=== PATIENT | female | born 1970 ===

== ENCOUNTER 2020-01-15 17:28 | Outpatient (REF) | payer MEDICAID, SELFPAY ==
[2020-01-15 17:56] LABS: MANUAL DIFF FLAG NO
[2020-01-15 17:58] LABS: Basophils Percent Auto 0.6 % (0-2); Eosinophils Absolute Auto 0.1 X10*3/uL (0.0-0.4); Eosinophils Percent Auto 1.1 % (0-4); Hematocrit 24.9 % (37-47); Hemoglobin 7.6 g/dl (12.0-16.0); Imm Gran Abs Auto 0.01 X10*3/uL (0.00-0.03); Imm Gran Pct Auto 0.2 % (0.0-0.4); Lymphocytes Absolute Auto 1.5 X10*3/uL (1.2-4.9); Lymphocytes Percent Auto 22.9 % (20-40); Mean Corpuscular HGB Conc 30.5 g/dl (31.0-35.0); Mean Corpuscular Hemoglobin 26.1 pg (27.0-33.0); Mean Corpuscular Volume 85.6 fL (80-98); Mean Platelet Volume 10.7 fL (9.4-12.3); Monocytes Absolute Auto 0.7 X10*3/uL (0.1-1.2); Monocytes Percent Auto 10.9 % (2-11); Neutrophils Absolute Auto 4.2 X10*3/uL (2.0-8.3); Neutrophils Percent Auto 64.3 % (45-73); Platelet Count 392 X10*3/uL (160-400); Red Blood Count 2.91 X10*6/uL (4.20-5.50); Red Cell Distribution Width 18.7 % (11.0-16.0); White Blood Count 6.5 X10*3/uL (4.8-10.8)
[2020-01-15 19:00] LABS: TSH reflex Free T4 0.55 mIU/mL (0.32-4.0)
[2020-01-15 19:30] LABS: Ferritin 7 ng/mL (10-250)
== END 2020-01-15 17:29 | disposition home or self-care (01) ==
LOC: HO.LAB 17:28
PROVIDERS: PCP Nurse Practitioner Family; Visit Provider Nurse Practitioner Family
DX: N93.9 Abnormal uterine and vaginal bleeding, unspecified (principal)
CPT/HCPCS: 36415; 82728; 84443; 85025

== ENCOUNTER 2020-02-28 07:54 | Outpatient (REF) | payer MEDICAID, SELFPAY ==
--- NOTE | 2020-02-28 08:01 | MM_ITS ---
EXAMINATION: MM SCREENING DIGITAL BREAST TOMOSYNTHESIS, BILATERAL CLINICAL INFORMATION: Screening. Asymptomatic. The lifetime risk of breast cancer based on the Tyrer-Cuzick Model is 8.0%. COMPARISON: Mammography: February 23, 2019 and studies dating back to April 06, 2011 TECHNIQUE: Digital breast tomosynthesis is performed in both the craniocaudal and mediolateral oblique views along with computer-aided detection (CAD). Synthesized 2D images are generated from the tomosynthesis. FINDINGS: The breasts are heterogeneously dense, which may obscure small masses (ACR BI-RADS breast composition Category c). There are no significant masses, abnormal calcifications, or other abnormalities. MM/MM tomosynthesis screening BI IMPRESSION: There are no significant changes from prior study. ASSESSMENT: BI-RADS 1: Negative RECOMMENDATION: Routine annual mammography screening. This patient's information was entered into a reminder system with a target due date for their next mammogram.
== END 2020-02-28 07:55 | disposition home or self-care (01) ==
LOC: HO.MAMMO 07:54
PROVIDERS: PCP Internal Medicine; Visit Provider Internal Medicine
DX: Z12.31 Encounter for screening mammogram for malignant neoplasm of breast (principal)
CPT/HCPCS: 77063; 77067

== ENCOUNTER 2020-03-27 11:22 | Outpatient (REF) | payer MEDICAID, SELFPAY ==
--- NOTE | 2020-03-27 | US_ITS ---
EXAMINATION: US PELVIS COMPLETE CLINICAL INFORMATION: Abnormal uterine bleeding. COMPARISON: None TECHNIQUE: Transabdominal and transvaginal ultrasound of the pelvis was performed. FINDINGS: The uterus is anteverted and anteflexed measuring 11.0 cm in length, 4.9 cm in AP and 6.1 cm in transverse dimension. Endometrial thickness is 0.7 cm. There is a hypoechoic lesion in the anterior mid body of uterus measuring 1.6 x 1.3 x 1.3 cm. A second lesion in the right upper body of the uterus measures 2.9 x 2.8 x 2.9 cm. They are consistent with small fibroids. Small nabothian cysts are seen in the cervix. The right ovary is not visualized. The left ovary measures 2.6 x 1.9 x 1.8 cm and volume 4.6 mL. There is no free fluid in cul-de-sac. US/US pelvic complete IMPRESSION: 1. Two small uterine fibroids visualized. 2. Small nabothian cysts in the cervix. 3. The left ovary is unremarkable. The right ovary is not visualized.
--- NOTE | 2020-03-27 | US_ITS ---
EXAMINATION: US PELVIS COMPLETE CLINICAL INFORMATION: Abnormal uterine bleeding. COMPARISON: None TECHNIQUE: Transabdominal and transvaginal ultrasound of the pelvis was performed. FINDINGS: The uterus is anteverted and anteflexed measuring 11.0 cm in length, 4.9 cm in AP and 6.1 cm in transverse dimension. Endometrial thickness is 0.7 cm. There is a hypoechoic lesion in the anterior mid body of uterus measuring 1.6 x 1.3 x 1.3 cm. A second lesion in the right upper body of the uterus measures 2.9 x 2.8 x 2.9 cm. They are consistent with small fibroids. Small nabothian cysts are seen in the cervix. The right ovary is not visualized. The left ovary measures 2.6 x 1.9 x 1.8 cm and volume 4.6 mL. There is no free fluid in cul-de-sac. US/US transvaginal IMPRESSION: 1. Two small uterine fibroids visualized. 2. Small nabothian cysts in the cervix. 3. The left ovary is unremarkable. The right ovary is not visualized.
== END 2020-03-27 11:23 | disposition home or self-care (01) ==
LOC: HO.US 11:22
PROVIDERS: Visit Provider Nurse Practitioner Family
DX: N93.9 Abnormal uterine and vaginal bleeding, unspecified (principal)
CPT/HCPCS: 76830; 76856

== ENCOUNTER 2020-04-17 09:19 | Outpatient (REF) | payer MEDICAID, SELFPAY ==
[2020-04-17 11:51] LABS: Hematocrit 37.8 % (37-47); Mean Corpuscular HGB Conc 29.1 g/dl (31.0-35.0); Mean Corpuscular Hemoglobin 24.7 pg (27.0-33.0); Mean Corpuscular Volume 84.8 fL (80-98); Mean Platelet Volume 11.6 fL (9.4-12.3); Platelet Count 376 X10*3/uL (160-400); Red Blood Count 4.46 X10*6/uL (4.20-5.50); Red Cell Distribution Width 18.2 % (11.0-16.0); White Blood Count 6.2 X10*3/uL (4.8-10.8)
[2020-04-18 08:48] LABS: BV Int Neg Control Negative (Negative); BV Int Pos Control Positive (Positive)
[2020-04-18 17:01] LABS: C. trachomatis RNA TMA NOT DETECTED (NOT DETECTED); N. gonorrhoeae RNA TMA NOT DETECTED (NOT DETECTED)
[2020-04-20 06:37] LABS: HPV mRNA E6/E7 rflx Not Detected (Not Detected)
== END 2020-04-17 09:20 | disposition home or self-care (01) ==
LOC: HO.LAB 09:19
PROVIDERS: PCP Internal Medicine; Visit Provider Advanced Practice Midwife
DX: N93.9 Abnormal uterine and vaginal bleeding, unspecified (principal); N84.1 Polyp of cervix uteri; Z11.51 Encounter for screening for human papillomavirus (HPV); Z11.3 Encounter for screening for infections with a predominantly sexual mode of transmission
CPT/HCPCS: 36415; 57500; 58100; 58558; 81025; 85027; 87480; 87491; 87510; 87591; 87624; 87660; 88142; 88305

== ENCOUNTER 2020-04-23 09:23 | Outpatient (REF) | payer MEDICAID, SELFPAY ==
[2020-04-23 10:00] LABS: MANUAL DIFF FLAG NO
[2020-04-23 10:05] LABS: Basophils Percent Auto 0.8 % (0-2); Eosinophils Absolute Auto 0.2 X10*3/uL (0.0-0.4); Hematocrit 33.6 % (37-47); Imm Gran Abs Auto 0.02 X10*3/uL (0.00-0.03); Imm Gran Pct Auto 0.4 % (0.0-0.4); Lymphocytes Absolute Auto 0.9 X10*3/uL (1.2-4.9); Lymphocytes Percent Auto 16.7 % (20-40); Mean Corpuscular HGB Conc 29.8 g/dl (31.0-35.0); Mean Platelet Volume 11.3 fL (9.4-12.3); Monocytes Absolute Auto 0.5 X10*3/uL (0.1-1.2); Monocytes Percent Auto 8.7 % (2-11); Neutrophils Absolute Auto 3.7 X10*3/uL (2.0-8.3); Neutrophils Percent Auto 70.4 % (45-73); Platelet Count 391 X10*3/uL (160-400); Red Cell Distribution Width 18.2 % (11.0-16.0); White Blood Count 5.3 X10*3/uL (4.8-10.8)
[2020-04-23 10:36] LABS: Estimated Average Glucose 77 mg/dL; Hemoglobin A1c % 4.3 %
[2020-04-23 10:37] LABS: Alanine Aminotransferase 24 U/L (0-31); Albumin Level 3.9 g/dL (3.5-5.0); Alkaline Phosphatase 60 U/L (39-117); Anion Gap 10 (12-20); Aspartate Amino Transferase 21 U/L (5-31); Bilirubin Total 0.4 mg/dL (0.0-1.0); Blood Urea Nitrogen 12 mg/dL (9-16); Calcium 8.4 mg/dL (8.4-10.2); Carbon Dioxide 28 mmol/L (22-29); Chloride 105 mmol/L (96-108); Cholesterol 171 mg/dL; Estimated Glomerular Filt Rate > 60; Glucose Random 86 mg/dL (60-115); HDL Cholesterol 51 mg/dL; LDL Cholesterol Calculated 105 mg/dl; Potassium 4.1 mmol/L (3.3-5.1); Sodium 139 mmol/L (135-145); Total Protein 6.6 g/dL (6.5-8.0); Triglycerides 76 mg/dL
[2020-04-23 11:00] LABS: TSH reflex Free T4 0.58 uIU/mL (0.32-4.0); Vitamin D 25-OH Total 16.8 ng/mL (>30)
== END 2020-04-23 09:24 | disposition home or self-care (01) ==
LOC: HO.LAB 09:23
PROVIDERS: Visit Provider Nurse Practitioner Family
DX: D64.9 Anemia, unspecified (principal); N93.9 Abnormal uterine and vaginal bleeding, unspecified; Z71.89 Other specified counseling
CPT/HCPCS: 36415; 80053; 80061; 82306; 83036; 84443; 85025

== ENCOUNTER → 2020-05-01 11:26 | Outpatient (BNVA) | payer MEDICAID, SELFPAY | PROVIDERS: Visit Provider Advanced Practice Midwife ==

== ENCOUNTER 2020-07-02 13:41 | Outpatient (REF) | payer MEDICAID, SELFPAY ==
[2020-07-05 15:11] LABS: HPV mRNA E6/E7 rflx Not Detected (Not Detected)
== END 2020-07-02 13:42 | disposition home or self-care (01) ==
LOC: HO.LAB 13:41
PROVIDERS: Visit Provider Advanced Practice Midwife
DX: R87.615 Unsatisfactory cytologic smear of cervix (principal)
CPT/HCPCS: 87624; 88142; 99212

== ENCOUNTER → 2020-07-16 11:13 | Outpatient (BNVA) | payer MEDICAID, SELFPAY | PROVIDERS: Visit Provider Obstetrics & Gynecology | DX: Z30.09 Encounter for other general counseling and advice on contraception (principal) | CPT/HCPCS: 99212 ==

== ENCOUNTER → 2020-08-20 08:53 | Outpatient (BNVA) | payer MEDICAID, SELFPAY | PROVIDERS: Visit Provider Obstetrics & Gynecology | DX: Z30.09 Encounter for other general counseling and advice on contraception (principal) | CPT/HCPCS: 99212 ==

== ENCOUNTER 2020-08-22 05:58 | Day surgery (SDC) | payer MEDICAID, SELFPAY ==
[2020-08-22] VITALS (9 sets, daily range): BP systolic 111–134; BP diastolic 67–83; PULSE 64–75; RESP 16–20; TEMP 36.8–37; O2SAT 91–100; BMI 33.3
[2020-08-22 06:22] LABS: UPreg QC Valid YES; Urine Pregnancy NEGATIVE (NEGATIVE)
[2020-08-22] MEDS: Lactated Ringers 1,000 ML 100 ML IVCONT (06:35)
--- NOTE | 2020-08-22 07:13 | MHC.SHP ---
Pre-Procedural Eval Section A Date of Service: 08/22/20 The patient is an INPATIENT: No Changes since office visit: No Cold of Flu in the past 2 weeks, No New Medical Problems, No Changes in Medication and No Patient answered all questions The History & Physical has been completed within 30 days and I have reviewed it.: Yes Section B Chief Complaint: unwanted fertility Allergies: Allergies Allergy/AdvReac Type Severity Reaction Status Date / Time No Known Allergies Allergy Verified 08/20/20 09:13 [No Known Allergies*] Plan I have reviewed the history and physical and performed a pertinent physical examination on my patient. No changes have occurred unless specified.
--- NOTE | 2020-08-22 07:13 | W.PM.OPN ---
Operative Note Operative Note Date of Service: 08/22/20 Narrative: Pre-Procedure Diagnosis: unwanted fertility Post-Procedure Diagnosis: unwanted fertility Procedures performed: Laparoscopic bilateral salpingectomy Duty Manager: none Complications: none Specimens: bilateral fallopian tubes Disposition: Pacu Ms. Pringle is a 49 year old who has completed her family planning and desires a permanent form of sterilization. Surgical Risks: The patient was informed of the risks and benefits of the procedure. Risks included but were not limited to bleeding, infection, injury to the ovaries, uterus, bladder, bowels, nerves, and blood vessels. The patient was counseled on the risk of sterilization failure being about 1% on average. The patient was informed that in the event a occurs, the risk of ectopic is increased. The patient expressed understanding of the risks involved, all questions were answered, and the patient consented to the procedure. The patient had valid sterilization consent at the time of the procedure. The patient was taken to the operating room where a time out was performed to confirm correct patient and correct procedure. General anesthesia was established. The patient was then positioned on the operating table in the dorsal lithotomy position with the legs supported using stirrups. All pressure points were padded and a Sabine hugger was placed to maintain control of core body temperature. The patient was then prepped and draped in the usual sterile fashion. A red rubber catheter was inserted and the bladder was emptied. A sponge stick was placed in the vagina for uterine manipulation. Attention was turned to the abdomen where a 5mm vertical infraumbilical incision was made. The 5mm trocar was introduced under direct visualization using the laparoscopy within the sleeve of the trocar. After intra-abdominal placement had been confirmed, the trocar was removed leaving the sleeve in place. The camera was introduced and pneumoperitoneum was established using carbon dioxide. Inspection of the abdominal cavity showed no gross abnormalities and there was no evidence of injury to the bowel, bladder, or vasculature. Attention was turned to the pelvis. The patient was placed into Trendelenburg position. The fallopian tubes and ovaries were visualized bilaterally. A small pedunculated fibroid was noted on the left fundus of the uterus. The tubes were noted to be bilaterally dilated and with some scarring to the pelvic sidewalls. A small incision was made on the patient's left approximately 2cm superior and 2cm medial to the left ASIS. A 5mm trocar was introduced through this incision under direct visualization with the laparoscope. A small incision was made on the patient's right approximately 2cm superior and 2cm medial to the right ASIS. A 5mm trocar was introduced through this incision under direct visualization with the laparoscope. The fallopian tubes were inspected bilaterally and the fimbriated ends of the fallopian tube were visualized bilaterally. The distal end of the left tube was grasped and lifted up and being careful to avoid the ovarian vessels, salpingectomy was performed walking the Ligasure device from the distal to the medial end of the tube, where it was cauterized and cut from the uterus at the cornua and removed through the trocar. The identical procedure was then performed on the right. The right 5mm was changed to a 12mm port as the tubes were too large to fit through the 5mm port; the skin incision was extended for this and the 12mm trocar introduced under direct visualization with the laparoscope. The tubes were sent to pathology for analysis. The 12mm port was removed and the fascial closure device was used to close the fascial incision with one interrupted 0-Vicryl suture. The pneumoperitoneum was then evacuated. The laparoscope was removed and the trocar sleeves were removed. The sponge stick was removed from the vagina. The skin incisions were closed each with a single interrupted 3-0 Vicryl suture and Dermabond was applied. Good hemostasis was confirmed. The patient was transferred to the recovery room in stable condition. All needle, sponge, and instrument counts were noted to be correct x2 at the end of the procedure.
--- NOTE | 2020-08-22 07:13 | HO.ANESPROP2 ---
HPI - Anesthesia Eval Consult details Narrative: 49 yo female patient for Laparoscopic bilateral salpingectomy PMFSH Active Problems Active Problems: All Active Problems (Updated 08/21/20 @ 14:53 by Beba Barboza MD) Unwanted fertility (Acute) Abnormal uterine bleeding (AUB) (Acute) Encounter for repeat Pap smear due to previous insufficient cervical cells (Acute) Past Medical History Medical History (Updated 08/22/20 @ 07:38 by Fozia Lazaro) Abnormal uterine bleeding Anemia H/O: hypertension Family History Family history of problems with anesthesia: No Surgical History History of Problems with Anesthesia: No (Never had anesthesia) Social History Social History Alcohol intake: never Patient Tobacco Use Status: Never used Tobacco Use of substances other than those prescribed or required for medical reasons: No Are you DNR?: No Advance Directives: No Advance Directives Information Provided: Yes Meds Allergies Allergy/AdvReac Type Severity Reaction Status Date / Time No Known Allergies Allergy Verified 08/20/20 09:13 [No Known Allergies*] Home Medications Medication Instructions Recorded Confirmed Last Taken Type propranolol 40 mg/5 mL (8 mg/mL) 40 mg PO BID 05/01/20 Unknown History oral solution Exam Exam Date and Time: August 22, 2020 0713 Height,Weight and Vital Signs: Height 5 ft 4 in Weight 87.997 kg Last Vital Signs Temp 98.2 F 08/22/20 06:24 Pulse 75 08/22/20 06:24 Resp 16 08/22/20 06:24 BP 120/76 08/22/20 06:24 Pulse Ox 99 08/22/20 06:24 Pertinent Lab Results Pertinent Lab Results: Laboratory Tests 08/22/20 06:06 Urine Test NEGATIVE Airway Mallampati Class: II TM Dist: >3cm Neck ROM: Full Loose/Missing/Broken Teeth: No (Top front teeth ridged- patient states not cracked. Missing 1 bottom left) Heart: RRR Lungs: CTAB Assessment and Plan Assessment Anesthesia Assessment: Anesthesia Plan Discussed and Chart Reviewed Final Anesthetic Review NPO: Yes ASA Class: II Final Preanesthetic Review: No Changes in Pt Med Stat, Meds/Allgs Chart Reviewed and Anes Risks/Benef Reviewed Patient Risk: Low Procedure Risk: Low Assessment/Block/Sedation in SS: Assess/Block/Sedation-SS Anesthetic Plan Anesthetic Plan: GA Disposition: Standard PACU
[2020-08-22] MEDS: oxyCODONE HCl Immed Release 5 MG TABLET PO (09:00)
[2020-08-22] MEDS: fentaNYL citrate/PF 100 MCG/2 ML VIAL 25 MCG IVPUSH ×2 (09:00→09:17)
[2020-08-22] MEDS: Acetaminophen 325 MG TABLET 650 MG PO (09:00)
== END 2020-08-22 10:05 | disposition home or self-care (01) ==
LOC: HO.SSS 05:59
PROVIDERS: PCP Nurse Practitioner Family; Visit Provider Obstetrics & Gynecology
PROC: (CPT 58661; principal; 2020-08-22 07:30)
DX: Z30.2 Encounter for sterilization (principal); D64.9 Anemia, unspecified; Z79.899 Other long term (current) drug therapy
CPT/HCPCS: 58661; 81025; 88302; J1100; J1885; J2250; J2405; J3010

== ENCOUNTER → 2020-09-02 11:24 | Outpatient (BNVA) | payer MEDICAID, SELFPAY | PROVIDERS: Visit Provider Obstetrics & Gynecology ==

== ENCOUNTER 2020-09-23 08:31 | Outpatient (REF) | payer MEDICAID, SELFPAY ==
[2020-09-23 13:45] LABS: CT PCR NOT DETECTED (Not Detect.); NG PCR NOT DETECTED (Not Detect.)
== END 2020-09-23 08:32 | disposition home or self-care (01) ==
LOC: HO.LAB 08:31
PROVIDERS: Visit Provider Obstetrics & Gynecology
DX: N93.9 Abnormal uterine and vaginal bleeding, unspecified (principal); N92.1 Excessive and frequent menstruation with irregular cycle; D64.9 Anemia, unspecified; Z90.721 Acquired absence of ovaries, unilateral; Z79.899 Other long term (current) drug therapy
CPT/HCPCS: 58353; 36415; 58100; 84702; 85027; 86850; 86900; 86901; 87491; 87591; 88305; 99212; J1100; J2250; J3010

== ENCOUNTER 2020-09-23 09:51 | Day surgery (SDC) | payer MEDICAID, SELFPAY ==
[2020-09-23] VITALS (7 sets, daily range): BP systolic 121–139; BP diastolic 73–85; PULSE 70–95; RESP 16–18; TEMP 36.3–37.3; O2SAT 97–100; BMI 31.7
[2020-09-23 11:30] LABS: Hematocrit 25.9 % (37-47); Hemoglobin 7.5 g/dl (12.0-16.0); Mean Corpuscular Hemoglobin 21.9 pg (27.0-33.0); Mean Corpuscular Volume 75.7 fL (80-98); Mean Platelet Volume 10.6 fL (9.4-12.3); Platelet Count 294 X10*3/uL (160-400); Red Blood Count 3.42 X10*6/uL (4.20-5.50); Red Cell Distribution Width 24.1 % (11.0-16.0); White Blood Count 6.2 X10*3/uL (4.8-10.8)
--- NOTE | 2020-09-23 11:38 | P.CONAN_ITS ---
FORMERLY [facility], [facility] Active Problems Active Problems: All Active Problems (Updated 09/23/20 @ 09:04 by Cody Jenkins MD) Sterilization (Acute) Unwanted fertility (Acute) Abnormal uterine bleeding (AUB) (Acute) Encounter for repeat Pap smear due to previous insufficient cervical cells (Acute) Past Medical History Medical History Abnormal uterine bleeding Anemia H/O: hypertension Family History Family history of problems with anesthesia: No Surgical History Surgical History History of bilateral salpingectomy History of Problems with Anesthesia: No (Never had anesthesia) Social History Social History Alcohol intake: never Patient Tobacco Use Status: Never used Tobacco Second Hand Smoke Exposure: No Use of substances other than those prescribed or required for medical reasons: No Are you DNR?: No Advance Directives: No Advance Directives Information Provided: Yes Advance Directives on File: No Patient : No Meds Allergies Allergy/AdvReac Type Severity Reaction Status Date / Time No Known Allergies Allergy Verified 09/23/20 08:38 [No Known Allergies*] Home Medications Medication Instructions Recorded Confirmed Last Taken Type propranolol 40 mg/5 mL (8 mg/mL) 40 mg PO BID 05/01/20 Unknown History oral solution norethindrone acetate 5 mg tablet 5 mg PO DAILY 09/23/20 Unknown History Exam Exam Date and Time: September 23, 2020 1138 Height,Weight and Vital Signs: Height 5 ft 4 in Weight 83.915 kg Last Vital Signs Temp 99.1 F 09/23/20 10:07 Pulse 95 09/23/20 10:07 Resp 16 09/23/20 10:07 BP 139/85 09/23/20 10:07 Pulse Ox 100 09/23/20 10:07 Pertinent Lab Results Pertinent Lab Results: Laboratory Tests 09/23/20 11:13 WBC 6.2 RBC 3.42 L Hgb 7.5 L D Hct 25.9 L D MCV 75.7 L MCH 21.9 L MCHC 29.0 L RDW 24.1 H Plt Count 294 MPV 10.6 Absolute Nucleated RBC 0.000 Nucleated RBC % (auto) 0.0 Assessment and Plan Assessment Anesthesia Assessment: Anesthesia Plan Discussed Final Anesthetic Review Family History of Problems with Anesthesia: No History of Problems with Anesthesia: No (Never had anesthesia) NPO: Yes ASA Class: II Patient Risk: Low Procedure Risk: Low Anesthetic Plan Anesthetic Plan: GA Disposition: Standard PACU
[2020-09-23 11:56] LABS: HCG Quantitative < 2 mIU/mL
--- NOTE | 2020-09-23 11:59 | MHC.SHP ---
Pre-Procedural Eval Section A Date of Service: 09/23/20 The patient is an INPATIENT: No Changes since office visit: No Cold of Flu in the past 2 weeks, No New Medical Problems, No Changes in Medication and No Patient answered all questions The History & Physical has been completed within 30 days and I have reviewed it.: Yes Section B Chief Complaint: vaginal bleeding Allergies: Allergies Allergy/AdvReac Type Severity Reaction Status Date / Time No Known Allergies Allergy Verified 09/23/20 08:38 [No Known Allergies*] Plan Diagnosis/Plan: Unchanged I have reviewed the history and physical and performed a pertinent physical examination on my patient. No changes have occurred unless specified.
--- NOTE | 2020-09-23 12:43 | P.BOP_ITS ---
Brief Operative Note Date of Service: 09/23/20 Pre-op diagnosis: Menometrorrhagia with anemia Post-op diagnosis: same Procedure: D&C with NovaSure endometrial ablation Surgeon: Cody Jenkins MD Anesthesia: MAC Was an Learning Development Specialist used for this Procedure?: No Estimated blood loss (mL): 0 Pathology: other (Endometrial scraping) Condition: stable Disposition: PACU
--- NOTE | 2020-09-23 12:44 | W.PM.OPN ---
Operative Note Operative Note Date of Service: 09/23/20 Narrative: Preop diagnosis: Menmetroorrhagia presenting me a Post Op Diagnosis: Same Op: D&C with Novasure Endometrial Ablation Anesthesia: MAC Apartment Leasing Agent: None QBL: Minimal Pathology: None Complications: None Procedure: The patient was put in the dorsal lithotomy position. She was prepped and draped in the usual sterile manner. Bimanual exam prior to prepping revealed a mobile, anteverted uterus. A speculum was placed in the vagina and the anterior lip of the cervix was grasped with a single toothed tenaculum and brought forward. The cervix was dilated come, this was followed by sharp curettage and moderate amount of tissues were retrieved. Taking care not to enter deep into the uterus, a sound was passed inside to measure the length of the uterus and cervix. This length was found to be 8 cm. Next, Hegar dilator was inserted into the cervical os to measure the cervical length which was 3 cm. This yielded an endometrial cavity length of 5 cm. A series of Hegar dilators were then inserted sequentially into the cervical os up to a size of 5 mm. The Novasure device was then opened and tested; the fan deployed easily. The instrument was set to the correct cavity length and introduced into the uterine cavity. The fan was slowly deployed with gentle movements to ensure a snug fit within the cavity. The cavity width read 5 cm. The measurements were imported and a cavity check was done. The trumpet was then slid down to the cervix and the device was activated. The total burn time was 82 seconds. The fan was retracted and device removed. The fan was examined and revealed charred tissue. The tenaculum was removed and the cervix examined for hemostasis which was achieved using pressure. Finally the speculum was removed. The patient tolerated the procedure well and was brought to the recovery room in a stable condition. At the end of the procedure all sponges and instruments were counted and correct. The blood loss was minimal and there were no complications.
== END 2020-09-23 14:00 | disposition home or self-care (01) ==
PROVIDERS: PCP Nurse Practitioner Family; Visit Provider Obstetrics & Gynecology
PROC: (CPT 58353; principal; 2020-09-23 12:00)
DX: N92.1 Excessive and frequent menstruation with irregular cycle (principal); D64.9 Anemia, unspecified; Z90.721 Acquired absence of ovaries, unilateral; Z79.899 Other long term (current) drug therapy
CPT/HCPCS: 58353; 36415; 84702; 85027; 86850; 86900; 86901; 88305; J1100; J2250; J3010

== ENCOUNTER → 2020-12-13 13:51 | Outpatient (BNVA) | payer MEDICAID, SELFPAY | PROVIDERS: Visit Provider Nurse Practitioner Family | DX: K62.5 Hemorrhage of anus and rectum (principal); D64.9 Anemia, unspecified; N93.9 Abnormal uterine and vaginal bleeding, unspecified | CPT/HCPCS: 99202 ==

== ENCOUNTER 2020-12-31 09:46 | Outpatient (REF) | payer MEDICAID, SELFPAY ==
[2020-12-31 10:15] LABS: Hematocrit 41.5 % (37.0-47.0); Hemoglobin 13.2 g/dl (12.0-16.0); Mean Corpuscular HGB Conc 31.8 g/dl (31.0-35.0); Mean Corpuscular Hemoglobin 28.3 pg (27.0-33.0); Mean Corpuscular Volume 88.9 fL (80.0-98.0); Mean Platelet Volume 10.4 fL (9.4-12.3); Platelet Count 278 X10*3/uL (160-400); Red Blood Count 4.67 X10*6/uL (4.20-5.50); Red Cell Distribution Width 15.2 % (11.0-16.0); White Blood Count 5.8 X10*3/uL (4.8-10.8)
[2020-12-31 10:46] LABS: Alanine Aminotransferase 17 U/L (0-31); Albumin Level 3.8 g/dL (3.5-5.0); Alkaline Phosphatase 72 U/L (39-117); Anion Gap 11 (12-20); Aspartate Amino Transferase 15 U/L (5-31); Bilirubin Total 0.4 mg/dL (0.0-1.0); Blood Urea Nitrogen 9 mg/dL (9-16); Calcium 8.8 mg/dL (8.4-10.2); Carbon Dioxide 28 mmol/L (22-29); Chloride 108 mmol/L (96-108); Estimated Glomerular Filt Rate > 60; Glucose Random 85 mg/dL (60-115); Potassium 4.2 mmol/L (3.3-5.1); Sodium 143 mmol/L (135-145); Total Protein 6.5 g/dL (6.5-8.0)
== END 2020-12-31 09:47 | disposition home or self-care (01) ==
LOC: HO.LAB 09:46
PROVIDERS: Visit Provider Nurse Practitioner Family
DX: Z12.11 Encounter for screening for malignant neoplasm of colon (principal)
CPT/HCPCS: 36415; 80053; 85027

== ENCOUNTER 2021-02-24 08:15 | Day surgery (SDC) | payer MEDICAID, SELFPAY ==
--- NOTE | 2021-02-20 11:57 | P.CONAN_ITS ---
Documented by User: Shamika Garcia NP 02/20/21 11:58 HPI - Anesthesia Eval Consult details Narrative: 50yo F for Colonoscopy PMFSH Active Problems Active Problems: All Active Problems (Updated 09/23/20 @ 15:34 by Cody Jenkins MD) Abnormal uterine bleeding (AUB) (Acute) Encounter for repeat Pap smear due to previous insufficient cervical cells (Acute) Unwanted fertility (Acute) Sterilization (Acute) Rectal bleeding (Acute) Past Medical History Medical History Abnormal uterine bleeding Anemia H/O: hypertension Family History Family History (Updated 12/13/20 @ 14:06 by Lucinda Corral) Father Diabetes HTN (hypertension) Mother Asthma Family history of problems with anesthesia: No Surgical History Surgical History History of endometrial ablation Hx of tubal ligation History of Problems with Anesthesia: No (Never had anesthesia) Social History Social History Alcohol intake: never Patient Tobacco Use Status: Never used Tobacco Second Hand Smoke Exposure: No Advance Directives: No Advance Directives Information Provided: Yes Meds Allergies Allergy/AdvReac Type Severity Reaction Status Date / Time No Known Allergies Allergy Verified 02/17/21 11:50 [No Known Allergies*] Home Medications Medication Instructions Recorded Confirmed Last Taken Type norethindrone acetate 5 mg tablet 5 mg PO DAILY 09/23/20 02/17/21 Unknown History propranolol 40 mg tablet mg PO BEDTIME 01/08/21 01/08/21 Unknown History Exam Exam Date and Time: February 20, 2021 1157 Pertinent Lab Results Pertinent Lab Results: Laboratory Tests 12/31/20 12/31/20 09:58 09:58 WBC 5.8 Hgb 13.2 Hct 41.5 Plt Count 278 Sodium 143 Potassium 4.2 Chloride 108 Carbon Dioxide 28 BUN 9 Creatinine 0.68 Assessment and Plan Assessment Anesthesia Assessment: Chart Reviewed Final Anesthetic Review Family History of Problems with Anesthesia: No History of Problems with Anesthesia: No (Never had anesthesia) Documented by User: Ddii Soni MD 02/24/21 09:38 [facility] Past Medical History Medical History Abnormal uterine bleeding Anemia H/O: hypertension Family History Family History (Updated 12/13/20 @ 14:06 by Lucinda Corral) Father Diabetes HTN (hypertension) Mother Asthma Surgical History Surgical History History of endometrial ablation Hx of tubal ligation Social History Social History Alcohol intake: never Patient Tobacco Use Status: Never used Tobacco Second Hand Smoke Exposure: No Advance Directives: No Advance Directives Information Provided: Yes Meds Allergies Allergy/AdvReac Type Severity Reaction Status Date / Time No Known Allergies Allergy Verified 02/17/21 11:50 [No Known Allergies*] Home Medications Medication Instructions Recorded Confirmed Last Taken Type norethindrone acetate 5 mg tablet 5 mg PO DAILY 09/23/20 02/17/21 Unknown History propranolol 40 mg tablet mg PO BEDTIME 01/08/21 01/08/21 Unknown History Exam Airway Mallampati Class: II TM Dist: >3cm Neck ROM: Full Heart: rrr Lungs: cta Assessment and Plan Assessment Anesthesia Assessment: Anesthesia Plan Discussed and Chart Reviewed Final Anesthetic Review NPO: Yes ASA Class: II Final Preanesthetic Review: No Changes in Pt Med Stat, Meds/Allgs Chart Reviewed and Consent Obtained/Reviewed Patient Risk: Intermediate Procedure Risk: Intermediate Anesthetic Plan Anesthetic Plan: MAC: Disposition: Standard PACU
[2021-02-24 10:03] VITALS: BP 137/92; PULSE 66; RESP 16; TEMP 35.8; O2SAT 97; BMI 33.5
--- NOTE | 2021-02-24 10:18 | MHC.SHP ---
Pre-Procedural Eval Section A Date of Service: 02/24/21 The patient is an INPATIENT: No The History & Physical has been completed within 30 days and I have reviewed it.: No Section B Chief Complaint: Screening Details of Present Illness: Colon cancer screening, rectal bleeding, anemia Relevant Family History (Specify if Yes): No Relevant Social History: None Present Medications: see Short Stay Collaborative assessment Medical History: Significant History (Abnormal uterine bleeding Anemia H/O: hypertension) History of Previous Operations: Relevant previous surgery/procedure and date(s) (History of bilateral salpingectomy Hx of tubal ligation) Allergies: Allergies Allergy/AdvReac Type Severity Reaction Status Date / Time No Known Allergies Allergy Verified 02/17/21 11:50 [No Known Allergies*] Review of Systems Sugical H&P ROS: Negative: Constitution, Cardiovascular, Respiratory and Gastrointestinal Exam Surgical H&P Exam: Normal: Heart, Normal: Lungs, Normal: Extremities and Normal: Abdomen Plan Diagnosis/Plan: Unchanged I have reviewed the history and physical and performed a pertinent physical examination on my patient. No changes have occurred unless specified.
--- NOTE | 2021-02-24 10:42 | PM.OP ---
Brief Operative Note Date of Service: 02/24/21 Pre-op diagnosis: Colon cancer screening, rectal bleeding Post-op diagnosis: other (Colon polyps, diverticulosis, hemorrhoids) Procedure: COLONOSCOPY TILL CECUM WITH BIOPSIES Consent: Indications for the procedure and potential complications of bleeding, perforation, reaction to medications and missed diagnosis were discussed with the patient and informed consent was obtained. Instrument: Olympus PCF H 190 L variable stiffness pediatric colonoscope Monitoring: Vital signs and clinical assessment, intermittent blood pressure monitoring, continuous EKG monitoring, Pulse oximetry and Carbon Dioxide monitoring were done throughout the procedure. Colon withdrawl time was 18 minutes. Procedure: The patient was placed in the left lateral decubitis position and pre-procedure medications were administered. After a digital rectal examination of the ano-rectum, the video colonoscope was inserted into the rectum and advanced through the colon to the cecum. The colonoscope was slowly withdrawn in a retrograde panoramic fashion and the colon mucosa was carefully examined including a retroflexed view of the rectum. Findings and interventions are described below. Procedure Difficulty: Without difficulty Findings: Terminal Ileum: Not evaluated Cecum: Normal Ascending Colon: Normal Transverse Colon: Normal Descending Colon: Normal Sigmoid Colon: Two 3-4 mm sessile polyps removed with a cold bx. Moderate diverticulosis Rectum: Normal Ano-rectum: Moderate internal hemorrhoids and perianal skin tags Colon preparation: Excellent Impression and Post Procedure Diagnosis: Colonoscopy Findings: Two small polyps removed Moderate diverticulosis seen in the sigmoid colon Moderate hemorrhoids on retroflexed exam - likely source of rectal bleeding. Plan: Await pathology results Patient has an appointment on 03/19/21 in the [facility] with Ayaka Ng FNP-BC . Repeat Colonoscopy interval based on path results - in 5 years if polyps are adenomatous and 10 years if polyps are hyperplastic. Above findings were reviewed with the patient and colon polyps, hemorrhoids and diverticulosis handouts were given in the discharge area Surgeon: Nate Blanton MD Anesthesia: MAC (Missy Gresham CRNA) Was an Fern Picker used for this Procedure?: No Fern Picker: Nichole Hayden Estimated blood loss (mL): 0
--- NOTE | 2021-02-24 10:47 | PCN2_ITS ---
Brief Operative Note Date of procedure: 02/24/21 Pre-op diagnosis: Colon cancer screening, rectal bleeding Post-op diagnosis: other (Colon polyps, diverticulosis, hemorrhoids) Procedure: Procedure:? COLONOSCOPY TILL CECUM WITH BIOPSIES Consent: Indications for the procedure and potential complications of bleeding, perforation, reaction to medications and missed diagnosis were discussed with the patient and informed consent was obtained. Instrument: Olympus PCF H 190 L variable stiffness pediatric colonoscope Monitoring: Vital signs and clinical assessment, intermittent blood pressure monitoring, continuous EKG monitoring, Pulse oximetry and Carbon Dioxide monitoring were done throughout the procedure. Colon withdrawl time was 18 minutes. Procedure: The patient was placed in the left lateral decubitis position and pre-procedure medications were administered. After a digital rectal examination of the ano-rectum, the video colonoscope was inserted into the rectum and advanced through the colon to the cecum. The colonoscope was slowly withdrawn in a retrograde panoramic fashion and the colon mucosa was carefully examined including a retroflexed view of the rectum. Findings and interventions are described below. Procedure Difficulty: Without difficulty Findings: Terminal Ileum: Not evaluated Cecum:? Normal Ascending Colon:? Normal Transverse Colon:? Normal Descending Colon:? Normal Sigmoid Colon:? Two 3-4 mm sessile polyps removed with a cold bx. Moderate diverticulosis Rectum:? Normal Ano-rectum:? Moderate internal hemorrhoids and perianal skin tags Colon preparation: Excellent ? Impression and Post Procedure Diagnosis: Colonoscopy Findings: Two small polyps removed Moderate diverticulosis seen in the sigmoid colon Moderate hemorrhoids on retroflexed exam - likely source of rectal bleeding. Plan: Await pathology results Patient has an appointment on 03/19/21 in the [facility] with Ayaka Ng FNP- BC . Repeat Colonoscopy interval based on path results - in 5 years if polyps are adenomatous and 10 years if polyps are hyperplastic. Above findings were reviewed with the patient and colon polyps, hemorrhoids and diverticulosis handouts were given in the discharge area Surgeon:?Nate Blanton MD Anesthesia: MAC (Missy Gresham, STANLEY) Surgeon: Nate Blanton Trampoline Team Coach: Nichole Hayden Pathology: other (A. sigmoid polyps (2)) Condition: stable Disposition: PACU
[2021-02-24] MEDS: Lactated Ringers 1,000 ML 100 ML IVCONT (10:56)
[2021-02-24 11:20] VITALS: BP 108/59; PULSE 78; RESP 16; TEMP 36.3; O2SAT 98
[2021-02-24 11:35] VITALS: BP 136/84; PULSE 63; RESP 16; TEMP 36.3; O2SAT 100
== END 2021-02-24 12:10 | disposition home or self-care (01) ==
PROVIDERS: Visit Provider Internal Medicine Gastroenterology
PROC: 0DJD8ZZ Inspection of Lower Intestinal Tract, Via Natural or Artificial Opening Endoscopic (ICD-10-PCS; CPT 45378; principal; 2021-02-24 09:50)
DX: Z12.11 Encounter for screening for malignant neoplasm of colon (principal); D12.5 Benign neoplasm of sigmoid colon; K57.30 Diverticulosis of large intestine without perforation or abscess without bleeding; K64.8 Other hemorrhoids; K64.4 Residual hemorrhoidal skin tags; K59.00 Constipation, unspecified; N93.9 Abnormal uterine and vaginal bleeding, unspecified; D64.9 Anemia, unspecified; Z79.899 Other long term (current) drug therapy
CPT/HCPCS: 45380; 88305

== ENCOUNTER 2021-03-17 16:00 | Outpatient (REF) | payer MEDICAID, SELFPAY ==
--- NOTE | ~2021-03-17 | MM_ITS ---
EXAMINATION: MM SCREENING DIGITAL BREAST TOMOSYNTHESIS, BILATERAL CLINICAL INFORMATION: Screening. Asymptomatic. The lifetime risk of breast cancer based on the Tyrer-Cuzick Model is 8%. COMPARISON: Mammography: 02/28/2020, 02/23/2019, 01/10/2018, 01/06/2017 TECHNIQUE: Digital breast tomosynthesis is performed in both the craniocaudal and mediolateral oblique views along with computer-aided detection (CAD). Synthesized 2D images are generated from the tomosynthesis. FINDINGS: The breasts are heterogeneously dense, which may obscure small masses (ACR BI-RADS breast composition Category c). There are no significant masses, abnormal calcifications, or other abnormalities. Parenchymal pattern is similar to prior studies. There is no developing density or architectural abnormality. Breast tissue composition borders on average fibroglandular. The axilla and skin contours are unremarkable. No significant changes. MM/MM tomosynthesis screening BI IMPRESSION: No mammographic evidence of malignancy. ASSESSMENT: BI-RADS 1: Negative RECOMMENDATION: Routine annual mammography screening. This patient's information was entered into a reminder system with a target due date for their next mammogram.
== END 2021-03-17 16:01 | disposition home or self-care (01) ==
LOC: HO.MAMMO 16:00
PROVIDERS: Visit Provider Nurse Practitioner
DX: Z12.31 Encounter for screening mammogram for malignant neoplasm of breast (principal)
CPT/HCPCS: 77063; 77067

== ENCOUNTER 2021-03-25 11:59 | Outpatient (REF) | payer MEDICAID, SELFPAY ==
--- NOTE | ~2021-03-25 | XR_ITS ---
EXAMINATION: XR HIP, LEFT CLINICAL INFORMATION: Pain left hip. COMPARISON: None TECHNIQUE: Two views of the left hip. FINDINGS: Bones and soft tissues are normal. No fracture. Alignment is anatomic. Hip joint space is maintained. XR/XR hip LT min 2V IMPRESSION: Unremarkable left hip.
== END 2021-03-25 12:00 | disposition home or self-care (01) ==
LOC: HO.XRAY 11:59
PROVIDERS: PCP Nurse Practitioner; Visit Provider Nurse Practitioner
DX: M25.552 Pain in left hip (principal)
CPT/HCPCS: 73502

== ENCOUNTER 2021-04-07 13:16 | Outpatient (REF) | payer MEDICAID, SELFPAY ==
--- NOTE | ~2021-04-07 | US_ITS ---
EXAMINATION: US VENOUS ULTRASOUND WITH DOPPLER LOWER EXTREMITY, LEFT CLINICAL INFORMATION: Pain COMPARISON: None TECHNIQUE: Ultrasound of the deep veins is performed from the hip to the calf with compression sonography and color and pulse Doppler assessment. Spectral analysis with color-flow imaging is performed. FINDINGS: There is normal venous compression and respiratory variation and augmented flow. The visualized common femoral vein, superficial femoral vein, profunda femoral vein, popliteal vein, and the trifurcation region shows no evidence of deep venous thrombosis. There is no significant popliteal fossa cyst. US/US venous duplex LE LT IMPRESSION: No DVT demonstrated in the left lower extremity.
== END 2021-04-07 13:17 | disposition home or self-care (01) ==
LOC: HO.US 13:16
PROVIDERS: Absent Provider Nurse Practitioner; PCP Nurse Practitioner; Visit Provider Emergency Medicine
DX: M79.605 Pain in left leg (principal)
CPT/HCPCS: 93971

== ENCOUNTER → 2021-04-21 12:50 | Outpatient (BNVA) | payer MEDICAID, SELFPAY | PROVIDERS: PCP Nurse Practitioner; Visit Provider Advanced Practice Midwife ==

== ENCOUNTER 2021-05-07 09:21 | Outpatient (REF) | payer MEDICAID, SELFPAY ==
--- NOTE | ~2021-05-07 | US_ITS ---
EXAMINATION: US THYROID CLINICAL INFORMATION: Nontoxic single thyroid nodule. COMPARISON: Ultrasound soft tissue head/neck thyroid dated 11/18/2015. TECHNIQUE: Linear transducer grayscale and color Doppler examination with attention to the region of the thyroid. FINDINGS: SIZE: Measurements of the thyroid lobes and nodules are given in sagittal, anteroposterior and transverse dimensions respectively. Right Thyroid Lobe: 6.0 x 2.5 x 2.6 cm, volume 20.4 mL. Previously 5.8 x 2.8 x 2.8 cm, volume 24.0 mL. Parenchyma: The gland echotexture is homogeneous. Thyroid vascularity is increased. Left Thyroid Lobe: 5.3 x 1.4 x 1.8 cm, volume 7.0 mL. Previously 4.5 x 1.5 x 1.6 cm, volume 5.8 mL. Parenchyma: The gland echotexture is homogeneous. Thyroid vascularity is normal. Isthmus: 0.3 cm in maximum AP dimension. Previously 0.3 cm. Estimated total number of nodules greater than or equal to 1 cm: 4. Systems Test Analyst nodules are described as follows: 1. Location: Right mid. Size: 2.2 x 2.2 x 1.8 cm, volume 4.63 mL. Previously: 2.7 x 2.5 x 2.6 cm, volume 9.12 mL. Nodule characteristics: Composition: Mixed cystic and solid (1). Echogenicity: Isoechoic (1). Shape: Not taller than wide (0). Margins: Smooth (0). Echogenic Foci: None (0). ACR TI-RADS total points: 2 ACR TI-RADS category: 2 Significant change in size (>/= 20% in 2 dimensions and minimal increase of 2 mm or 50% or greater increase in volume): No Change in features: No Change in ACR TI-RADS risk category: No 2. Location: Right superior. Size: 1.1 x 0.9 x 0.7 cm, volume 0.40 mL. Previously: Not documented on the prior study. Nodule characteristics: Composition: Mixed cystic and solid (1). Echogenicity: Isoechoic (1). Shape: Not taller than wide (0). Margins: Smooth (0). Echogenic Foci: None (0). ACR TI-RADS total points: 3 ACR TI-RADS category: 3 3. Location: Right mid. Size: 0.9 x 0.4 x 0.6 cm, volume 0.11 mL. Previously: Not documented on the prior study. Nodule characteristics: Composition: Mixed cystic and solid (1). Echogenicity: Isoechoic (1). Shape: Not taller than wide (0). Margins: Smooth (0). Echogenic Foci: None (0). ACR TI-RADS total points: 2 ACR TI-RADS category: 2 4. Location: Right inferior. Size: 1.1 x 0.9 x 0.9 cm, volume 0.49 mL. Previously: Not documented on the prior study. Nodule characteristics: Composition: Mixed cystic and solid (1). Echogenicity: Isoechoic (1). Shape: Not taller than wide (0). Margins: Smooth (0). Echogenic Foci: Punctate echogenic foci (3). ACR TI-RADS total points: 5 ACR TI-RADS category: 4 5. Location: Left superior. Size: 1.0 x 0.6 x 0.4 cm, volume 0.12 mL. Previously: 0.4 x 0.3 x 0.4 cm, volume 0.03 mL. Nodule characteristics: Composition: Solid (2). Echogenicity: Isoechoic (1). Shape: Not taller than wide (0). Margins: Smooth (0). Echogenic Foci: Punctate echogenic foci (3). ACR TI-RADS total points: 6 ACR TI-RADS category: 4 Significant change in size (>/= 20% in 2 dimensions and minimal increase of 2 mm or 50% or greater increase in volume): Yes Change in features: Yes, punctate echogenic foci were not previously seen Change in ACR TI-RADS risk category: Yes NODES: No lymphadenopathy is seen in the tissue surrounding the thyroid gland. US/US thyroid IMPRESSION: A 1.0 cm left TR 4 thyroid nodule is increased in size from prior and demonstrates new punctate echogenic foci. Recommend one-year follow-up thyroid ultrasound. A 1.1 cm TR 4 right inferior thyroid nodule is new from prior. Recommend one-year follow-up thyroid ultrasound. The remainder of TR 2 and TR 3 thyroid nodules detailed above do not meet criteria for follow-up. ACR TI-RADS RECOMMENDATION REFERENCE: Ultrasound-guided fine-needle aspiration, followup ultrasound, no further follow up. * TR1 (0 point) and TR 2 (2 points): No FNA or follow up * TR3 (3 points): FNA if more than or equal to 2.5 cm in maximum dimension, followup ultrasound in 1, 3 and 5 years if 1.5 to 2.4 cm in maximum dimension. * TR4 (4-6 points): FNA if more than or equal to 1.5 cm in maximum dimension, followup ultrasound in 1, 2, 3 and 5 years if 1 to 1.4 cm in maximum dimension. * TR5 (more than or equal to 7 points): FNA if more than or equal to 1 cm in maximum dimension, followup ultrasound every year for 5 years if 0.5 to 0.9 cm in maximum dimension. * TR3, TR4 or TR5 nodules that are below the size threshold for follow up receive no follow up.
== END 2021-05-07 09:22 | disposition home or self-care (01) ==
LOC: HO.US 09:21
PROVIDERS: PCP Nurse Practitioner; Visit Provider Nurse Practitioner
DX: E04.1 Nontoxic single thyroid nodule (principal)
CPT/HCPCS: 76536

== ENCOUNTER → 2021-07-02 08:01 | Outpatient (BNVA) | payer MEDICAID, SELFPAY | PROVIDERS: PCP Nurse Practitioner; Visit Provider Obstetrics & Gynecology | DX: R93.89 Abnormal findings on diagnostic imaging of other specified body structures (principal) | CPT/HCPCS: 99212 ==

== ENCOUNTER → 2021-08-18 11:16 | Outpatient (BNVA) | payer MEDICAID, SELFPAY | PROVIDERS: Visit Provider Obstetrics & Gynecology | DX: D25.9 Leiomyoma of uterus, unspecified (principal); R93.89 Abnormal findings on diagnostic imaging of other specified body structures | CPT/HCPCS: 99212 ==

== ENCOUNTER 2021-09-04 09:49 | Outpatient (REF) | payer MEDICAID, SELFPAY | END 2021-09-04 09:50 | disposition home or self-care (01) | LOC: HO.LAB 09:49 | PROVIDERS: PCP Nurse Practitioner; Visit Provider Obstetrics & Gynecology | DX: R93.89 Abnormal findings on diagnostic imaging of other specified body structures (principal); N93.9 Abnormal uterine and vaginal bleeding, unspecified; Z32.02 Encounter for pregnancy test, result negative | CPT/HCPCS: 58100; 81025; 88305 ==

== ENCOUNTER → 2021-10-06 10:59 | Outpatient (BNVA) | payer MEDICAID, SELFPAY | PROVIDERS: PCP Nurse Practitioner; Visit Provider Obstetrics & Gynecology | DX: R93.89 Abnormal findings on diagnostic imaging of other specified body structures (principal) | CPT/HCPCS: 99212 ==

== ENCOUNTER 2022-08-27 10:48 | Outpatient (REF) | payer OTHER, SELFPAY ==
--- NOTE | ~2022-08-27 | MM_ITS ---
EXAMINATION: MM SCREENING DIGITAL BREAST TOMOSYNTHESIS, BILATERAL CLINICAL INFORMATION: Screening. Asymptomatic. The lifetime risk of breast cancer based on the Tyrer-Cuzick Model is 8%. COMPARISON: Mammography: This study is compared with prior exams dating back to 2018. TECHNIQUE: Digital breast tomosynthesis is performed in both the craniocaudal and mediolateral oblique views along with computer-aided detection (CAD). Synthesized 2D images are generated from the tomosynthesis. FINDINGS: There are scattered areas of fibroglandular density (ACR BI-RADS breast composition Category b). There are no significant masses, abnormal calcifications, or other abnormalities. MM/MM tomosynthesis screening BI IMPRESSION: No mammographic evidence of malignancy. ASSESSMENT: BI-RADS BI-RADS 1 - Negative RECOMMENDATION: Routine annual mammography screening. 1 year F/U This examination should not preclude the clinical evaluation of a suspicious palpable abnormality. This patient's information was entered into a reminder system with a target due date for their next mammogram.
== END 2022-08-27 10:49 | disposition home or self-care (01) ==
LOC: HO.MAMMO 10:48
PROVIDERS: Visit Provider Registered Nurse
DX: Z12.31 Encounter for screening mammogram for malignant neoplasm of breast (principal)
CPT/HCPCS: 77063; 77067

== ENCOUNTER → 2022-08-27 11:00 | Outpatient (BNV) | payer OTHER, SELFPAY | PROVIDERS: Visit Provider Radiology Diagnostic Radiology | DX: Z12.31 Encounter for screening mammogram for malignant neoplasm of breast (principal) | CPT/HCPCS: 77063; 77067 ==

== ENCOUNTER 2022-10-13 10:59 | Outpatient (AMB) | payer OTHER, SELFPAY ==
--- NOTE | 2022-10-13 11:01 | A.OFFVIS_ITS ---
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 No complaints. Last Pap/HPV was negative in 07/12 Last Mammogram was BI-RADS 1 in 09/10 Last Colonoscopy was in 03/15 [facility] Medical History Abnormal uterine bleeding Anemia H/O: hypertension Surgical History History of endometrial ablation Hx of tubal ligation Family History Father Diabetes HTN (hypertension) Mother Asthma Social History Household Members: Spouse Housing: House Alcohol intake: never Patient Tobacco Use Status: Never used Tobacco Second Hand Smoke Exposure: No Female Reproductive History Menstrual Age of Menarche: 10 Duration of menses: <3 days Date of last menstrual period: 04/24/22 control method: permanent sterilization Total pregnancies: 3 Full term: 3 Number of Living Children: 3 Date of last pap smear: 07/03/20 (negative) Date of Mammogram: 08/27/22 Review of Systems Const All systems reviewed & are unremarkable except as noted in HPI and below Card Reports as per HPI Resp Reports as per HPI GI Reports as per HPI and Reports no additional complaints Reports as per HPI Physical Exam Vital Signs: Last Vital Signs BP 134/82 10/13/22 11:03 BMI result Body Mass Index 33.5 Const General: cooperative, healthy appearing and comfortable Chest Chest palpation & inspection: normal inspection of the chest and normal palpation of entire chest wall Breast/axilla inspection: normal inspection of the breasts and normal inspection of the axillae Breast/axilla palpation: normal palpation of the breasts, normal palpation of the axillae and no axillary lymphadenopathy Resp Effort & Inspection: normal respiratory effort Auscultation: clear to auscultation bilaterally Percussion: percussion normal Cardio Palpation: normal PMI Rate: regular rate Rhythm: regular rhythm Heart sounds: no murmurs and no rubs Peripheral pulses: Peripheral pulses 2+ throughout GI Inspection: Yes normal to inspection Palpation (GI): Soft to palpation, nontender, no guarding, not rigid and No hepatosplenomegaly present Percussion: Yes normal to percussion Auscultation: normal bowel sounds Rectal Exam - Female: deferred General: Yes bladder normal to palpation External Female Exam: No lesion Speculum Exam - Vagina: normal appearance of the vagina, normal palpation, normal vaginal discharge and not erythematous Speculum Exam - Cervix: normal appearance of the cervix and normal palpation Bimanual exam- vagina & uterus: normal bimanual exam, normal palpation, uterine size normal, bladder normal to palpation, consistency normal and normal palpation Bimanual Exam- Adnexa, other: normal adnexae, no masses and no tenderness Assessment & Plan Assessment & Plan (1) Well woman exam: Code(s): Z01.419 - Encounter for gynecological examination (general) (routine) without abnormal findings Plan: Co testing not indicated this year. Counseled the patient about the recommended dietary allowance of 1200 mg of Calcium & 600 IU of vitamin D. Instructions given the patient to schedule next screening Mammogram in 09/14 , the patient is up-to-date with her screening colonoscopy . The patient was instructed to perform monthly self-breast exams and schedule annual exam in a year; all questions answered and the patient verbalized understanding. Coding Level of Care Code Est Pt Prev Care 40-64y(14568) Diagnoses Well woman exam Z01.419
[2022-10-13 11:03] VITALS: BP 134/82; BMI 33.5
== END 2022-10-13 11:20 | disposition home or self-care (01) ==
LOC: HO.HWS 10:59
PROVIDERS: Visit Provider Obstetrics & Gynecology
DX: Z01.419 Encounter for gynecological examination (general) (routine) without abnormal findings (principal)
CPT/HCPCS: 99396

== ENCOUNTER → 2022-10-13 10:59 | Outpatient (BNVA) | payer OTHER, SELFPAY | PROVIDERS: Visit Provider Obstetrics & Gynecology ==

== ENCOUNTER 2023-08-04 12:07 | Outpatient (REF) | payer OTHER, SELFPAY ==
[2023-08-04 13:23] LABS: MANUAL DIFF FLAG NO
[2023-08-04 13:42] LABS: Basophils Percent Auto 0.4 % (0-2); Eosinophils Absolute Auto 0.1 X10*3/uL (0.0-0.4); Hematocrit 42.4 % (37.0-47.0); Hemoglobin 13.8 g/dl (12.0-16.0); Imm Gran Abs Auto 0.01 X10*3/uL (0.00-0.03); Imm Gran Pct Auto 0.2 % (0.0-0.4); Lymphocytes Absolute Auto 1.5 X10*3/uL (1.2-4.9); Lymphocytes Percent Auto 30.7 % (20-40); Mean Corpuscular HGB Conc 32.5 g/dl (31.0-35.0); Mean Corpuscular Hemoglobin 29.2 pg (27.0-33.0); Mean Corpuscular Volume 89.8 fL (80.0-98.0); Monocytes Absolute Auto 0.5 X10*3/uL (0.1-1.2); Monocytes Percent Auto 9.4 % (2-11); Neutrophils Absolute Auto 2.8 x10*3/uL (2.0-8.3); Neutrophils Percent Auto 58.3 % (45-73); Platelet Count 293 X10*3/uL (160-400); Red Blood Count 4.72 X10*6/uL (4.20-5.50); Red Cell Distribution Width 13.9 % (11.0-16.0); White Blood Count 4.9 X10*3/uL (4.8-10.8)
[2023-08-04 14:01] LABS: Alanine Aminotransferase 9 U/L (0-31); Alkaline Phosphatase 81 U/L (39-117); Anion Gap 14 (12-20); Aspartate Amino Transferase 17 U/L (5-31); Bilirubin Total 0.5 mg/dL (0.0-1.0); Blood Urea Nitrogen 14 mg/dL (9-16); Calcium 9.1 mg/dL (8.4-10.2); Carbon Dioxide 26 mmol/L (22-29); Chloride 105 mmol/L (96-108); Cholesterol 185 mg/dL (<200); Estimated Glomerular Filt Rate > 60; Glucose Random 88 mg/dL (60-115); HDL Cholesterol 51 mg/dL (>40); LDL Cholesterol Calculated 124 mg/dL (<100); Potassium 3.8 mmol/L (3.3-5.1); Sodium 141 mmol/L (135-145); Total Protein 7.2 g/dL (6.5-8.0); Triglycerides 50 mg/dL (<150)
[2023-08-04 14:20] LABS: Ferritin 17 ng/mL (10-250); Free T4 (Free Thyroxine) 0.82 ng/dL (0.71-1.85); Thyroid Stimulating Hormone 0.12 uIU/mL (0.32-4.0)
== END 2023-08-04 12:08 | disposition home or self-care (01) ==
LOC: HO.HHCL 12:07
PROVIDERS: Visit Provider Registered Nurse
DX: D50.9 Iron deficiency anemia, unspecified (principal); E66.09 Other obesity due to excess calories; Z68.34 Body mass index [BMI] 34.0-34.9, adult; R53.83 Other fatigue
CPT/HCPCS: 36415; 80053; 80061; 82728; 84439; 84443; 85025

== ENCOUNTER 2023-08-19 10:48 | Outpatient (REF) | payer OTHER, SELFPAY ==
--- NOTE | ~2023-08-19 | US_ITS ---
EXAMINATION: US THYROID CLINICAL INFORMATION: Hyperthyroidism. History of nodules. COMPARISON: Thyroid ultrasound 05/07/2021 and 11/18/2015. Ultrasound-guided thyroid biopsy 11/29/2015. TECHNIQUE: Linear transducer grayscale and color Doppler examination with attention to the region of the thyroid. FINDINGS: SIZE: Measurements of the thyroid lobes and nodules are given in sagittal, anteroposterior and transverse dimensions respectively. Right Thyroid Lobe: 5.3 x 2.1 x 2.1 cm, volume 12.3 mL. Previously 6.0 x 2.5 x 2.6 cm, volume 20.4 mL. Parenchyma: The gland echotexture is heterogeneous. Thyroid vascularity is increased. Left Thyroid Lobe: 5.0 x 1.3 x 1.4 cm, volume 4.9 mL. Previously 5.3 x 1.4 x 1.8 cm, volume 7.0 mL. Parenchyma: The gland echotexture is heterogeneous. Thyroid vascularity is normal. Isthmus: 0.3 cm in maximum AP dimension. Previously 0.3 cm. Estimated total number of nodules greater than or equal to 1 cm: 2. Drawing In Hand nodules are described as follows: 1. Location: Right mid pole. Size: 2.4 x 1.7 x 1.8 cm, volume 3.8 mL. Previously: 2.2 x 2.2 x 1.8 cm, volume 4.6 mL. Nodule characteristics: Composition: Solid/almost completely solid (2). Echogenicity: Isoechoic (1). Shape: Not taller than wide (0). Margins: Smooth (0). Echogenic Foci: None (0). ACR TI-RADS total points: 3 Previous: 2 ACR TI-RADS category: 3 Previous: 2 Significant change in size (>/= 20% in 2 dimensions and minimal increase of 2 mm or 50% or greater increase in volume): No Change in features: No Change in ACR TI-RADS risk category: Yes 2. Location: Right upper pole. Size: 1.2 x 0.7 x 0.9 cm, volume 0.4 mL. Previously: 1.1 x 0.9 x 0.7 cm, volume 0.4 mL. Nodule characteristics: Composition: Spongiform (0). ACR TI-RADS total points: 0 Previous: 3 ACR TI-RADS category: 1 Previous: 3 Significant change in size (>/= 20% in 2 dimensions and minimal increase of 2 mm or 50% or greater increase in volume): No Change in features: Yes. Appearing spongiform in the current ultrasound. Change in ACR TI-RADS risk category: Yes 3. Location: Right mid pole. Size: 0.7 x 0.4 x 0.7 cm, volume 0.1 mL. Previously: 0.9 x 0.4 x 0.6 cm, volume 0.1 mL. Nodule characteristics: Composition: Mixed cystic and solid (1). Echogenicity: Isoechoic (1). Shape: Not taller than wide (0). Margins: Ill-defined (0). Echogenic Foci: None (0). ACR TI-RADS total points: 2 Previous: 2 ACR TI-RADS category: 2 Previous: 2 Significant change in size (>/= 20% in 2 dimensions and minimal increase of 2 mm or 50% or greater increase in volume): No Change in features: No Change in ACR TI-RADS risk category: No 4. Location: Right lower pole. Size: 0.6 x 0.6 x 0.8 cm, volume 0.2 mL. Previously: 1.1 x 0.9 x 0.9 cm, volume 0.5 mL. Nodule characteristics: Composition: Solid/almost completely solid (2). Echogenicity: Hypoechoic (2). Shape: Not taller than wide (0). Margins: Ill-defined (0). Echogenic Foci: None (0). ACR TI-RADS total points: 4 Previous: 3 ACR TI-RADS category: 4 Previous: 3 Significant change in size (>/= 20% in 2 dimensions and minimal increase of 2 mm or 50% or greater increase in volume): No Change in features: No Change in ACR TI-RADS risk category: Yes 5. Location: Left upper pole. Size: 0.8 x 0.6 x 0.8 cm, volume 0.2 mL. Previously: 1.0 x 0.6 x 0.4 cm, volume 0.1 mL. Nodule characteristics: Composition: Solid/almost completely solid (2). Echogenicity: Hypoechoic (2). Shape: Not taller than wide (0). Margins: Ill-defined (0). Echogenic Foci: None (0). ACR TI-RADS total points: 4 Previous: 6 ACR TI-RADS category: 4 Previous: 4 Significant change in size (>/= 20% in 2 dimensions and minimal increase of 2 mm or 50% or greater increase in volume): No Change in features: Yes. Previously described echogenic foci are not seen. Change in ACR TI-RADS risk category: Yes NODES: No lymphadenopathy is seen in the tissue surrounding the thyroid gland. US/US thyroid IMPRESSION: Enlarged, heterogeneous thyroid gland with multiple nodules. 1. 2.4 cm TR 3 nodule in the right mid pole. 2. 1.2 cm spongiform nodule in the right upper pole. 3. 0.7 cm TR 2 nodule in the right mid pole. 4. 0.8 cm TR 4 nodule in the right lower pole. 5. Single 0.8 cm TR 4 nodule in the left upper pole. If not previously obtained, FNA of the 2.4 cm TR 3 nodule in the right mid pole is recommended. Additional nodules could be follow-up by imaging in one year. ACR TI-RADS RECOMMENDATION REFERENCE: Ultrasound-guided fine-needle aspiration, follow up ultrasound, no further followup. * TR1 (0 point) and TR2 (2 points): No FNA or followup * TR3 (3 points): FNA if more than or equal to 2.5 cm in maximum dimension, follow up ultrasound in 1, 3 and 5 years if 1.5 to 2.4 cm in maximum dimension. * TR4 (4-6 points): FNA if more than or equal to 1.5 cm in maximum dimension, follow up ultrasound in 1, 2, 3 and 5 years if 1 to 1.4 cm in maximum dimension. * TR5 (more than or equal to 7 points): FNA if more than or equal to 1 cm in maximum dimension, follow up ultrasound every year for 5 years if 0.5 to 0.9 cm in maximum dimension. * TR3, TR4 or TR5 nodules that are below the size threshold for follow up receive no followup.
== END 2023-08-19 10:49 | disposition home or self-care (01) ==
LOC: HO.US 10:48
PROVIDERS: Visit Provider Registered Nurse
DX: E05.90 Thyrotoxicosis, unspecified without thyrotoxic crisis or storm (principal)
CPT/HCPCS: 76536

== ENCOUNTER 2023-09-02 10:59 | Outpatient (REF) | payer OTHER, SELFPAY | END 2023-09-02 11:00 | disposition home or self-care (01) | LOC: HO.MAMMO 10:59 | PROVIDERS: PCP Registered Nurse; Visit Provider Nurse Practitioner | DX: Z12.31 Encounter for screening mammogram for malignant neoplasm of breast (principal); R79.89 Other specified abnormal findings of blood chemistry | CPT/HCPCS: 77063; 77067; 99202 ==

== ENCOUNTER → 2023-09-02 11:00 | Outpatient (BNV) | payer OTHER, SELFPAY | PROVIDERS: PCP Registered Nurse; Visit Provider Radiology Diagnostic Radiology | DX: Z12.31 Encounter for screening mammogram for malignant neoplasm of breast (principal) | CPT/HCPCS: 77063; 77067 ==

== ENCOUNTER 2023-09-02 14:04 | Outpatient (AMB) | payer OTHER, SELFPAY ==
[2023-09-02 14:07] VITALS: BP 150/92; PULSE 83; BMI 35.6
--- NOTE | 2023-09-02 14:07 | MHC.OFFVIS ---
Vital Signs 09/02/23 14:07 Height 5 ft 4 in Weight 207 lb 7.28 oz BMI 35.6 BP 150/92 H Blood Pressure Location Lt brachial Position Sitting Pulse 83 Pulse Source Pulse Oximeter Intake Visit Reasons: Hyperthyroidism-confirmed Intake Note: Patient present today for Hyperthyroidism follow up visit. Critical Care Physician Required: Yes Critical Care Physician Language: Pharmacy General Manager Services: Critical Care Physician Present Critical Care Physician Name: Brennan Alas162 Information Interpreted: non-clinical & clinical Accompanied by: Self / Same As Patient Allergies No Known Allergies [No Known Allergies*] Allergy (Verified 09/02/23 14:13) HPI Comments Details: 52 YO F with who is seen in consultation for suppressed TSH at the request of PCP. Was told she had thyroid problem yrs a go Currently denies any dysphagia or hoarseness of voice. Denies sensation of swelling in the neck or difficulty breathing while lying flat. [Denies] any tenderness in the neck. Denies any palpitations, tremors, weight loss, frequent bowel movements. Denies any ocular complaints, blurred or double vision. Denies hair loss, dry skin, heat or cold intolerance, weight gain, confusion. [Denies] any history of head or neck irradiation. [Denies] any family history of thyroid cancer. Denies use of kelp or seaweed or recent exposures iodinated contrast dye No use of biotin Labs: [facility] Medical History (Updated 09/02/23 @ 14:11 by Tylor Munguia MD) Abnormal TSH H/O: hypertension Abnormal uterine bleeding Anemia Surgical History History of endometrial ablation Hx of tubal ligation Family History Father Diabetes HTN (hypertension) Mother Asthma Social History Household Members: Spouse Housing: House Alcohol intake: never Patient Tobacco Use Status: Never used Tobacco Second Hand Smoke Exposure: No Female Reproductive History Menstrual Age of Menarche: 10 Physical Exam Vital Signs: Last Vital Signs Pulse 83 09/02/23 14:07 BP 150/92 H 09/02/23 14:07 BMI result Body Mass Index 35.6 HEENT reveals absence of lid lag , stare or proptosis or eyebrow loss. Thyroid gland measure 15 gms . No nodules or tenderness palpated. There is no cervical adenopathy palpated. Lungs CTA. Heart S1, S2 Reg R/R -M/R/G. Abdominal exam benign. Skin exam reveals absence of dryness or thyroid dermopathy or vitiligo. Nail exam reveals absence of thyroid acropachy or oncholysis. Neurologic exam reveals 2+ reflexes . Muscle Strength is 5/5 proximally. There are no tremors in upper extremities. Assessment & Plan Assessment & Plan (1) Abnormal TSH: Code(s): R79.89 - Other specified abnormal findings of blood chemistry Category: Medical Plan: This 52-year-old female with a history of a suppressed TSH level. Differential diagnosis includes spurious decrease in TSH versus mild hyperthyroidism from either autoimmune thyroid disease or thyroiditis. Rule out T3 toxicosis Will recheck TSH, free T4 and free T3. Depending upon above may do further workup. If repeat TSH level is normal returned to the care of primary care provider Orders: Orders Triiodothyronine T3 Free Today R79.89 - Other specified abnormal findings of blood chemistry Thyroid Stimulating Hormone Today R79.89 - Other specified abnormal findings of blood chemistry Free T4 (Free Thyroxine) Today R79.89 - Other specified abnormal findings of blood chemistry Coding Level of Care Code New Pt Level 4 (09978) Diagnoses Abnormal TSH R79.89
== END 2023-09-02 14:32 | disposition home or self-care (01) ==
PROVIDERS: Visit Provider Internal Medicine Endocrinology, Diabetes & Metabolism
DX: R79.89 Other specified abnormal findings of blood chemistry (principal)
CPT/HCPCS: 99204

== ENCOUNTER 2023-10-22 12:40 | Outpatient (REF) | payer OTHER, SELFPAY ==
[2023-10-22 14:23] LABS: Free T4 (Free Thyroxine) 0.78 ng/dL (0.71-1.85); Thyroid Stimulating Hormone 0.18 uIU/mL (0.32-4.0)
[2023-10-24 10:27] LABS: Triiodothyronine T3 Free 3.6 pg/mL (2.3-4.2)
== END 2023-10-22 12:41 | disposition home or self-care (01) ==
LOC: HO.LAB 12:40
PROVIDERS: Visit Provider Internal Medicine Endocrinology, Diabetes & Metabolism
DX: R79.89 Other specified abnormal findings of blood chemistry (principal)
CPT/HCPCS: 36415; 84439; 84443; 84481

== ENCOUNTER → 2023-12-02 10:25 | Outpatient (REF) | payer OTHER, SELFPAY ==
--- NOTE | ~2023-12-02 | NM_ITS ---
EXAMINATION: THYROID UPTAKE AND SCAN CLINICAL INFORMATION: Hyperthyroidism. COMPARISON: Thyroid ultrasound done on 08/19/2023. TECHNIQUE: Following the oral administration of 275 microcuries of I-123 sodium iodide, thyroid uptake was performed and expressed as a percentage of the administrated dose. Gamma scintillation camera images of the thyroid in the anterior and right and left anterior oblique views were obtained using a pinhole collimator following the administration of 10.0 mCi Tc-99m pertechnetate. FINDINGS: The uptake is 4.78% at 4 hours and 9.52% at 24 hours (Normal radioiodine uptake at 4 to 6 hours is about 5-15% and at 24 hours is 10% to 30%). The radioiodine uptake is slightly below normal. The radiopertechnetate thyroid scintigram demonstrates the thyroid gland heterogenous with the right lobe larger than the left. There is heterogenous tracer activity present bilaterally associated with multiple photopenic defects with the dominant photopenia seen involving mid part of the right lobe, corresponding to the dominant mixed echogenic nodule measuring 2.37 cm seen on the prior thyroid ultrasound dated 08/19/2023. The trapping function appears normal. NM/NM thyroid w uptake IMPRESSION: 1. The radioiodine uptake at 4 hours and at 24 hours is slightly below normal. 2. Abnormal morphologic appearance of the thyroid gland showing features consistent with multinodular gland, similar to prior thyroid ultrasound done on 08/19/2023. Electronically signed by: Chandrika De Paz MD 01/07/2024 11:20 AM [facility]
== END ==
LOC: HO.NUCMED 10:25
PROVIDERS: PCP Registered Nurse; Visit Provider Internal Medicine Endocrinology, Diabetes & Metabolism
DX: R94.6 Abnormal results of thyroid function studies (principal)
CPT/HCPCS: 78014; A9512; A9516

== ENCOUNTER 2023-12-07 11:41 | Outpatient (AMB) | payer OTHER, SELFPAY ==
--- NOTE | 2023-12-07 11:43 | MHC.OFFVIS ---
Vital Signs 12/07/23 11:44 Height 5 ft 4 in Weight 201 lb 4.513 oz BMI 34.5 BP 130/90 H Blood Pressure Location Lt brachial Position Sitting Pulse 81 Pulse Source Pulse Oximeter Intake Visit Reasons: f/u abnormal TSH-conf Intake Note: Patient present today for abnormal TSH follow up visit. Hide And Skin Processing Worker Required: Yes Hide And Skin Processing Worker Language: Offset Lithographic Press Setter Services: Hide And Skin Processing Worker Present Hide And Skin Processing Worker Name: Nancy Information Interpreted: non-clinical & clinical Accompanied by: Self / Same As Patient Allergies No Known Allergies [No Known Allergies*] Allergy (Verified 12/07/23 11:48) Medication List - Last Reconciled 12/07/23 by Tylor Munguia MD No Known Home Meds HPI Comments Details: 53 YO F with who is seen in consultation for suppressed TSH at the request of PCP. Was told she had thyroid problem yrs a go Currently denies any dysphagia or hoarseness of voice. Denies sensation of swelling in the neck or difficulty breathing while lying flat. [Denies] any tenderness in the neck. Denies any palpitations, tremors, weight loss, frequent bowel movements. Denies any ocular complaints, blurred or double vision. Denies hair loss, dry skin, heat or cold intolerance, weight gain, confusion. [Denies] any history of head or neck irradiation. [Denies] any family history of thyroid cancer. Denies use of kelp or seaweed or recent exposures iodinated contrast dye No use of biotin Labs: [facility] Medical History (Updated 09/02/23 @ 14:11 by Tylor Munguia MD) Abnormal TSH H/O: hypertension Abnormal uterine bleeding Anemia Surgical History History of endometrial ablation Hx of tubal ligation Family History Father Diabetes HTN (hypertension) Mother Asthma Social History Household Members: Spouse Housing: House Alcohol intake: never Patient Tobacco Use Status: Never used Tobacco Second Hand Smoke Exposure: No Female Reproductive History Menstrual Age of Menarche: 10 Physical Exam HEENT reveals absence of lid lag , stare or proptosis or eyebrow loss. Thyroid gland measure 15 gms . No nodules or tenderness palpated. There is no cervical adenopathy palpated. Lungs CTA. Heart S1, S2 Reg R/R -M/R/G. Abdominal exam benign. Skin exam reveals absence of dryness or thyroid dermopathy or vitiligo. Nail exam reveals absence of thyroid acropachy or oncholysis. Neurologic exam reveals 2+ reflexes . Muscle Strength is 5/5 proximally. There are no tremors in upper extremities. Assessment & Plan Assessment & Plan (1) Abnormal TSH: Code(s): R79.89 - Other specified abnormal findings of blood chemistry Category: Medical Plan: This 52-year-old female with a history of a suppressed TSH level. Differential diagnosis includes spurious decrease in TSH versus mild hyperthyroidism from either autoimmune thyroid disease or thyroiditis. Patient had iodine 123 scan but is not read yet and did not go for TRAB be antibodies Will check iodine 123 uptake and scan when available. We will also have patient go for TRAB antibodies and repeat TFTs in 4 wks Orders: Orders Thyroid Stimulating Hormone 4 Weeks R79.89 - Other specified abnormal findings of blood chemistry Free T4 (Free Thyroxine) 4 Weeks R7.89 - Other specified abnormal findings of blood chemistry Coding Level of Care Code Est Pt Level 3 (93253) Diagnoses Abnormal TSH R79.89
[2023-12-07 11:44] VITALS: BP 130/90; PULSE 81; BMI 34.5
== END 2023-12-07 12:06 | disposition home or self-care (01) ==
PROVIDERS: PCP Registered Nurse; Visit Provider Internal Medicine Endocrinology, Diabetes & Metabolism
DX: R79.89 Other specified abnormal findings of blood chemistry (principal)
CPT/HCPCS: 99213

== ENCOUNTER → 2023-12-07 11:41 | Outpatient (BNVA) | payer OTHER, SELFPAY | PROVIDERS: PCP Registered Nurse; Visit Provider Internal Medicine Endocrinology, Diabetes & Metabolism | DX: R79.89 Other specified abnormal findings of blood chemistry (principal) | CPT/HCPCS: 99212 ==

== ENCOUNTER 2024-01-12 11:14 | Outpatient (REF) | payer OTHER, SELFPAY ==
[2024-01-12 12:34] LABS: Free T4 (Free Thyroxine) 0.86 ng/dL (0.71-1.85); Thyroid Stimulating Hormone 0.11 uIU/mL (0.32-4.0)
[2024-01-16 17:13] LABS: Thyrotropin Receptor Antibody <1.00 IU/L (<=2.00)
== END 2024-01-12 11:15 | disposition home or self-care (01) ==
LOC: HO.LAB 11:14
PROVIDERS: PCP Registered Nurse; Visit Provider Internal Medicine Endocrinology, Diabetes & Metabolism
DX: R79.89 Other specified abnormal findings of blood chemistry (principal)
CPT/HCPCS: 36415; 83520; 84439; 84443

== ENCOUNTER 2024-01-18 09:00 | Outpatient (AMB) | payer OTHER, SELFPAY ==
--- NOTE | 2024-01-18 09:06 | MHC.OFFVIS ---
Vital Signs 01/18/24 09:08 Height 5 ft 4 in Weight 195 lb 1.745 oz BMI 33.5 BP 168/96 H Blood Pressure Location Lt brachial Position Sitting Pulse 77 Pulse Source Pulse Oximeter Intake Visit Reasons: f/u abnormal TSH-confirmed Intake Note: Patient present today for abnormal TSH follow up visit. Internet Architect Required: Yes Internet Architect Language: Family And Consumer Education Teacher Services: Internet Architect Present Internet Architect Name: Caitlyn Information Interpreted: non-clinical & clinical Accompanied by: Self / Same As Patient Allergies No Known Allergies [No Known Allergies*] Allergy (Verified 01/18/24 09:10) HPI Comments Details: 53 YO F with who is seen in consultation for suppressed TSH at the request of PCP. Was told she had thyroid problem yrs a go Currently denies any dysphagia or hoarseness of voice. Denies sensation of swelling in the neck or difficulty breathing while lying flat. [Denies] any tenderness in the neck. Denies any palpitations, tremors, weight loss, frequent bowel movements. Denies any ocular complaints, blurred or double vision. Denies hair loss, dry skin, heat or cold intolerance, weight gain, confusion. [Denies] any history of head or neck irradiation. [Denies] any family history of thyroid cancer. Denies use of kelp or seaweed or recent exposures iodinated contrast dye No use of biotin Labs: Ultrasound is consistent with a multinodular goiter. TSH remains suppressed. No sx of hyperthyroidism . No obstructive sx [facility] Medical History (Updated 09/02/23 @ 14:11 by Tylor Munguia MD) Abnormal TSH H/O: hypertension Abnormal uterine bleeding Anemia Surgical History History of endometrial ablation Hx of tubal ligation Family History Father Diabetes HTN (hypertension) Mother Asthma Social History Household Members: Spouse Housing: House Alcohol intake: never Patient Tobacco Use Status: Never used Tobacco Second Hand Smoke Exposure: No Female Reproductive History Menstrual Age of Menarche: 10 Physical Exam Const Other: Thyroid gland is normal size weighs about 15 g . There are no nodules palpated Assessment & Plan Assessment & Plan (1) Abnormal TSH: Code(s): R79.89 - Other specified abnormal findings of blood chemistry Category: Medical Plan: This 52-year-old female with a history of a suppressed TSH level due to a toxic multinodular goiter. Will have patient follow up with Dr. Vidal an expert in thyroid ultrasound and FNA to see if any nodules need FNA and to compare nodules on ultrasound with iodine 123 scan. Once this is done, discussion of options could be taken with the patient including the use of anti-thyroid medication versus surgery versus radioactive therapy. This can be done by Dr. Vidal after she completes the evaluation of the nodules Coding Level of Care Code Est Pt Level 3 (78049) Diagnoses Abnormal TSH R79.89
[2024-01-18 09:08] VITALS: BP 168/96; PULSE 77; BMI 33.5
== END 2024-01-18 09:21 | disposition home or self-care (01) ==
PROVIDERS: PCP Registered Nurse; Visit Provider Internal Medicine Endocrinology, Diabetes & Metabolism
DX: R79.89 Other specified abnormal findings of blood chemistry (principal)
CPT/HCPCS: 99213

== ENCOUNTER → 2024-01-18 09:00 | Outpatient (BNVA) | payer OTHER, SELFPAY | PROVIDERS: PCP Registered Nurse; Visit Provider Internal Medicine Endocrinology, Diabetes & Metabolism | DX: R79.89 Other specified abnormal findings of blood chemistry (principal) | CPT/HCPCS: 99212 ==

== ENCOUNTER 2024-02-08 09:09 | Outpatient (AMB) | payer OTHER, SELFPAY ==
--- NOTE | 2024-02-08 09:10 | A.OFFVIS_ITS ---
Vital Signs 02/08/24 09:11 Height 5 ft 4 in Weight 195 lb BMI 33.5 BP 138/90 H Intake Visit Reasons: RESPIRATORY PRACTITIONER annual exam Programmer Analyst Required: Yes Programmer Analyst Language: Director Of Admissions Services: Programmer Analyst Present (in person) Programmer Analyst Name: Lenka ROTHMAN Information Interpreted: non-clinical & clinical Product Strategy Director: Product Strategy Director Present (Lenka ROTHMAN) Accompanied by: Self / Same As Patient Allergies No Known Allergies [No Known Allergies*] Allergy (Verified 02/08/24 09:16) Post menopausal: Yes HPI Comments Details: Presenting for annual exam. No complaints. Last Pap/HPVWas negative in 07/12 Last Mammogram was BI-RADS 1 in 09/14 Last Colonoscopy was in 03/15 , therecommendation was to repeat in 5 years [facility] Medical History Abnormal TSH H/O: hypertension Abnormal uterine bleeding Anemia Surgical History History of endometrial ablation Hx of tubal ligation Family History Father Diabetes HTN (hypertension) Mother Asthma Social History Household Members: Spouse Housing: House Alcohol intake: never Patient Tobacco Use Status: Never used Tobacco Second Hand Smoke Exposure: No Female Reproductive History Menstrual Age of Menarche: 10 Date of last pap smear: 07/03/20 Date of Mammogram: 09/02/23 Review of Systems Const All systems reviewed & are unremarkable except as noted in HPI and below Card Reports as per HPI Resp Reports as per HPI GI Reports as per HPI and Reports no additional complaints Reports as per HPI Physical Exam Vital Signs: Last Vital Signs BP 138/90 H 02/08/24 09:11 BMI result Body Mass Index 33.5 Const General: cooperative, healthy appearing and comfortable Chest Chest palpation & inspection: normal inspection of the chest and normal palpation of entire chest wall Breast/axilla inspection: normal inspection of the breasts and normal inspection of the axillae Breast/axilla palpation: normal palpation of the breasts, normal palpation of the axillae and no axillary lymphadenopathy Resp Effort & Inspection: normal respiratory effort Auscultation: clear to auscultation bilaterally Percussion: percussion normal Cardio Palpation: normal PMI Rate: regular rate Rhythm: regular rhythm Heart sounds: no murmurs and no rubs Peripheral pulses: Peripheral pulses 2+ throughout GI Inspection: Yes normal to inspection Palpation (GI): Soft to palpation, nontender, no guarding, not rigid and No hepatosplenomegaly present Percussion: Yes normal to percussion Auscultation: normal bowel sounds Rectal Exam - Female: deferred General: Yes bladder normal to palpation External Female Exam: No lesion Speculum Exam - Vagina: normal appearance of the vagina, normal palpation, normal vaginal discharge and not erythematous Speculum Exam - Cervix: normal appearance of the cervix and normal palpation Bimanual exam- vagina & uterus: normal bimanual exam, normal palpation, uterine size normal, bladder normal to palpation, consistency normal and normal palpation Bimanual Exam- Adnexa, other: normal adnexae, no masses and no tenderness Assessment & Plan Assessment & Plan (1) Well woman exam: Code(s): Z01.419 - Encounter for gynecological examination (general) (routine) without abnormal findings Category: Medical Plan: Co testing not indicated this year. Counseled the patient about the recommended dietary allowance of 1200 mg of Calcium & 600 IU of vitamin D. Instructions given the patient to schedule next screening Mammogram in 09/15. The patient was referred to GI for screening colonoscopy . The patient was instructed to perform monthly self-breast exams and schedule annual exam in a year. All questions answered and the patient verbalized understanding. Coding Level of Care Code Est Pt Prev Care 40-64y(93566) Diagnoses Well woman exam Z01.419
[2024-02-08 09:11] VITALS: BP 138/90; BMI 33.5
== END 2024-02-08 09:50 | disposition home or self-care (01) ==
PROVIDERS: Visit Provider Obstetrics & Gynecology
DX: Z01.419 Encounter for gynecological examination (general) (routine) without abnormal findings (principal)
CPT/HCPCS: 99396; 99459

== ENCOUNTER 2024-02-29 08:59 | Outpatient (AMB) | payer OTHER, SELFPAY ==
--- NOTE | 2024-02-29 09:03 | A.OFFVIS_ITS ---
Vital Signs 02/29/24 09:14 02/29/24 09:42 Height 5 ft 4 in Weight 197 lb 1.492 oz BMI 33.8 BP 160/100 H 145/100 H Blood Pressure Location Lt brachial Lt brachial Position Sitting Sitting Pulse 75 Pulse Source Pulse Oximeter Intake Visit Reasons: MNG Intake Note: Patient present today for MNG. Molding Supervisor Required: Yes Molding Supervisor Language: Defense Analyst Services: Molding Supervisor Present Molding Supervisor Name: Lucinda [phone] Information Interpreted: non-clinical & clinical Accompanied by: Self / Same As Patient Allergies No Known Allergies [No Known Allergies*] Allergy (Verified 02/29/24 09:18) Medication List - Last Reconciled 02/29/24 by Violette Vidal MD No Known Home Meds HPI Comments Details: 53 YO F with who is seen for follow up of subclinical hyperthyroidism and multinodular goiter. HPI Has had thyroid nodules at least dating back to 2015. Apparently she did have FNA of the dominant right mid lobe 2.4 cm nodule back in November 2015 per the ultrasound report, however I do not have these results. So unclear if it was benign at that time. Thyroid ultrasound from April 2021, showed stable size of the dominant right mid lobe nodule which is mixed cystic solid, commented on as isoechoic with no other suspicious features, TR 2 nodule. Another right superior 1.1 cm new nodule TR 3 category. The subcentimeter right mid lobe nodule. A 1.1 cm right inferior TR 4 category nodule noted. A left superior solid, isoechoic nodule with echogenic foci, TR 4 category which had increased in size from subcentimeter in 2016 to 1 cm in size. Thyroid ultrasound from July 2023 showed stable size of the right midpole nodule which is when I reviewed the images mixed cystic solid, hypoechoic, TR 3 ca tegory. Right upper pole spongiform nodule remains stable in size. Right midpole subcentimeter nodule also stable in size. Right lower subcentimeter nodule TR 4 category also stable in size. The left superior TR 4 category nodule that was previously measured as 1 cm now measuring subcentimeter in size. Previously had normal thyroid function testing prior to summer. Since July 2023 she has been noted to have low TSH levels ranging anywhere from 0.11- 0.18. Normal free T4. Thyrotropin receptor antibody negative. Most recent labs done 01/12/2024 showed TSH low of 0.11, normal free T4 of 0.86. Thyroid uptake and scan from 12/02/2023, I reviewed the images myself which shows no increased uptake, however heterogenous areas of uptake noted with photopenic areas in the right upper pole, as well as the left upper pole and left lateral inferior pole. Currently denies any dysphagia or hoarseness of voice. Denies sensation of swelling in the neck or difficulty breathing while lying flat. [Denies] any tenderness in the neck. Does report intermittent palpitations. Denies any , tremors, weight loss, frequent bowel movements. Denies any ocular complaints, blurred or double vision. Denies hair loss, dry skin, heat or cold intolerance, weight gain, confusion. [Denies] any history of head or neck irradiation. [Denies] any family history of thyroid cancer or thyroid disease. Denies use of kelp or seaweed or recent exposures iodinated contrast dye No use of biotin Physical exam General: sitting comfortably in no acute distress HEENT: normocephalic/atraumatic, EOM intact, moist oral mucosa Neck: supple, palpable 2 cm right-sided nodule Cardiac: normal heart sounds Pulm: normal breath sounds B/L, no added breath sounds Abd: not distended, no tenderness Extremities: no edema, no signs of myxedema Neuro: AAO x3, Speech: normal, no facial droop, moving all 4 extremities Laboratory Tests 01/15/20 04/23/20 08/04/23 17:43 09:42 12:08 TSH 0.55 0.58 0.12 L Free T4 0.82 Free T3 TSH Receptor Ab 10/22/23 01/12/24 12:47 11:31 TSH 0.18 L 0.11 L Free T4 0.78 0.86 Free T3 3.6 TSH Receptor Ab <1.00 THYROID UPTAKE AND SCAN 12/02/23 CLINICAL INFORMATION: Hyperthyroidism. COMPARISON: Thyroid ultrasound done on 08/19/2023. TECHNIQUE: Following the oral administration of 275 microcuries of I-123 sodium iodide, thyroid uptake was performed and expressed as a percentage of the administrated dose. Gamma scintillation camera images of the thyroid in the anterior and right and left anterior oblique views were obtained using a pinhole collimator following the administration of 10.0 mCi Tc-99m pertechnetate. FINDINGS: The uptake is 4.78% at 4 hours and 9.52% at 24 hours (Normal radioiodine uptake at 4 to 6 hours is about 5-15% and at 24 hours is 10% to 30%). The radioiodine uptake is slightly below normal. The radiopertechnetate thyroid scintigram demonstrates the thyroid gland heterogenous with the right lobe larger than the left. There is heterogenous tracer activity present bilaterally associated with multiple photopenic defects with the dominant photopenia seen involving mid part of the right lobe, corresponding to the dominant mixed echogenic nodule measuring 2.37 cm seen on the prior thyroid ultrasound dated 08/19/2023. The trapping function appears normal. NM/NM thyroid w uptake IMPRESSION: 1. The radioiodine uptake at 4 hours and at 24 hours is slightly below normal. 2. Abnormal morphologic appearance of the thyroid gland showing features consistent with multinodular gland, similar to prior thyroid ultrasound done on 08/19/2023. Electronically signed by: Chandrika De Paz MD 01/07/2024 11:20 AM [facility] [place] US THYROID 08/19/23 CLINICAL INFORMATION: Hyperthyroidism. History of nodules. COMPARISON: Thyroid ultrasound 05/07/2021 and 11/18/2015. Ultrasound-guided thyroid biopsy 11/29/2015. TECHNIQUE: Linear transducer grayscale and color Doppler examination with attention to the region of the thyroid. FINDINGS: SIZE: Measurements of the thyroid lobes and nodules are given in sagittal, anteroposterior and transverse dimensions respectively. Right Thyroid Lobe: 5.3 x 2.1 x 2.1 cm, volume 12.3 mL. Previously 6.0 x 2.5 x 2.6 cm, volume 20.4 mL. Parenchyma: The gland echotexture is heterogeneous. Thyroid vascularity is increased. Left Thyroid Lobe: 5.0 x 1.3 x 1.4 cm, volume 4.9 mL. Previously 5.3 x 1.4 x 1.8 cm, volume 7.0 mL. Parenchyma: The gland echotexture is heterogeneous. Thyroid vascularity is normal. Isthmus: 0.3 cm in maximum AP dimension. Previously 0.3 cm. Estimated total number of nodules greater than or equal to 1 cm: 2. Strainer Mill Operator nodules are described as follows: 1. Location: Right mid pole. Size: 2.4 x 1.7 x 1.8 cm, volume 3.8 mL. Previously: 2.2 x 2.2 x 1.8 cm, volume 4.6 mL. Nodule characteristics: Composition: Solid/almost completely solid (2). Echogenicity: Isoechoic (1). Shape: Not taller than wide (0). Margins: Smooth (0). Echogenic Foci: None (0). ACR TI-RADS total points: 3 Previous: 2 ACR TI-RADS category: 3 Previous: 2 Significant change in size (>/= 20% in 2 dimensions and minimal increase of 2 mm or 50% or greater increase in volume): No Change in features: No Change in ACR TI-RADS risk category: Yes 2. Location: Right upper pole. Size: 1.2 x 0.7 x 0.9 cm, volume 0.4 mL. Previously: 1.1 x 0.9 x 0.7 cm, volume 0.4 mL. Nodule characteristics: Composition: Spongiform (0). ACR TI-RADS total points: 0 Previous: 3 ACR TI-RADS category: 1 Previous: 3 Significant change in size (>/= 20% in 2 dimensions and minimal increase of 2 mm or 50% or greater increase in volume): No Change in features: Yes. Appearing spongiform in the current ultrasound. Change in ACR TI-RADS risk category: Yes 3. Location: Right mid pole. Size: 0.7 x 0.4 x 0.7 cm, volume 0.1 mL. Previously: 0.9 x 0.4 x 0.6 cm, volume 0.1 mL. Nodule characteristics: Composition: Mixed cystic and solid (1). Echogenicity: Isoechoic (1). Shape: Not taller than wide (0). Margins: Ill-defined (0). Echogenic Foci: None (0). ACR TI-RADS total points: 2 Previous: 2 ACR TI-RADS category: 2 Previous: 2 Significant change in size (>/= 20% in 2 dimensions and minimal increase of 2 mm or 50% or greater increase in volume): No Change in features: No Change in ACR TI-RADS risk category: No 4. Location: Right lower pole. Size: 0.6 x 0.6 x 0.8 cm, volume 0.2 mL. Previously: 1.1 x 0.9 x 0.9 cm, volume 0.5 mL. Nodule characteristics: Composition: Solid/almost completely solid (2). Echogenicity: Hypoechoic (2). Shape: Not taller than wide (0). Margins: Ill-defined (0). Echogenic Foci: None (0). ACR TI-RADS total points: 4 Previous: 3 ACR TI-RADS category: 4 Previous: 3 Significant change in size (>/= 20% in 2 dimensions and minimal increase of 2 mm or 50% or greater increase in volume): No Change in features: No Change in ACR TI-RADS risk category: Yes 5. Location: Left upper pole. Size: 0.8 x 0.6 x 0.8 cm, volume 0.2 mL. Previously: 1.0 x 0.6 x 0.4 cm, volume 0.1 mL. Nodule characteristics: Composition: Solid/almost completely solid (2). Echogenicity: Hypoechoic (2). Shape: Not taller than wide (0). Margins: Ill-defined (0). Echogenic Foci: None (0). ACR TI-RADS total points: 4 Previous: 6 ACR TI-RADS category: 4 Previous: 4 Significant change in size (>/= 20% in 2 dimensions and minimal increase of 2 mm or 50% or greater increase in volume): No Change in features: Yes. Previously described echogenic foci are not seen. Change in ACR TI-RADS risk category: Yes NODES: No lymphadenopathy is seen in the tissue surrounding the thyroid gland. US/US thyroid IMPRESSION: Enlarged, heterogeneous thyroid gland with multiple nodules. 1. 2.4 cm TR 3 nodule in the right mid pole. 2. 1.2 cm spongiform nodule in the right upper pole. 3. 0.7 cm TR 2 nodule in the right mid pole. 4. 0.8 cm TR 4 nodule in the right lower pole. 5. Single 0.8 cm TR 4 nodule in the left upper pole. If not previously obtained, FNA of the 2.4 cm TR 3 nodule in the right mid pole is recommended. Additional nodules could be follow-up by imaging in one year. US THYROID 04/2021 CLINICAL INFORMATION: Nontoxic single thyroid nodule. COMPARISON: Ultrasound soft tissue head/neck thyroid dated 11/18/2015. TECHNIQUE: Linear transducer grayscale and color Doppler examination with attention to the region of the thyroid. FINDINGS: SIZE: Measurements of the thyroid lobes and nodules are given in sagittal, anteroposterior and transverse dimensions respectively. Right Thyroid Lobe: 6.0 x 2.5 x 2.6 cm, volume 20.4 mL. Previously 5.8 x 2.8 x 2.8 cm, volume 24.0 mL. Parenchyma: The gland echotexture is homogeneous. Thyroid vascularity is increased. Left Thyroid Lobe: 5.3 x 1.4 x 1.8 cm, volume 7.0 mL. Previously 4.5 x 1.5 x 1.6 cm, volume 5.8 mL. Parenchyma: The gland echotexture is homogeneous. Thyroid vascularity is normal. Isthmus: 0.3 cm in maximum AP dimension. Previously 0.3 cm. Estimated total number of nodules greater than or equal to 1 cm: 4. Strainer Mill Operator nodules are described as follows: 1. Location: Right mid. Size: 2.2 x 2.2 x 1.8 cm, volume 4.63 mL. Previously: 2.7 x 2.5 x 2.6 cm, volume 9.12 mL. Nodule characteristics: Composition: Mixed cystic and solid (1). Echogenicity: Isoechoic (1). Shape: Not taller than wide (0). Margins: Smooth (0). Echogenic Foci: None (0). ACR TI-RADS total points: 2 ACR TI-RADS category: 2 Significant change in size (>/= 20% in 2 dimensions and minimal increase of 2 mm or 50% or greater increase in volume): No Change in features: No Change in ACR TI-RADS risk category: No 2. Location: Right superior. Size: 1.1 x 0.9 x 0.7 cm, volume 0.40 mL. Previously: Not documented on the prior study. Nodule characteristics: Composition: Mixed cystic and solid (1). Echogenicity: Isoechoic (1). Shape: Not taller than wide (0). Margins: Smooth (0). Echogenic Foci: None (0). ACR TI-RADS total points: 3 ACR TI-RADS category: 3 3. Location: Right mid. Size: 0.9 x 0.4 x 0.6 cm, volume 0.11 mL. Previously: Not documented on the prior study. Nodule characteristics: Composition: Mixed cystic and solid (1). Echogenicity: Isoechoic (1). Shape: Not taller than wide (0). Margins: Smooth (0). Echogenic Foci: None (0). ACR TI-RADS total points: 2 ACR TI-RADS category: 2 4. Location: Right inferior. Size: 1.1 x 0.9 x 0.9 cm, volume 0.49 mL. Previously: Not documented on the prior study. Nodule characteristics: Composition: Mixed cystic and solid (1). Echogenicity: Isoechoic (1). Shape: Not taller than wide (0). Margins: Smooth (0). Echogenic Foci: Punctate echogenic foci (3). ACR TI-RADS total points: 5 ACR TI-RADS category: 4 5. Location: Left superior. Size: 1.0 x 0.6 x 0.4 cm, volume 0.12 mL. Previously: 0.4 x 0.3 x 0.4 cm, volume 0.03 mL. Nodule characteristics: Composition: Solid (2). Echogenicity: Isoechoic (1). Shape: Not taller than wide (0). Margins: Smooth (0). Echogenic Foci: Punctate echogenic foci (3). ACR TI-RADS total points: 6 ACR TI-RADS category: 4 Significant change in size (>/= 20% in 2 dimensions and minimal increase of 2 mm or 50% or greater increase in volume): Yes Change in features: Yes, punctate echogenic foci were not previously seen Change in ACR TI-RADS risk category: Yes NODES: No lymphadenopathy is seen in the tissue surrounding the thyroid gland. US/US thyroid IMPRESSION: A 1.0 cm left TR 4 thyroid nodule is increased in size from prior and demonstrates new punctate echogenic foci. Recommend one-year follow-up thyroid ultrasound. A 1.1 cm TR 4 right inferior thyroid nodule is new from prior. Recommend one-year follow-up thyroid ultrasound. The remainder of TR 2 and TR 3 thyroid nodules detailed above do not meet criteria for follow-up. [facility] Medical History (Updated 02/29/24 @ 09:20 by Violette Vidal MD) Toxic multinodul goiter Subclinical hyperthyroidism Abnormal TSH H/O: hypertension Abnormal uterine bleeding Anemia Surgical History History of endometrial ablation Hx of tubal ligation Family History Father Diabetes HTN (hypertension) Mother Asthma Social History Household Members: Spouse Housing: House Alcohol intake: never Patient Tobacco Use Status: Never used Tobacco Second Hand Smoke Exposure: No Female Reproductive History Menstrual Age of Menarche: 10 Assessment & Plan Assessment & Plan (1) Subclinical hyperthyroidism: Code(s): E05.90 - Thyrotoxicosis, unspecified without thyrotoxic crisis or storm Category: Medical Plan: 53-year-old female who is here today for follow up of subclinical hyperthyroidism and multinodular goiter. Has had thyroid nodules at least dating back to 2015. Apparently she did have FNA of the dominant right mid lobe 2.4 cm nodule back in November 2015 per the ultrasound report, however I do not have these results. So unclear if it was benign at that time. Thyroid ultrasound from April 2021, showed stable size of the dominant right mid lobe nodule which is mixed cystic solid, commented on as isoechoic with no other suspicious features, TR 2 nodule. Another right superior 1.1 cm new nodule TR 3 category. The subcentimeter right mid lobe nodule. A 1.1 cm right inferior TR 4 category nodule noted. A left superior solid, isoechoic nodule with echogenic foci, TR 4 category which had increased in size from subcentimeter in 2016 to 1 cm in size. Thyroid ultrasound from July 2023 showed stable size of the right midpole nodule which is when I reviewed the images mixed cystic solid, hypoechoic, TR 3 category. Right upper pole spongiform nodule remains stable in size. Right midpole subcentimeter nodule also stable in size. Right lower subcentimeter nodule TR 4 category also stable in size. The left superior TR 4 category nodule that was previously measured as 1 cm now measuring subcentimeter in size. Previously had normal thyroid function testing prior to summer. Since July 2023 she has been noted to have low TSH levels ranging anywhere from 0.11- 0.18. Normal free T4. Thyrotropin receptor antibody negative. Most recent l abs done 01/12/2024 showed TSH low of 0.11, normal free T4 of 0.86. Thyroid uptake and scan from 12/02/2023, I reviewed the images myself which shows no increased uptake, however heterogenous areas of uptake noted with photopenic areas in the right upper pole, as well as the left upper pole and left lateral inferior pole. As far as the subclinical hyperthyroidism is concerned, given that she is less than 65 years of age with no history of heart disease or osteoporosis, with a TSH being greater than 0.1 at this time, she does not meet treatment criteria for subclinical hyperthyroidism and I will plan to repeat her labs in 6 months around July 2024. Given her uptake and scan showed photopenic areas which are collaborating with some of her nodules including the right mid lobe dominant 2.4 cm nodule that has even though he has been biopsied before in 2016 and has remained stable in size since I do not have those biopsy results in it meets criteria for FNA, I would like to repeat biopsy of this nodule. I explained that it is common to have thyroid nodules. About 95% of the time these nodules are benign. However if the nodule is > 1 cm in size or suspicious on ultrasound then a fine need aspiration biopsy is recommended. We discussed that a FNAB involves 4-5 passes with a small gauge needle and material obtained is sent off for cytology.If the cytopathology is benign then the nodule will be followed annually with repeat ultrasounds. However if it is suspicious or malignant, we will need to discuss further management. Indeterminate cytology can be further investigated with repeat FNA, genetic testing or empiric lobectomy. Malignant cytology is managed with either lobectomy or total thyroidectomy. We discussed briefly that thyroid cancer is, in most patients, an indolent disease that does not affect mortality. We will arrange for FNA of the right mid lobe 2.4 cm thyroid nodule at next available opening and patient will follow up with me in clinic thereafter for results and further decision making. Plan: - Scheduled for FNA of the right mid 2.4 cm thyroid nodule and a follow up 2 weeks after to discuss results -Repeat TSH, free t4 and total T3 in July 2023 (2) Toxic multinodul goiter: Code(s): E05.20 - Thyrotoxicosis with toxic multinodular goiter without thyrotoxic crisis or storm Category: Medical Plan: see above Plan I spent 30 minutes in reviewing the record, seeing the patient and documenting in the medical record. Orders: Orders US biopsy thyroid Today E05.20 - Thyrotoxicosis with toxic multinodular goiter without thyrotoxic crisis or storm Coding Level of Care Code Est Pt Level 4 (90720) Diagnoses Subclinical hyperthyroidism E05.90 Toxic multinodul goiter E05.20 Time Spent (min) 30
[2024-02-29 09:14] VITALS: BP 160/100; PULSE 75; BMI 33.8
[2024-02-29 09:42] VITALS: BP 145/100
== END 2024-02-29 09:48 | disposition home or self-care (01) ==
PROVIDERS: PCP Registered Nurse; Visit Provider Student in an Organized Health Care Education/Training Program
DX: E05.90 Thyrotoxicosis, unspecified without thyrotoxic crisis or storm (principal); E05.20 Thyrotoxicosis with toxic multinodular goiter without thyrotoxic crisis or storm
CPT/HCPCS: 99214

== ENCOUNTER → 2024-02-29 08:59 | Outpatient (BNVA) | payer OTHER, SELFPAY | PROVIDERS: PCP Registered Nurse; Visit Provider Student in an Organized Health Care Education/Training Program | DX: E05.20 Thyrotoxicosis with toxic multinodular goiter without thyrotoxic crisis or storm (principal) | CPT/HCPCS: 99212 ==

== ENCOUNTER 2024-05-03 09:53 | Outpatient (REF) | payer OTHER, SELFPAY ==
--- NOTE | 2024-05-03 10:34 | PM.PROC ---
Brief Operative Note Date of procedure: 05/03/24 Pre-op diagnosis: right mid 2.4 cm thyroid nodule FNA biopsy Post-op diagnosis: same Procedure: THYROID FINE NEEDLE ASPIRATION PROCEDURE NOTE ? PROCEDURE PERFORMED: Ultrasound-guided FNA of thyroid nodule ? OPERATORS: Dr. Violette Vidal ? INDICATION: right mid 2.4 cm thyroid nodule ; FNA performed to assess for malignancy ? DESCRIPTION OF PROCEDURE: The indications for FNA (to assess for malignancy) were reviewed with the patient in detail. Potential complications (e.g., bleeding, infection, damage to local structures, absence of clear diagnosis after FNA) were reviewed. Alternatives to FNA including conservative observation or surgery were described. The patient understood and agreed to proceed. This was documented by the signing of the written informed consent form. A time-out was performed to confirm the patient's identity and the site of planned FNA. The nodule of interest was identified using ultrasound (14 MHz linear array probe). The site of FNA was then draped in the usual fashion and carefully cleaned and prepared using alcohol swabs. The skin at the previously-identified site of needle insertion was iced and sprayed with numbing spray. Under ultrasound guidance, _5_ passes were performed using a 1.5-inch, 25-gauge needle, and sample was obtained via capillary action. The needle tip was clearly visualized to be within the nodule at the time of sampling for _4_ of 5__ passes The patient tolerated the procedure well. There were no immediate complications. A small adhesive bandage was applied, and the patient was advised to take acetaminophen (rather than NSAIDs) for any discomfort and to report any signs of inflammation/infection or marked swelling. IMPRESSION: Technically successful ultrasound-guided fine needle aspiration of right mid 2.4 cm thyroid nodule. PLAN: The patient was advised that I will provide follow-up regarding the cytology result and any subsequent plans. Violette Vidal MD Endocrinology Attending Condition: stable Disposition: same day
--- OUTSIDE RECORDS SUMMARY | 2024-05-03 11:03 | XMS_ITS | Encounter Summary ---
Author Organization [employer] Address [address] [place] [address] [address] [place] [address] Care Team Providers Care Composite Mechanic Name Role Phone [facility] Primary Care Provider [phone] Encounter Details Date Type Department Care Team (Late st Contact Info) Description 11/23/2022 Abstract [facility] [address] [place] [id number] Kiley Arriaga Social History Tobacco Use Types Packs/Day Years Used Date Smoking Tobacco: Never Assessed Comments Unknown Sex and Gender Information Value Date Recorded Sex Assigned at Female 12/22/2021 10:20 AM EDT Legal Sex Female 10:20 AM EDT Gender Identity Female 12/22/2021 10:20 AM EDT Sexual Orientation Choose not to disclose 2021 10:20 AM EDT documented as of this encounter Plan of Treatment Upcoming Encounters Date Type Department Care Team (Late st Contact Info) Description 05/15/2024 11:15 AM EDT Office Visit [facility] [address] [place] [id number] [employer] [address] [place] [address] documented as of this encounter Procedures Procedure Name Priority Date/Time Associated Diagnosis Comments PAP/HPV Routine 07/02/2020 PAP/HPV Routine 04/17/2020 documented in this encounter Results * Pap Smear (07/02/2020) Pap Negative for intraephithelial lesion or malignancy Negative for intraephithelial lesion or malignancy, Other HPV Undetected us Historical Provider HEALTH MAINTENANCE Final Result * Hm Pap Smear (04/17/2020) Pap Other Negative for intraephithelial lesion or malignancy, Other HPV Undetected Narrative Kiley Arriaga - 04/17/2020 Unsatisfactory us Historical Provider HEALTH MAINTENANCE Final Result documented in this encounter Visit Diagnoses Not on filedocumented in this encounter Care Teams Composite Mechanic Relationship Specialty Start Date End Date Nikole Luna FNP [address] [place] [id number] PCP - General Family Medicine 10/16/21 documented as of this encounter
--- OUTSIDE RECORDS SUMMARY | 2024-05-03 11:03 | XMS_ITS | Encounter Summary ---
Author Organization [employer] Address [address] [facility] 7t [place] [address] Care Team Providers Care It Consultant Name Role Phone [place] [facility] Primary Care Provider [phone] Reason for Visit * Reason Onset Date Comments Labs 05/02/2024 I informed the p atient, that an order for MMR titers was sent to the [facility] lab. She stated that she would have them done on 05/03/24. Encounter Details Date Type Department Care Team ([facility] st Contact Info) Description 05/02/2024 Telephone [facility] MEDICINE [address] [place], [place] [phone] [facility] [address] [place], [place] [phone] Labs (I informed the patient, that an order for MMR titers was sent to the [facility] lab. She stated that she would have them done on 05/03/24.) Social History Tobacco Use Types Packs/Day Years Used Date Smoking Tobacco: Never Smokeless Tobacco: Never Alcohol Use Standard Drinks/Week Comments Never 0 (1 standard drink = 0.6 oz pur e alcohol) Alcohol Answer Date Recorded Frequency of Alcohol Consumption Not on file 07/28/2023 Average Number of Drinks Not on file 024 Frequency of Binge Drinking Not on file 06/2023 Score 0 07/28/2023 Depression Answer Date Recorded Patient Health Questionnaire-9 Score 0 03/31/2024 Patient Health Questionnaire-9 Score 0 03/31/2024 Last PHQ-9: Questionnaire Data Not on file 0 03/31/2024 Housing Stability Answer Date Recorded What is your housing situation today? I have willy briceño 06/30/[address] you li ve. Do you have problems with any of the following? None of the above 06/30/2023 Food Insecurity Answer Date Recorded Within the past 12 months, y ou worried that your food would run out before you got money to buy more: Never True 06/30/2023 Within the past 12 months,th e food you bought just didn't last and you didn't have enough money to get more: Never True 09/2023 Transportation Answer Date Recorded In the past 12 months, has l ack of transportation kept you from medical appts, meetings, work or from getting things needed for daily living? No 06/30/2023 Utilities Answer Date Recorded In the past 12 months, has t he electric, gas, oil or water company threatened to shut off services in your home? No 06/30/2023 Depression Answer Date Recorded Patient Health Questionnaire-2 Score 0 03/31/2024 Internet Access Answer Date Recorded Internet Access Q1 Yes 03/20/2024 Internet Access Q2 Not on file 03/20/2024 Comments Unknown Sex and Gender Information Value Date Recorded Sex Assigned at Female 12/22/2021 10:20 AM EDT Legal Sex Female 10:20 AM EDT Gender Identity Female 12/22/2021 10:20 AM EDT Sexual Orientation Choose not to disclose 2021 10:20 AM EDT documented as of this encounter Miscellaneous Notes * Telephone Encounter - Princess Mejias MA - 05/02/2024 10:16 AM EDT I informed the patient, that an order for MMR titers was sent to the [facility] lab. She stated that she would have them done on 05/03/24. documented in this encounter Plan of Treatment Upcoming Encounters Date Type Department Care Team (Late st Contact Info) Description 05/15/2024 11:15 AM EDT Office Visit [facility] MED[facility]INE [address] [place] [address] [place], Nikole, [facility] [address] [place] [address] documented as of this encounter Visit Diagnoses Not on filedocumented in this encounter Additional Health Concerns Assessment Noted Time PHQ-9 Depression Total Score: 0 03/31/19 25 10:15 AM EST documented as of this encounter Care Teams It Consultant Relationship Specialty Start Date End Date Nikole Luna FNP [address] [place] [address] PCP - General Family Medicine 10/16/21 documented as of this encounter
--- OUTSIDE RECORDS SUMMARY | 2024-05-03 11:03 | XMS_ITS | Clinical Summary ---
Author Organization [employer] Address [address] [facility] 7t [place] [address] Care Team Providers Care Rn Internal Medicine Name Role Phone Cheryl [facility] Primary Care Provider [phone] Allergies No known active allergies Medications olmesartan (Benicar) 5 MG tabletIndications :Essential hypertension Take 1 tablet (5 mg) by mouth Once per day. 30 tablet 11 5 03/31/19 26 Active olmesartan (Benicar) 5 MG tabletIndications :Essential hypertension Take 2 tablets (10 mg) by mouth Once per day. 60 tablet 11 5 04/20/19 26 Active amLODIPine (Norvasc) 5 MG tabletIndications :Essential hypertension Take 1 tablet (5 mg) by mouth Once per day. 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 Years, prolonged 2-3 weeks monthly per report Last Assessment & Plan: Due to ongoing vaginal bleeding x1 mo Hemoglobin improved overnight to 7.8 posttransfusion She had a prior vaginal bleed that went on for some time for which midwives at [facility] gave her an oral medication This bleeding started prior to her tubal ligation on 08/22 and has continued daily since then I attempted to schedule the patient a follow-up with Dr. Barboza, I was placed on voicemail, I left a message for the nursing staff to convey the circumstances of admission to Dr. Barboza. And asked my medical center manager to schedule her a follow- up appointment, follow-up CBC will be done on Wednesday norethindrone to start tomorrow. Patient is aware of these instructions Encounters Date Type Department Care Team Description 05/02/[address] [address] Nikole Luna FNP Labs (I informed the patient, that an order for MMR titers was sent to the [facility] lab. She stated that she would have them done on 05/03/24.) 05/01/2024 11:00 AM EDT Clinical Support [address] [address] Marii Ortiz, RN Essential hypertension 05/01/[address] [address] Marii Ortiz, rn travel Orders 05/01/[address] [address] Marii Ortiz, RN Essential hypertension 05/01/2024 Travel 04/17/2024 11:00 AM EST Clinical Support [facility] [place] [address] Shahla Multani, NELY Essential hypertension 04/17/2024 Travel 03/31/2024 10:15 AM EST Office Visit [facility] MEDICINE [address] [place] [address] Nikole Luna FNP Essential hypertension (Primary Dx); Dizziness; Nonintractable episodic headache, unspecified headache type 03/31/2024 Travel 03/20/2024 Patient Outreach [facility] MEDICINE [address] [place] [address] Nikole Luna FNP Pre-visit Planning (SDOH screening negative and tobacco screening negative) from Last 3 Months Immunizations Name Administration Dates Next Due Hep A, Adult 2012,05/26/2011 Hep B, adult 2012,07/08/2011,05/26/2011 Influenza, IIV3, injectable 11/14/2013 Influenza, Split (incl. howard fied surface antigen) 11/21/2012 Tdap 07/28/2023,05/26/2011 Family History Medical History Relation Name Comments Prostate cancer Father Relation Name Status Comments Father Social History Tobacco Use Types Packs/Day Years Used Date Smoking Tobacco: Never Smokeless Tobacco: Never Tobacco Cessation:Counseling Given: Not Answered Alcohol Use Standard Drinks/Week Comments Never 0 [...] not to disclose 2021 10:20 AM EDT Last Filed Vital Signs Vital Sign Reading Time Taken Comments Blood Pressure 141/91 05/01/2024 12:07 PM EDT Pulse 88 05/01/2024 12:07 PM EDT Temperature 36.7 ??C (98 ??F) 04/17/2024 11:09 AM EST Respiratory Rate 20 04/17/2024 11:09 AM EST Oxygen Saturation 100% 04/17/2024 11:09 AM EST Inhaled Oxygen Concentration - - Weight 89 kg (196 lb 3.2 oz) 04/17/2024 11:09 AM EST Height 168.3 cm (5' 6.25 ) 04/17/2024 11:[address] Body Mass Index 31.43 04/17/2024 11:09 AM EST Plan of Treatment Upcoming Encounters Date Type Department Care Team (Late st Contact Info) Description 05/15/2024 11:15 AM EDT Office Visit [facility] MEDICINE [address] [place] [address] [place] [facility] [address] [place] [address] Health Maintenance Due Date Last Done Comments CT Colonography 1970 FIT DNA/Cologuard 1970 FIT 1970 FOBT 1970 HIV Screening 1970 Sigmoidoscopy 1970 Pneumococcal Vaccine: 50+ Years (1 of 1 - PCV) 2020 Zoster Vaccines (1 of 2) 2020 COVID-19 Vaccine (3 - 2023- season) 2023 08/13/2020, 07/23/2020 Influenza Vaccine (#1) 2023 11/14/2013, 2012 Alcohol/Substance Use Screening 07/27/2024 07/28/2023 Mammogram 09/01/2024 09/02/2023, 070 07/2022, 02/28/2020, Additional history exists Depression Screening 03/31/2025 03/31/2024, 03/31/19 25 SDOH Screening 03/31/2025 03/31/2024 Tobacco Screening 04/03/2025 04/03/2024 Cervical Cancer Screening 07/02/2025 HPV/Cotest 07/02/2025 07/02/2020, 06/22, 07/02/2020, Additional history exists Pap Smear 07/02/2025 07/02/2020, 04/17/2020 Colonoscopy 02/24/2026 02/24/2021 Colorectal Cancer Screening 02/24/2026 Lipid Panel 08/03/2028 08/04/2023, 09/09/2021 DTaP/Tdap/Td Vaccines (3 - Td or Tdap) 07/27/2033 07/28/2023, 05/26/2011 RSV Patients and Patients Aged 60 years or older (1 - 1-dose 75+ series) 2045 Hepatitis A Vaccines Aged Out 2012, 05/26/19 12 No longer eligible based on patient's age to complete this topic Hepatitis B Vaccines Completed 2012, 07/08/2011, 05/26/2011 Hepatitis C Screening Completed 04/16/2021 HIB Vaccines Aged Out No longer eligi ble based on patient's age to complete this topic HPV Vaccines Aged Out No longer eligi ble based on patient's age to complete this topic IPV Vaccines Aged Out No longer eligi ble based on patient's age to complete this topic Meningococcal Vaccine Aged Out No edgar rajinder eligible based on patient's age to complete this topic RSV under 20 months Aged Out No longe r eligible based on patient's age to complete this topic Rotavirus Vaccines Aged Out No longer eligible based on patient's age to complete this topic Procedures Procedure Name Priority Date/Time Associated Diagnosis Comments BI MAMMOGRAM SCREENING TOMOSYNTHESIS BILATERAL Routine 09/02/2023 11:23 AM EDT LIPID PANEL, STANDARD Routine 08/04/2023 12:08 PM EDT Class 1 obesity due to excess calories with body mass index (BMI) of 34.0 to 34.9 in adult, unspecified whether serious comorbidity present ZZZ HISTORICAL HEPATITIS C AB W/REFL TO HCV RNA, QN, PCR Routine 04/16/2021 2:33 PM EST HM COLONOSCOPY Routine 02/24/2021 PAP/HPV Routine 07/02/2020 from Last 3 Months or Most Recently Relevant to Health Maintenance Results * BI Mammogram Screening Tomosynthesis Bilateral (09/02/2023 11:23 AM EDT) Anatomical Region Laterality Modality Breast Bilateral Mammography 09/02/2023 11:2 3 AM EDT Narrative 09/27/2023 10:38 PM EDT ? [facility] ? [address] ?[place] [address] ? Mammography Report ? Signed ? Patient: Porrata,Sayra ?MR#: [id number] ?? [id number] ? : 1970 ?Acct:[id number] ? Age/Sex: 52 / F ?ADM Date: 07/11/24 ? Loc: HO.MAMMO ? Attending Dr: Marie Freedman ? Ordering Physician: Lucinda Palomo MD ?Results: ?? 1Negative ? Date of Service: 09/02/23 ?Follow Up: 1 Year From Orig ?? inal Mammogram ? Procedure(s): MM tomosynthesis screening BI ?? Accession Number(s): [id number] ? cc: Lucinda Palomo MD; Nikole Luna TRAVEL PT ? EXAMINATION: ?? MM SCREENING DIGITAL BREAST TOMOSYNTHESIS, BILATERAL ? CLINICAL INFORMATION: ? Screening. Asymptomatic. ? COMPARISON: ?? Mammography: This study is compared with prior exams dating back to ?? 2018. ? TECHNIQUE: ?? Digital breast tomosynthesis is performed in both the craniocaudal and ?? mediolateral oblique views along with computer-aided detection (CAD). ?? Synthesized 2D images are generated from the tomosynthesis. ? FINDINGS: ?? There are scattered areas of fibroglandular density (ACR BI-RADS breast ?? composition Category b). ? There are no significant masses, abnormal calcifications, or other ?? abnormalities. ? MM/MM tomosynthesis screening BI ?? IMPRESSION: ?? No mammographic evidence of malignancy. ? ASSESSMENT: ? BI-RADS BI-RADS 1 - Negative ? RECOMMENDATION: ?? Routine annual mammography screening. ? 1 year F/U ? This examination should not preclude the clinical evaluation of a ?? suspicious palpable abnormality. ? This patient's information was entered into a reminder system with a ?? target due date for their next mammogram. ? Dictated By: ?Concepción Jama MD ? Signed By: ?<Electronically signed by Concepción Jama MD in OV> ? 08/05/24 5 ? DD/ 1123 ? TD/TT: ? Sulphate Tester: ? Procedure Note Donotuseinterpreter, Image - 09/27/2023 [place] [facility] [address] [place] [address] Mammography Report Signed Patient: Abiodun Pringle#: [id number] : 1970Acct:[id number] Age/Sex: 52 / FADM Date: 09/02/23 Loc: HO.MAMMO Attending Dr: Marie Freedman Ordering Physician: Lucinda Palomo MDResults: 1Negative Date of Service: 09/02/23Follow Up: 1 Year From Orig inal Mammogram Procedure(s): MM tomosynthesis screening BI Accession Number(s): [id number] cc: Lucinda Palomo MD; [facility] TRAVEL PT EXAMINATION: MM SCREENING DIGITAL BREAST TOMOSYNTHESIS, BILATERAL CLINICAL INFORMATION: Screening. Asymptomatic. COMPARISON: Mammography: This study is compared with prior exams dating back to 2018. TECHNIQUE: Digital breast tomosynthesis is performed in both the craniocaudal and mediolateral oblique views along with computer-aided detection (CAD). Synthesized 2D images are generated from the tomosynthesis. FINDINGS: There are scattered areas of fibroglandular density (ACR BI-RADS breast composition Category b). There are no significant masses, abnormal calcifications, or other abnormalities. MM/MM tomosynthesis screening BI IMPRESSION: No mammographic evidence of malignancy. ASSESSMENT: BI-RADS BI-RADS 1 - Negative RECOMMENDATION: Routine annual mammography screening. 1 year F/U This examination should not preclude the clinical evaluation of a suspicious palpable abnormality. This patient's information was entered into a reminder system with a target due date for their next mammogram. Dictated By: Cocnepción Jama MD Signed By: <Electronically signed by Concepción Jama MD in OV> 09/27/234 DD/ 1123 TD/TT: Sulphate Tester: Lucinda Arceo MD IMG BI PROCEDURES Fin al Result * (ABNORMAL) Lipid Panel, Standard (08/04/2023 12:08 PM EDT) Triglycerides 50 <150 mg/dL [facility] Comment:Desirable Triglyceri de: less than 150 mg/dLBorderline High Triglyceride 150-199 mg/dLHigh Triglyceride: 200-499 mg/dLVery High Triglyceride: greater than or equal to 5OO mg/dL Cholesterol 185 <200 mg/dL [facility] Comment:Desirable Cholestero l: less than 200 mg/dLBorderline High Cholesterol: 200-239 mg/dLHigh Cholesterol: greater than 239 mg/dL LDL Cholesterol Calculated 124(H) <100 mg/dL [facility] Comment:Desirable LDL: less than 100 mg/dLNear Optimal/Above Optimal LDL: 110- 129 mg/dLBorderline High LDL: 130-159 mg/dLHigh LDL: 160-189 mg/dLVery High LDL: greater than or equal to 190 mg/dL HDL Cholesterol 51 >40 mg/dL [facility] Comment:Desirable HDL: great er than 40 mg/dL Note: This HDL assay may give artificially low results in patients with liver disease. Blood Venous blood specimen / Unknown 08/04/2023 12:08 PM EDT 08/04/2023 1:14 PM EDT [facility] LAB BLOOD ORDERABLES Final Re sult [facility] [address] [place] [address] [phone] * HEPATITIS C AB W/REFL TO HCV RNA, QN, PCR (04/16/2021 2:33 PM EST) HEPATITIS C ANTIBODY NON-REACT CLAU NON-REACT CLAU [facility] INDEX 0.06 <1.00 [facility] Comment: ?? HCV antibody was non-reactive. There is no laboratory ?? evidence of HCV infection. ?? In most cases, no further action is required. However, if recent HCV exposure is suspected, a test for HCV RNA (test code 58049) is suggested. ?? For additional information please refer to http://education.LikeBright/faq/FSM38l0 (This link is being provided for informational/ educational purposes only.) ?? 04/16/2021 2:33 PM EST Marie Freedman SESSIONS CLERK HISTORICAL/NON ORDERABLE LABS F inal Result [facility] [address] * (ABNORMAL) Hm Colonoscopy (02/24/2021) Colonoscopy Abnormal( A) Normal Comment:Repeat in 5 years Historical Provider MD HEALTH MAINTENANCE Final Result * Hm Pap Smear (07/02/2020) Pap Negative for intraephithelial lesion or malignancy Negative for intraephithelial lesion or malignancy, Other HPV Undetected Historical Provider MD HEALTH MAINTENANCE Final Result from Last 3 Months or Most Recently Relevant to Health Maintenance Insurance [facility] Care Teams Rn Internal Medicine Relationship Specialty Start Date End Date [place] FNP [address] [place] [phone] PCP - General Family Medicine 10/16/21
--- OUTSIDE RECORDS SUMMARY | 2024-05-03 11:03 | XMS_ITS | Encounter Summary ---
Author Organization [employer] Address [address] [facility] 7t [place] [address] Care Team Providers Care Saw Grinder Name Role Phone Cheryl [facility] Primary Care Provider [phone] Reason for Visit * Reason Onset Date Comments Lab Orders 05/01/2024 Encounter Details Date Type Department Care Team (Late st Contact Info) Description 05/01/2024 Telephone [facility] MEDICINE [address] [place], [place] [phone] Marii Ortiz RN [address] [place] [address] Lab Orders Social History Tobacco Use Types Packs/Day Years [...] encounter Miscellaneous Notes * Telephone Encounter - Marii Ortiz RN - 05/01/2024 3:40 PM EDT TC received from forms dept., pt. Needs MMR titers ordered for employment paperwork. They will let pt. Know. Order placed documented in this encounter Plan of Treatment Upcoming Encounters Date Type Department Care Team (Late st Contact Info) Description 05/15/2024 11:15 AM EDT Office Visit [facility] MEDICINE [address] [place] [address] [facility] [address] [place] [address] Scheduled Orders Name Type Priority Associated Diagnoses Orde r Schedule Measles, Mumps, and Rubella (MMR) Antibodies??(IgG) Panel, Immune Status Lab Routine Pre-employment examination Expected: 05/01/2024 (Approximate), Expires: 05/01/2025 documented as of this encounter Visit Diagnoses Diagnosis Pre-employment examination documented in this encounter Additional Health Concerns Assessment Noted Time PHQ-9 Depression Total Score: 0 03/31/19 10:15 AM EST documented as of this encounter Care Teams Saw Grinder Relationship Specialty Start Date End Date Nikole Luna FNP [address] [place] [phone] PCP - General Family Medicine 10/16/21 documented as of this encounter
--- OUTSIDE RECORDS SUMMARY | 2024-05-03 11:03 | XMS_ITS | Encounter Summary ---
Author Organization [email or web address] Address [address] [facility] 7t [place] [address] Care Team Providers Care Machine Operator General Name Role Phone Cheryl Nikole [facility] Primary Care Provider [phone] Reason for Visit * Reason Comments Hypertension Encounter Details Date Type Department Care Team (Latest Contact Info) Description 05/01/2024 11:00 AM EDT Clinical Support [facility] MEDICINE [address] [place], [place] [phone] Marii Ortiz RN [address] [place], [place] [phone] Essential hypertension Social History Tobacco Use Types Packs/Day Years [...] your housing situation today? I have willy keyanna 06/30/[address] you li [...] AM EDT documented as of this encounter Last Filed Vital Signs Vital Sign Reading Time Taken Comments Blood Pressure 141/91 05/01/2024 12:07 PM EDT Pulse 88 05/01/2024 12:07 PM EDT Temperature - - Respiratory Rate - - Oxygen Saturation - - Inhaled Oxygen Concentration - - Weight - - Height - - Body Mass Index - - documented in this encounter Progress Notes * Marii Ortiz RN - 05/01/2024 11:00 AM EDT S: Pt here for BP check nurse visit. At last appointment (04/17/24), pt's BP noted to be 146/106. Recommendations made on that day were increase olmesartan 5mg to 10mg daily. Today, pt states since increasing medication, she has been experiencing weakness, dizziness, headaches and fatigue that starts shortly after taking rx and resolves slowly throughout the day. She feels like 10mg is too much for her. Denies blurred vision, chest pain or sob. Pt reports compliance with BP medication regimen and continues on 10mg despite side effects. Confirms that BP medications were taken today around 8am. Pt. Has been checking Bps at home since last visit with readings ranging from 108/82- 151/99, majority of readings are high. O: L arm 141/91, HR 88 A: Compliance with BP medication regimen BP not at goal of <140/90 Reinforcement of Lifestyle modification including low sodium diet and exercise. P: Consulted with provider regarding BP findings. Orders at this time are decrease olmesartan back down to 5mg daily and add amlodipine 5mg daily. Pt to f/u with PCP at scheduled appt. 05/15/24 or sooner prn. Continue to check blood pressure daily and bring readings to appt. Pt agrees with plan and verbalized understanding. documented in this encounter Plan of Treatment Upcoming Encounters Date Type Department Care Team (Late st Contact Info) Description 05/15/2024 11:15 AM EDT Office Visit [facility] MEDICINE [address] [place] [address] Nikole Luna FNP [address] [place] [address] documented as of this encounter Visit Diagnoses Diagnosis Essential hypertension Unspecified essential hypertension documented in this encounter Additional Health Concerns Assessment Noted Time PHQ-9 Depression Total Score: 0 03/31/19 25 10:15 AM EST documented as of this encounter Care Teams Machine Operator General Relationship Specialty Start Date End Date Nikole Luna FNP [address] [place] [address] PCP - General Family Medicine 10/16/21 documented as of this encounter
--- OUTSIDE RECORDS SUMMARY | 2024-05-03 11:03 | XMS_ITS | Encounter Summary ---
Author Organization [employer] Address [address] [facility] [address] [place] [address] Care Team Providers Care Remedial Project Manager Name Role Phone Cheryl [facility] Primary Care Provider [phone] Reason for Visit * Reason Onset Date Comments Med Refill 05/01/2024 Encounter Details Date Type Department Care Team (Late st Contact Info) Description 05/01/2024 Refill [facility] [address] [place], [place] [id number] Marii Ortiz RN [address] [place] [address] Essential hypertension Social History Tobacco Use Types [...] Encounter - Marii Ortiz RN - 05/01/2024 12:09 PM EDT As discussed at BP appt. Today documented in this encounter Plan of Treatment Upcoming Encounters Date Type Department Care Team (Late st Contact Info) Description 05/15/2024 11:15 AM EDT Office Visit [facility] [address] [place] [address] Nikole Luna FNP [address] [place] [address] documented as of this encounter Visit Diagnoses Diagnosis Essential hypertension Unspecified essential hypertension documented in this encounter Additional Health Concerns Assessment Noted Time PHQ-9 Depression Total Score: 0 03/31/19 10:15 AM EST documented as of this encounter Care Teams Remedial Project Manager Relationship Specialty Start Date End Date Nikole Luna FNP [address] [place] [address] PCP - General Family Medicine 10/16/21 documented as of this encounter
--- OUTSIDE RECORDS SUMMARY | 2024-05-03 11:03 | XMS_ITS | Encounter Summary ---
Author Organization [employer] Address [address] [facility] [address] [place] [address] Care Team Providers Care Medical Anthropology Director Name Role Phone Cheryl [facility] Primary Care Provider [phone] Encounter Details Date Type Department Care Team (Latest Contact Info) Description 05/01/2024 Travel Social History Tobacco Use Types Packs/Day Years [...] Description 05/15/2024 11:15 AM EDT Office Visit [facility] [address] [place] [address] Nikole Luna FNP [address] [place] [address] documented as of this encounter Visit Diagnoses Not on filedocumented in this encounter Additional Health Concerns Assessment Noted Time PHQ-9 Depression Total Score: 0 03/31/19 10:15 AM EST documented as of this encounter Care Teams Medical Anthropology Director Relationship Specialty Start Date End Date Nikole Luna FNP [address] [place] [id number] PCP - General Family Medicine 10/16/21 documented as of this encounter
--- OUTSIDE RECORDS SUMMARY | 2024-05-03 11:03 | XMS_ITS | Encounter Summary ---
Author Organization [employer] Address [address] [facility] [address] [place] [address] Care Team Providers Care Farmworker Animal Name Role Phone Cheryl [facility] Primary Care Provider [phone] Encounter Details Date Type Department Care Team (Latest Contact Info) Description 04/17/2024 Travel Social History Tobacco Use Types Packs/Day [...] Description 05/15/2024 11:15 AM EDT Office Visit [facility] [address] [place] [address] Nikole Luna FNP [address] [place] [address] documented as of this encounter Visit Diagnoses Not on filedocumented in this encounter Additional Health Concerns Assessment Noted Time PHQ-9 Depression Total Score: 0 03/31/19 10:15 AM EST documented as of this encounter Care Teams Farmworker Animal Relationship Specialty Start Date End Date Nikole Luna FNP [address] [place] [id number] PCP - General Family Medicine 10/16/21 documented as of this encounter
--- OUTSIDE RECORDS SUMMARY | 2024-05-03 11:03 | XMS_ITS | Encounter Summary ---
Author Organization [employer] Address [address] [facility] [address] [place] [address] Care Team Providers Care Portfolio Administrator Name Role Phone Cheryl Lejunior DESULFURIZER OPERATOR Primary Care Provider [phone] Reason for Visit * Reason Comments Hypertension Nurse visit BP check Encounter Details Date Type Department Care Team (Latest Contact Info) Description 04/17/2024 11:00 AM EST Clinical Support [facility] [address] [place] [address] Shahla Multani RN Essential hypertension Social History Tobacco Use Types [...] Sign Reading Time Taken Comments Blood Pressure 146/106 04/17/2024 11:19 AM EST Pulse 80 04/17/2024 11:19 AM EST Temperature 36.7 ??C (98 ??F) 04/17/2024 11:09 AM EST Respiratory Rate 20 04/17/2024 11:09 AM EST Oxygen Saturation 100% 04/17/2024 11:09 AM EST Inhaled Oxygen Concentration - - Weight 89 kg (196 lb 3.2 oz) 04/17/2024 11:09 AM EST Height 168.3 cm (5' 6.25 ) 04/17/2024 11:[address] Body Mass Index 31.43 04/17/2024 11:09 AM EST documented in this encounter Progress Notes * Shahla Multani RN - 04/17/2024 11:00 AM EST SUBJECTIVE: Sayra Pringle is a 53 y.o. year old female who presents for blood pressure check Preferred language for medical information: Divehi Recommendations at last visit were 1. Essential hypertension (Primary) -Patient meets diagnostic criteria for hypertension - Start olmesartan 5 mg once daily. Reviewed administration, risks, side effects - Continue to check home blood pressure once daily - RN BP check in 2 weeks Reviewed ED precautions to include chest pain, shortness of breath, severe headache, sudden vision changes or BP >=180/>=120 mmHg. Contact HC if three or more BP readings >140/90. - olmesartan (Benicar) 5 MG tablet; Take 1 tablet (5 mg) by mouth Once per day. Dispense: 30 tablet; Refill: 11 >Today, Sayra Pringle denies complaints of any blurred vision, shortness of breath, chest pain, dizziness, or headaches. > Pt has been checking her blood pressures at home. Pt's paperwork details multiple high readings: 167/111; 161/105; 161/108; 148/99;155/97 (record to be scanned to EMR) Current Outpatient Medications Medication Sig Dispense Refill olmesartan (Benicar) 5 MG tablet Take 1 tablet (5 mg) by mouth Once per day. 30 tablet 11 No current facility-administered medications for this visit. Patient Active Problem List Diagnosis Date Noted Abnormal uterine bleeding 05/27/2023 History of anemia 05/27/2023 Vitamin D deficiency 05/27/2023 Essential hypertension 07/08/2021 Endometrial hyperplasia 06/05/2021 Pain of left lower extremity 06/01/2021 Thyroid nodule 04/16/2021 Pain of left hip joint 04/03/2021 Anemia 09/18/2020 Patient has no known allergies. Sayra Pringle does confirm adherence to medications for hypertension listed above. Confirmed medications taken today [x] Recent emergency room or hospitalizations: no Notes scanned into chart: yes (BP log from home) Social History Tobacco Use Smoking Status Never Smokeless Tobacco Never Social History Substance and Sexual Activity Alcohol Use Never Social History Substance and Sexual Activity Drug Use Never BP Readings from Last 4 Encounters: 03/31/24 (!) 140/90 07/28/23 120/88 09/09/21 122/68 07/15/21 114/80 Pulse Readings from Last 4 Encounters: 03/31/24 95 07/28/23 86 09/09/21 92 07/15/21 78 Objective: Today's blood pressures read: R 137/106; L 146/106 ASSESSMENT: Pt has had consistently elevated BP readings despite taking 5 mg Benicar every day Achieve goal blood pressure of <140/90 or <130/80 PLAN: Today's findings reviewed with PCP Kaila NOONANP as well as pt's BP log >Changes to medication regimen are: Increase daily dose of Benicar from 5 mg to 10 mg daily >Continue checking BP daily >Parameters and ER care reviewed >Follow up BP check made for 2 weeks Sayra Pringle advised to continue taking medications as directed: Increase dose of Benicar from 5 mg every day to 10 mg every day Pt states understanding and agreement with plan of care and reinforcement of lifestyle modifications including low sodium diet > denies attempting and exercise were reviewed> denies attempting Sayra Pringle agreeable to plan discussed at today's visit. Future Appointments Date Time Provider Department Center 05/15/2024 11:15 AM SHAISTA NicholsP MEDICINE [facility] Shahla Multani RN * Alicia Fields RN - 04/17/2024 11:00 AM EST TC placed to [phone] in regards to below message. Patient advised new RX for 2 tabs daily of benicar has been sent to the pharmacy. Patient verbalized understanding and did not have any further questions. Patient to f/u PRN. documented in this encounter Plan of Treatment Upcoming Encounters Date Type Department Care Team (Late st Contact Info) Description 05/15/2024 11:15 AM EDT Office Visit [facility] [address] [place] [address] [facility] [address] [place] [address] documented as of this encounter Visit Diagnoses Diagnosis Essential hypertension Unspecified essential hypertension documented in this encounter Additional Health Concerns Assessment Noted Time PHQ-9 Depression Total Score: 0 03/31/19 10:15 AM EST documented as of this encounter Care Teams Portfolio Administrator Relationship Specialty Start Date End Date Nikole Luna FNP [address] [place] [id number] PCP - General Family Medicine 10/16/21 documented as of this encounter
== END 2024-05-03 09:54 | disposition home or self-care (01) ==
LOC: HO.US 09:53
PROVIDERS: PCP Registered Nurse; Visit Provider Student in an Organized Health Care Education/Training Program
DX: E05.20 Thyrotoxicosis with toxic multinodular goiter without thyrotoxic crisis or storm (principal)
CPT/HCPCS: 10005; 88173

== ENCOUNTER → 2024-05-03 09:53 | Outpatient (BNV) | payer OTHER, SELFPAY | PROVIDERS: PCP Registered Nurse; Visit Provider Student in an Organized Health Care Education/Training Program | DX: E05.20 Thyrotoxicosis with toxic multinodular goiter without thyrotoxic crisis or storm (principal) | CPT/HCPCS: 10005 ==

== ENCOUNTER 2024-05-15 12:21 | Outpatient (REF) | payer OTHER, SELFPAY ==
[2024-05-15 14:22] LABS: Anion Gap 8 (12-20); Blood Urea Nitrogen 11 mg/dL (9-16); Calcium 8.9 mg/dL (8.4-10.2); Carbon Dioxide 26 mmol/L (22-29); Chloride 111 mmol/L (96-108); Estimated Glomerular Filt Rate > 60; Glucose Random 80 mg/dL (60-115); Potassium 3.7 mmol/L (3.3-5.1); Sodium 141 mmol/L (135-145)
== END 2024-05-15 12:22 | disposition home or self-care (01) ==
LOC: HO.HHCL 12:21
PROVIDERS: Visit Provider Registered Nurse
DX: I10 Essential (primary) hypertension (principal)
CPT/HCPCS: 36415; 80048

== ENCOUNTER 2024-05-17 15:30 | Outpatient (AMB) | payer OTHER, SELFPAY ==
[2024-05-17 15:32] VITALS: BP 120/80; PULSE 96; O2SAT 96; BMI 32.9
--- NOTE | 2024-05-17 15:32 | MHC.OFFVIS ---
Vital Signs 05/17/24 15:32 Height 5 ft 4 in Weight 191 lb 12.835 oz BMI 32.9 BP 120/80 Blood Pressure Location Rt brachial Position Sitting Pulse 96 Pulse Source Pulse Oximeter Pulse Oximetry (%) 96 Oxygen Delivery Method Room Air Intake Visit Reasons: Biopsy f/u Intake Note: Patient present today for biopsy results. Transportation Department Supervisor Required: Yes Transportation Department Supervisor Language: It Help Desk Analyst Services: Transportation Department Supervisor Present (myLINGO Jeanette) Transportation Department Supervisor Name: #[id number] Accompanied by: Self / Same As Patient Allergies No Known Allergies [No Known Allergies*] Allergy (Verified 05/17/24 15:33) HPI Comments Details: 53 YO F with who is seen for follow up of subclinical hyperthyroidism and multinodular goiter. HPI Has had thyroid nodules at least dating back to 2015. Apparently she did have FNA of the dominant right mid lobe 2.4 cm nodule back in November 2015 per the ultrasound report, however I do not have these results. So unclear if it was benign at that time. Thyroid ultrasound from April 2021, showed stable size of the dominant right mid lobe nodule which is mixed cystic solid, commented on as isoechoic with no other suspicious features, TR 2 nodule. Another right superior 1.1 cm new nodule TR 3 category. The subcentimeter right mid lobe nodule. A 1.1 cm right inferior TR 4 category nodule noted. A left superior solid, isoechoic nodule with echogenic foci, TR 4 category which had increased in size from subcentimeter in 2015 to 1 cm in size. Thyroid ultrasound from July 2023 showed stable size of the right midpole nodule which is when I reviewed the images mixed cystic solid, hypoechoic, TR 3 category. Right upper pole spongiform nodule remains stable in size. Right midpole subcentimeter nodule also stable in size. Right lower subcentimeter nodule TR 4 category also stable in size. The left superior TR 4 category nodule that was previously measured as 1 cm now measuring subcentimeter in size. Previously had normal thyroid function testing prior to summer. Since July 2023 she has been noted to have low TSH levels ranging anywhere from 0.11-0.18. Normal free T4. Thyrotropin receptor antibody negative. Most recent labs done 01/12/2024 showed TSH low of 0.11, normal free T4 of 0.86. Thyroid uptake and scan from 12/02/2023, I reviewed the images myself which shows no increased uptake, however heterogenous areas of uptake noted with photopenic areas in the right upper pole, as well as the left upper pole and left lateral inferior pole. Currently denies any dysphagia or hoarseness of voice. Denies sensation of swelling in the neck or difficulty breathing while lying flat. [Denies] any tenderness in the neck. Does report intermittent palpitations. Denies any , tremors, weight loss, frequent bowel movements. Denies any ocular complaints, blurred or double vision. Denies hair loss, dry skin, heat or cold intolerance, weight gain, confusion. [Denies] any history of head or neck irradiation. [Denies] any family history of thyroid cancer or thyroid disease. Denies use of kelp or seaweed or recent exposures iodinated contrast dye No use of biotin Interval history 05/03/2024: Underwent FNA biopsy of the right midpole 2.4 cm nodule with benign cytology, [place] category 2. Physical exam General: sitting comfortably in no acute distress HEENT: normocephalic/atraumatic, EOM intact, moist oral mucosa Neck: supple, palpable 2 cm right-sided nodule Cardiac: normal heart sounds Pulm: normal breath sounds B/L, no added breath sounds Abd: not distended, no tenderness Extremities: no edema, no signs of myxedema Neuro: AAO x3, Speech: normal, no facial droop, moving all 4 extremities Laboratory Tests 01/15/20 04/23/20 08/04/23 17:43 09:42 12:08 TSH 0.55 0.58 0.12 L Free T4 0.82 Free T3 TSH Receptor Ab 10/22/23 01/12/24 12:47 11:31 TSH 0.18 L 0.11 L Free T4 0.78 0.86 Free T3 3.6 TSH Receptor Ab <1.00 THYROID UPTAKE AND SCAN 12/02/23 CLINICAL INFORMATION: Hyperthyroidism. COMPARISON: Thyroid ultrasound done on 08/19/2023. TECHNIQUE: Following the oral administration of 275 microcuries of I-123 sodium iodide, thyroid uptake was performed and expressed as a percentage of the administrated dose. Gamma scintillation camera images of the thyroid in the anterior and right and left anterior oblique views were obtained using a pinhole collimator following the administration of 10.0 mCi Tc-99m pertechnetate. FINDINGS: The uptake is 4.78% at 4 hours and 9.52% at 24 hours (Normal radioiodine uptake at 4 to 6 hours is about 5-15% and at 24 hours is 10% to 30%). The radioiodine uptake is slightly below normal. The radiopertechnetate thyroid scintigram demonstrates the thyroid gland heterogenous with the right lobe larger than the left. There is heterogenous tracer activity present bilaterally associated with multiple photopenic defects with the dominant photopenia seen involving mid part of the right lobe, corresponding to the dominant mixed echogenic nodule measuring 2.37 cm seen on the prior thyroid ultrasound dated 08/19/2023. The trapping function appears normal. NM/NM thyroid w uptake IMPRESSION: 1. The radioiodine uptake at 4 hours and at 24 hours is slightly below normal. 2. Abnormal morphologic appearance of the thyroid gland showing features consistent with multinodular gland, similar to prior thyroid ultrasound done on 08/19/2023. Electronically signed by: Chandrika De Paz MD 01/07/2024 11:20 AM [facility] US THYROID 08/19/23 CLINICAL INFORMATION: Hyperthyroidism. History of nodules. COMPARISON: Thyroid ultrasound 05/07/2021 and 11/18/2015. Ultrasound-guided thyroid biopsy 11/29/2015. TECHNIQUE: Linear transducer grayscale and color Doppler examination with attention to the region of the thyroid. FINDINGS: SIZE: Measurements of the thyroid lobes and nodules are given in sagittal, anteroposterior and transverse dimensions respectively. Right Thyroid Lobe: 5.3 x 2.1 x 2.1 cm, volume 12.3 mL. Previously 6.0 x 2.5 x 2.6 cm, volume 20.4 mL. Parenchyma: The gland echotexture is heterogeneous. Thyroid vascularity is increased. Left Thyroid Lobe: 5.0 x 1.3 x 1.4 cm, volume 4.9 mL. Previously 5.3 x 1.4 x 1.8 cm, volume 7.0 mL. Parenchyma: The gland echotexture is heterogeneous. Thyroid vascularity is normal. Isthmus: 0.3 cm in maximum AP dimension. Previously 0.3 cm. Estimated total number of nodules greater than or equal to 1 cm: 2. Venereal Disease Investigator nodules are described as follows: 1. Location: Right mid pole. Size: 2.4 x 1.7 x 1.8 cm, volume 3.8 mL. Previously: 2.2 x 2.2 x 1.8 cm, volume 4.6 mL. Nodule characteristics: Composition: Solid/almost completely solid (2). Echogenicity: Isoechoic (1). Shape: Not taller than wide (0). Margins: Smooth (0). Echogenic Foci: None (0). ACR TI-RADS total points: 3 Previous: 2 ACR TI-RADS category: 3 Previous: 2 Significant change in size (>/= 20% in 2 dimensions and minimal increase of 2 mm or 50% or greater increase in volume): No Change in features: No Change in ACR TI-RADS risk category: Yes 2. Location: Right upper pole. Size: 1.2 x 0.7 x 0.9 cm, volume 0.4 mL. Previously: 1.1 x 0.9 x 0.7 cm, volume 0.4 mL. Nodule characteristics: Composition: Spongiform (0). ACR TI-RADS total points: 0 Previous: 3 ACR TI-RADS category: 1 Previous: 3 Significant change in size (>/= 20% in 2 dimensions and minimal increase of 2 mm or 50% or greater increase in volume): No Change in features: Yes. Appearing spongiform in the current ultrasound. Change in ACR TI-RADS risk category: Yes 3. Location: Right mid pole. Size: 0.7 x 0.4 x 0.7 cm, volume 0.1 mL. Previously: 0.9 x 0.4 x 0.6 cm, volume 0.1 mL. Nodule characteristics: Composition: Mixed cystic and solid (1). Echogenicity: Isoechoic (1). Shape: Not taller than wide (0). Margins: Ill-defined (0). Echogenic Foci: None (0). ACR TI-RADS total points: 2 Previous: 2 ACR TI-RADS category: 2 Previous: 2 Significant change in size (>/= 20% in 2 dimensions and minimal increase of 2 mm or 50% or greater increase in volume): No Change in features: No Change in ACR TI-RADS risk category: No 4. Location: Right lower pole. Size: 0.6 x 0.6 x 0.8 cm, volume 0.2 mL. Previously: 1.1 x 0.9 x 0.9 cm, volume 0.5 mL. Nodule characteristics: Composition: Solid/almost completely solid (2). Echogenicity: Hypoechoic (2). Shape: Not taller than wide (0). Margins: Ill-defined (0). Echogenic Foci: None (0). ACR TI-RADS total points: 4 Previous: 3 ACR TI-RADS category: 4 Previous: 3 Significant change in size (>/= 20% in 2 dimensions and minimal increase of 2 mm or 50% or greater increase in volume): No Change in features: No Change in ACR TI-RADS risk category: Yes 5. Location: Left upper pole. Size: 0.8 x 0.6 x 0.8 cm, volume 0.2 mL. Previously: 1.0 x 0.6 x 0.4 cm, volume 0.1 mL. Nodule characteristics: Composition: Solid/almost completely solid (2). Echogenicity: Hypoechoic (2). Shape: Not taller than wide (0). Margins: Ill-defined (0). Echogenic Foci: None (0). ACR TI-RADS total points: 4 Previous: 6 ACR TI-RADS category: 4 Previous: 4 Significant change in size (>/= 20% in 2 dimensions and minimal increase of 2 mm or 50% or greater increase in volume): No Change in features: Yes. Previously described echogenic foci are not seen. Change in ACR TI-RADS risk category: Yes NODES: No lymphadenopathy is seen in the tissue surrounding the thyroid gland. US/US thyroid IMPRESSION: Enlarged, heterogeneous thyroid gland with multiple nodules. 1. 2.4 cm TR 3 nodule in the right mid pole. 2. 1.2 cm spongiform nodule in the right upper pole. 3. 0.7 cm TR 2 nodule in the right mid pole. 4. 0.8 cm TR 4 nodule in the right lower pole. 5. Single 0.8 cm TR 4 nodule in the left upper pole. If not previously obtained, FNA of the 2.4 cm TR 3 nodule in the right mid pole is recommended. Additional nodules could be follow-up by imaging in one year. US THYROID 04/2021 CLINICAL INFORMATION: Nontoxic single thyroid nodule. COMPARISON: Ultrasound soft tissue head/neck thyroid dated 11/18/2015. TECHNIQUE: Linear transducer grayscale and color Doppler examination with attention to the region of the thyroid. FINDINGS: SIZE: Measurements of the thyroid lobes and nodules are given in sagittal, anteroposterior and transverse dimensions respectively. Right Thyroid Lobe: 6.0 x 2.5 x 2.6 cm, volume 20.4 mL. Previously 5.8 x 2.8 x 2.8 cm, volume 24.0 mL. Parenchyma: The gland echotexture is homogeneous. Thyroid vascularity is increased. Left Thyroid Lobe: 5.3 x 1.4 x 1.8 cm, volume 7.0 mL. Previously 4.5 x 1.5 x 1.6 cm, volume 5.8 mL. Parenchyma: The gland echotexture is homogeneous. Thyroid vascularity is normal. Isthmus: 0.3 cm in maximum AP dimension. Previously 0.3 cm. Estimated total number of nodules greater than or equal to 1 cm: 4. Venereal Disease Investigator nodules are described as follows: 1. Location: Right mid. Size: 2.2 x 2.2 x 1.8 cm, volume 4.63 mL. Previously: 2.7 x 2.5 x 2.6 cm, volume 9.12 mL. Nodule characteristics: Composition: Mixed cystic and solid (1). Echogenicity: Isoechoic (1). Shape: Not taller than wide (0). Margins: Smooth (0). Echogenic Foci: None (0). ACR TI-RADS total points: 2 ACR TI-RADS category: 2 Significant change in size (>/= 20% in 2 dimensions and minimal increase of 2 mm or 50% or greater increase in volume): No Change in features: No Change in ACR TI-RADS risk category: No 2. Location: Right superior. Size: 1.1 x 0.9 x 0.7 cm, volume 0.40 mL. Previously: Not documented on the prior study. Nodule characteristics: Composition: Mixed cystic and solid (1). Echogenicity: Isoechoic (1). Shape: Not taller than wide (0). Margins: Smooth (0). Echogenic Foci: None (0). ACR TI-RADS total points: 3 ACR TI-RADS category: 3 3. Location: Right mid. Size: 0.9 x 0.4 x 0.6 cm, volume 0.11 mL. Previously: Not documented on the prior study. Nodule characteristics: Composition: Mixed cystic and solid (1). Echogenicity: Isoechoic (1). Shape: Not taller than wide (0). Margins: Smooth (0). Echogenic Foci: None (0). ACR TI-RADS total points: 2 ACR TI-RADS category: 2 4. Location: Right inferior. Size: 1.1 x 0.9 x 0.9 cm, volume 0.49 mL. Previously: Not documented on the prior study. Nodule characteristics: Composition: Mixed cystic and solid (1). Echogenicity: Isoechoic (1). Shape: Not taller than wide (0). Margins: Smooth (0). Echogenic Foci: Punctate echogenic foci (3). ACR TI-RADS total points: 5 ACR TI-RADS category: 4 5. Location: Left superior. Size: 1.0 x 0.6 x 0.4 cm, volume 0.12 mL. Previously: 0.4 x 0.3 x 0.4 cm, volume 0.03 mL. Nodule characteristics: Composition: Solid (2). Echogenicity: Isoechoic (1). Shape: Not taller than wide (0). Margins: Smooth (0). Echogenic Foci: Punctate echogenic foci (3). ACR TI-RADS total points: 6 ACR TI-RADS category: 4 Significant change in size (>/= 20% in 2 dimensions and minimal increase of 2 mm or 50% or greater increase in volume): Yes Change in features: Yes, punctate echogenic foci were not previously seen Change in ACR TI-RADS risk category: Yes NODES: No lymphadenopathy is seen in the tissue surrounding the thyroid gland. US/US thyroid IMPRESSION: A 1.0 cm left TR 4 thyroid nodule is increased in size from prior and demonstrates new punctate echogenic foci. Recommend one-year follow-up thyroid ultrasound. A 1.1 cm TR 4 right inferior thyroid nodule is new from prior. Recommend one-year follow-up thyroid ultrasound. The remainder of TR 2 and TR 3 thyroid nodules detailed above do not meet criteria for follow-up. [facility] Medical History Toxic multinodul goiter Subclinical hyperthyroidism Abnormal TSH H/O: hypertension Abnormal uterine bleeding Anemia Surgical History (Updated 05/17/24 @ 15:34 by STEPHAN Gill) Hx of biopsy History of endometrial ablation Hx of tubal ligation Family History Father Diabetes HTN (hypertension) Mother Asthma Social History Household Members: Spouse Housing: House Alcohol intake: never Patient Tobacco Use Status: Never used Tobacco Second Hand Smoke Exposure: No Female Reproductive History Menstrual Age of Menarche: 10 Physical Exam Vital Signs: Last Vital Signs Pulse 96 05/17/24 15:32 BP 120/80 05/17/24 15:32 Pulse Ox 96 05/17/24 15:32 Oxygen Delivery Method Room Air 05/17/24 15:32 BMI result Body Mass Index 32.9 Assessment & Plan Assessment & Plan (1) Subclinical hyperthyroidism: Code(s): E05.90 - Thyrotoxicosis, unspecified without thyrotoxic crisis or storm Category: Medical Plan: 53-year-old female who is here today for follow up of subclinical hyperthyroidism and multinodular goiter. Has had thyroid nodules at least dating back to 2015. Apparently she did have FNA of the dominant right mid lobe 2.4 cm nodule back in November 2015 per the ultrasound report, however I do not have these results. So unclear if it was benign at that time. Thyroid ultrasound from April 2021, showed stable size of the dominant right mid lobe nodule which is mixed cystic solid, commented on as isoechoic with no other suspicious features, TR 2 nodule. Another right superior 1.1 cm new nodule TR 3 category. The subcentimeter right mid lobe nodule. A 1.1 cm right inferior TR 4 category nodule noted. A left superior solid, isoechoic nodule with echogenic foci, TR 4 category which had increased in size from subcentimeter in 2016 to 1 cm in size. Thyroid ultrasound from July 2023 showed stable size of the right midpole nodule which is when I reviewed the images mixed cystic solid, hypoechoic, TR 3 category. Right upper pole spongiform nodule remains stable in size. Right midpole subcentimeter nodule also stable in size. Right lower subcentimeter nodule TR 4 category also stable in size. The left superior TR 4 category nodule that was previously measured as 1 cm now measuring subcentimeter in size. Previously had normal thyroid function testing prior to summer. Since July 2023 she has been noted to have low TSH levels ranging anywhere from 0.11-0.18. Normal free T4. Thyrotropin receptor antibody negative. Most recent labs done 01/12/2024 showed TSH low of 0.11, normal free T4 of 0.86. Thyroid uptake and scan from 12/02/2023, I reviewed the images myself which shows no increased uptake, however heterogenous areas of uptake noted with photopenic areas in the right upper pole, as well as the left upper pole and left lateral inferior pole. As far as the subclinical hyperthyroidism is concerned, given that she is less than 65 years of age with no history of heart disease or osteoporosis, with a TSH being greater than 0.1 at this time, she does not meet treatment criteria for subclinical hyperthyroidism and I will plan to repeat her labs in 6 months around July 2024. Given her uptake and scan showed photopenic areas which are collaborating with some of her nodules including the right mid lobe dominant 2.4 cm nodule that has even though he has been biopsied before in 2016 and has remained stable in size since I do not have those biopsy results in it meets criteria for FNA, 05/03/2024: Underwent FNA of the right midpole 2.4 cm thyroid nodule with benign cytology, [place] category 2. We will plan to repeat a thyroid ultrasound in 1 year in April 2025. Plan: - ordered TSH, free T4, total T3 to be done in 3 months prior to follow up appointment -plan to repeat thyroid ultrasound in April 2025 (2) Toxic multinodul goiter: Code(s): E05.20 - Thyrotoxicosis with toxic multinodular goiter without thyrotoxic crisis or storm Category: Medical Plan: see above Plan See above Orders: Orders Thyroid Stimulating Hormone 3 Months E05.20 - Thyrotoxicosis with toxic multinodular goiter without thyrotoxic crisis or storm, E05.90 - Thyrotoxicosis, unspecified without thyrotoxic crisis or storm Free T4 (Free Thyroxine) 3 Months E05.20 - Thyrotoxicosis with toxic multinodular goiter without thyrotoxic crisis or storm, E05.90 - Thyrotoxicosis, unspecified without thyrotoxic crisis or storm Triiodothyronine T3 Total 3 Months E05.20 - Thyrotoxicosis with toxic multinodular goiter without thyrotoxic crisis or storm, E05.90 - Thyrotoxicosis, unspecified without thyrotoxic crisis or storm Patient Instructions: Do blood work a week prior to next appointment in 3 months Coding Level of Care Code Est Pt Level 3 (51558) Diagnoses Subclinical hyperthyroidism E05.90 Toxic multinodul goiter E05.20
--- OUTSIDE RECORDS SUMMARY | 2024-05-17 18:37 | XMS_ITS | Encounter Summary ---
Author Organization [facility] Address [address] [place] [address] Care Team Providers Care Stepdown Nurse Name Role Phone [facility]yl [facility] Primary Care Provider [phone] Encounter Details Date Type Department Care Team (Late st Contact Info) Description 05/03/2024 Orders Only GENERIC EXTERNAL DATA DEPARTMENT Provider, Generic External Data Social History Tobacco Use Types Packs/Day Years [...] Care Team (Late st Contact Info) Description 06/19/2024 10:30 AM EDT Nutrition [facility] DIABETES/NUTRITION [address] [place] [address] Ale Owens, WAYNE [address] [place] [address] 08/16/2024 10:00 AM EDT Office Visit [facility] MEDICINE [address] [place] [address] [facility], PROGRAMMING MANAGER [address] [place] [address] documented as of this encounter Procedures Procedure Name Priority Date/Time Associated Diagnosis Comments FINE NEEDLE ASPIRATION Routine 05/03/2024 10:32 AM EDT documented in this encounter Results * Fine needle aspiration (05/03/2024 10:32 AM EDT) 05/03/2024 10:3 2 AM EDT 05/04/2024 6:50 AM EDT [facility] LAB[facility] - 05/04/2024 11:05 AM EDT ----- ------- Name: Sayra Pringle ?Age/Sex: 53/F ? : 1970 Unit#: [id number] ?? Attend Dr: Violette Vidal MD ?Re05/03/24 ?Status: DEP REF ? Location: HO.US ? Disch: ? ----- ------- SPEC : [id number] ? RECD: 05/04/24 ? STATUS: ??SOUT ? REQ NUM: [id number] ? FABIOLA: 05/03/24-1031 ? SUBM DR: Violette Vidal MD ? ENTERED: ??05/04/24 ?SP TYPE: Cytology ? OTHR DR: Nikole Luna PROGRAMMING MANAGER ? ORDERED: ??Fine Ndl Asp ? Diagnosis ?? Thyroid, right mid nodule, fine needle aspiration biopsy (cytology): ? -[place] System Classification:? Benign (category 2) ? -Description:? Few benign follicular cell groups, scattered macrophages (some with ?? hemosoderin), colloid, and blood. ?Clinical History Right mid 2.4 cm thyroid nodule FNA biopsy ? Material Received ?? Right mid 2.4 cm thyroid nodule FNA biopsy ? Gross Description Received is 31 cc of clear light pink fluid from which a ThinPrep slide is prepared. Copies To: ?? Violette Vidal MD ?? [facility] Endocrinology ?? [address] ?? [place] [address] ?? [phone] ?? [email or web address] ?? [place] [facility] ?? [address] ?? [place] [address] ?? [phone] ----- ------- Signed (signature on file) Jie Whitley 05/04/24 1105 ? ----- ------- ? END OF REPORT ? us Generic External Data Provider LAB CYTOLOGY ORDE RABLES Final Result [facility] [address] [place] [address] [phone] documented in this encounter Visit Diagnoses Not on filedocumented in this encounter Additional Health Concerns Assessment Noted Time PHQ-9 Depression Total Score: 0 03/31/19 25 10:15 AM EST documented as of this encounter Care Teams Stepdown Nurse Relationship Specialty Start Date End Date Nikole Luna FNP [address] [place] [address] PCP - General Family Medicine 10/16/21 documented as of this encounter
--- OUTSIDE RECORDS SUMMARY | 2024-05-17 18:37 | XMS_ITS | Encounter Summary ---
Author Organization [employer] Address [address] [place] [address] [address] [address] Care Team Providers Care Irradiated Fuel Handler Name Role Phone Nikole Luna Primary Care Provider [phone] Reason for Referral * Consultation (Routine) - Authorized Specialty Diagnoses / Procedures Referred By Camilo jones Referred To Contact Nutrition Diagnoses Essential hypertension Nikole Luna FNP [address] [place] [address] Phone: tel: fax: Referral ID Status Reason Start Date Expiration Date Visits Requested Visits Authorized [id number] Authorized Consult and Treat 05/15/2024 05/15/2025 1 1 Reason for Visit * Reason Comments Follow-up Encounter Details Date Type Department Care Team (Late st Contact Info) Description 05/15/2024 11:15 AM EDT Office Visit [facility] [address] [place] [address] Nikole Luna FNP [address] [place] [address] Essential hypertension (Primary Dx); Dietary counseling; Exercise counseling; Encounter for immunization Social History Tobacco Use Types Packs/Day Years [...] Date Recorded Patient Health Questionnaire-9 Score 0 05/15/2024 Patient Health Questionnaire-9 Score 0 05/15/2024 Last PHQ-9: Questionnaire Data Not on file 0 05/15/2024 Housing Stability Answer Date Recorded What is [...] Date Recorded Patient Health Questionnaire-2 Score 0 05/15/2024 Internet Access Answer Date Recorded Internet Access [...] Sign Reading Time Taken Comments Blood Pressure 128/78 05/15/2024 11:30 AM EDT Pulse 78 05/15/2024 11:14 AM EDT Temperature 36.3 ??C (97.4 ??F) 05/15/2024 11:14 AM E DT Respiratory Rate 20 05/15/2024 11:14 AM EDT Oxygen Saturation 99% 05/15/2024 11:14 AM EDT Inhaled Oxygen Concentration - - Weight 88.3 kg (194 lb 9.6 oz) 05/15/2024 11:14 AM EDT Height 162.6 cm (5' 4 ) 05/15/2024 11:14 AM EDT Body Mass Index 33.4 05/15/2024 11:14 AM EDT documented in this encounter Plan of Treatment Upcoming Encounters Date Type Department Care Team (Late st Contact Info) Description 06/19/2024 10:30 AM EDT Nutrition [facility] DIABETES/NUTRITION [address] [place] [address] Ale Owens, WAYNE [address] [place] [address] 08/16/2024 10:00 AM EDT Office Visit [facility] [address] [place], [place] [phone] Nikole Luna FNP [address] [place], [place] [phone] Scheduled Referrals Name Type Priority Associated Diagnoses Orde r Schedule Referral to Nutrition Therapy Outpatient Referral Routine Essential hypertension Expected: 05/15/2024 (Approximate), Expires: 05/15/2025 documented as of this encounter Procedures Procedure Name Priority Date/Time Associated Diagnosis Comments BASIC METABOLIC PANEL Routine 05/15/2024 12:23 PM EDT Essential hypertension documented in this encounter Results * (ABNORMAL) Basic Metabolic Panel (05/15/2024 12:23 PM EDT) Sodium 141 135 - 145 mmol/L [facility] Potassium 3.7 3.3 - 5.1 mmol/L [facility] Chloride 111(H) 96 - 108 mmol/L [facility] Carbon Dioxide 26 22 - 29 mmol/L [facility] Anion Gap 8(L) 12 - 20 [facility] Urea Nitrogen (BUN) 11 9 - 16 mg/dL [facility] Creatinine, Serum 0.59 0.5 - 1.4 mg/dL [facility] Estimated Glomerular Filt Rate >60 [facility] Comment:Chronic Kidney Disea se: Estimated GFR < 60 mL/min/1.38x5Qpcgmj Kidney Disease: Estimated GFR < 15 mL/min/1.73m2 Glucose 80 60 - 115 mg/dL [facility] Calcium 8.9 8.4 - 10.2 mg/dL [facility] Blood Venous blood specimen / Unknown 05/15/2024 12:23 PM EDT 05/15/2024 2:12 PM EDT [facility] BLOOD ORDERABLES Final Re sult [facility] [address] [place] [address] [phone] documented in this encounter Visit Diagnoses Diagnosis Essential hypertension- Primary Unspecified essential hypertension Dietary counseling Dietary surveillance and counseling Exercise counseling Encounter for immunization documented in this encounter Additional Health Concerns Assessment Noted Time PHQ-9 Depression Total Score: 0 05/16/19 11:20 AM EDT documented as of this encounter Care Teams Irradiated Fuel Handler Relationship Specialty Start Date End Date Nikole Luna FNP [address] [place] [address] PCP - General Family Medicine 10/16/21 documented as of this encounter
--- OUTSIDE RECORDS SUMMARY | 2024-05-17 18:38 | XMS_ITS | Encounter Summary ---
Author Organization [employer] Address [address] [facility] 7t [place] [address] Care Team Providers Care Flight Test Data Acquisition Technician Name Role Phone Cheryl [place] PLATINUMSMITH Primary Care Provider [phone] Reason for Visit * Reason Comments Hypertension Nurse visit BP check Encounter Details Date Type Department Care Team (Latest Contact Info) Description 04/17/2024 11:00 AM EST Clinical Support [facility] [address] [place] [address] Shahla Multani RN Essential hypertension Social History [...] pressure check Preferred language for medical information: Sami Recommendations at last visit were 1. Essential [...] Time Provider Department Center 05/15/2024 11:15 AM KENNETH Nichols MEDICINE [facility] Shahla Multani RN * Alicia Fields RN - 04/17/2024 11:00 AM EST TC placed to [phone] in regards to below message. Patient advised new RX for 2 tabs daily of benicar has been sent to the pharmacy. Patient verbalized understanding and did not have any further questions. Patient to f/u PRN. documented in this encounter Plan of Treatment Upcoming Encounters Date Type Department Care Team (Late st Contact Info) Description 06/19/2024 10:30 AM EDT Nutrition [facility] DIABETES/NUTRITION [address] [place] [address] Ale Owens, WAYNE [address] [place] [address] 08/16/2024 10:00 AM EDT Office Visit [facility] [address] [place] [address] [place] [facility] [address] [place] [address] documented as of this encounter Visit Diagnoses Diagnosis Essential hypertension Unspecified essential hypertension documented in this encounter Additional Health Concerns Assessment Noted Time PHQ-9 Depression Total Score: 0 03/31/19 10:15 AM EST documented as of this encounter Care Teams Flight Test Data Acquisition Technician Relationship Specialty Start Date End Date Nikole Luna FNP [address] [place] [address] PCP - General Family Medicine 10/16/21 documented as of this encounter
--- OUTSIDE RECORDS SUMMARY | 2024-05-17 18:38 | XMS_ITS | Encounter Summary ---
Author Organization [employer] Address [address] [facility] 7t [place] [address] Care Team Providers Care Cpht Name Role Phone Cheryl [facility] Primary Care Provider [phone] Encounter Details Date Type Department Care Team (Latest Contact Info) Description 05/15/2024 Travel Social History Tobacco Use Types Packs/Day [...] Info) Description 06/19/2024 10:30 AM EDT Nutrition [facility] DIABETES/NUTRITION [address] [place] [address] [place] [address] 08/16/2024 10:00 AM EDT Office Visit [facility] MEDICINE [address] [place] [address] Nikole Luna FNP [address] [place] [address] documented as of this encounter Visit Diagnoses Not on filedocumented in this encounter Additional Health Concerns Assessment Noted Time PHQ-9 Depression Total Score: 0 05/16/19 11:20 AM EDT documented as of this encounter Care Teams Cpht Relationship Specialty Start Date End Date Nikole Luna FNP [address] [place] [address] PCP - General Family Medicine 10/16/21 documented as of this encounter
--- OUTSIDE RECORDS SUMMARY | 2024-05-17 18:38 | XMS_ITS | Encounter Summary ---
Author Organization [employer] Address [address] [place] [address] [address] [place] [address] Care Team Providers Care Secondary School Teacher Name Role Phone Nikole Luna [facility] Primary Care Provider [phone] Encounter Details Date Type Department Care Team (Late st Contact Info) Description 11/23/[address] [facility] MEDICINE [address] [place] [address] Kiley Arriaga Social History Tobacco Use Types [...] Info) Description 06/19/2024 10:[address] [facility] DIABETES/NUTRITION [address] [place] [address] [place] [address] 08/16/2024 10:00 AM EDT Office Visit [facility] MEDICINE [address] [place] [address] CherylNikole [facility] [address] [place] [address] documented as of this encounter Procedures Procedure Name Priority Date/Time Associated Diagnosis Comments PAP/HPV Routine 07/02/2020 PAP/HPV Routine 04/17/2020 documented in this encounter Results * Hm Pap Smear (07/02/2020) Pap Negative for intraephithelial lesion or malignancy Negative for intraephithelial lesion or malignancy, Other HPV Undetected us Historical Provider HEALTH MAINTENANCE Final Result * Hm Pap Smear (04/17/2020) Pap Other Negative for intraephithelial lesion or malignancy, Other HPV Undetected Narrative Kiley Arriaga - 04/17/2020 Unsatisfactory Historical Provider HEALTH MAINTENANCE Final Result documented in this encounter Visit Diagnoses Not on filedocumented in this encounter Care Teams Secondary School Teacher Relationship Specialty Start Date End Date Nikole Luna FNP [address] [place] [address] PCP - General Family Medicine 10/16/21 documented as of this encounter
--- OUTSIDE RECORDS SUMMARY | 2024-05-17 18:38 | XMS_ITS | Clinical Summary ---
Author Organization [email or web address] Address [address] [facility] 7t [place] [address] Care Team Providers Care Structural Designer Name Role Phone Cheryl [facility] Primary Care Provider [phone] Allergies No known active allergies Medications olmesartan (Benicar) 5 MG tabletIndication s:Essential hypertension Take 1 tablet (5 mg) by mouth Once per day. 30 tablet 11 03/31/19 25 026 Active amLODIPine (Norvasc) 5 MG tabletIndication s:Essential hypertension Take 1 tablet (5 mg) by mouth Once per day. 90 tablet 05/02/19 25 025 Active olmesartan (Benicar) 5 MG tabletIndication s:Essential hypertension Take 2 tablets (10 mg) by mouth Once per day. 60 tablet 11 04/20/19 25 025 Discontinued Active Problems Problem Noted Date Diagnosed Date Abnormal uterine bleeding 05/27/2023 Overview (05/27/2023): Long h/o of prolonged menses Had endometrial biopsy in June 2020 with [facility]; took some sort of pill x a month that stopped bleeding I recommend she call her insulation engineman today to get appt within 2 weeks to establish a terminal press operator plan for her bleeding (such as daily [...] for some time for which midwives at [facility] gave her an oral medication This bleeding started prior to her tubal ligation on 08/22 and has continued daily since then I attempted to schedule the patient a follow-up with Dr. Barboza, I was placed on voicemail, I left a message for the nursing staff to convey the circumstances of admission to Dr. Barboza. And asked my biomedical photographer to schedule her a follow- up appointment, follow-up CBC will be done on Wednesday norethindrone to start tomorrow. Patient is aware of these instructions Encounters Date Type Department Care Team Description 05/15/2024 11:15 AM EDT Office Visit [address] [address] Nikole Luna FNP Essential hypertension (Primary Dx); Dietary counseling; Exercise counseling; Encounter for immunization 05/15/2024 Travel 05/03/2024 Orders Only GENERIC EXTERNAL DATA DEPARTMENT Provider, Generic External Data 05/02/[address] [address] Nikole Luna FNP Labs (I informed the patient, that an order for MMR titers was sent to the [facility] lab. She stated that she would have them done on 05/03/24.) 05/01/2024 11:00 AM EDT Clinical Support [address] [address] Marii Ortiz, RN Essential hypertension 05/01/[address] [address] Marii Ortiz, edge dyer Orders 05/01/[address] [place] [address] Marii Ortiz RN Essential hypertension 05/01/2024 Travel 04/17/2024 11:00 AM EST Clinical Support [address] [address] Shahla Multani RN Essential hypertension 04/17/2024 Travel 03/31/2024 10:15 AM EST Office Visit [address] [address] Nikole Luna FNP Essential hypertension (Primary Dx); Dizziness; Nonintractable episodic headache, unspecified headache type 03/31/2024 Travel 03/20/2024 Patient Outreach [facility] [place] [address] Nikole Luna FNP Pre-visit Planning (SDOH screening negative and tobacco screening negative) from Last 3 Months Immunizations Name Administration Dates Next Due Hep A, Adult 2012,05/26/2011 Hep B, adult 2012,07/08/2011,05/26/2011 Influenza, IIV3, injectable 11/14/2013 Influenza, Split (incl. howard fied surface antigen) 11/21/2012 Influenza, seasonal, injecta ble, preservative free 05/15/2024 Pfizer Covid-19 Vaccine 12+ 05/15/2024 Pneumococcal Conjugate PCV 20 05/15/2024 Tdap 07/28/2023,05/26/2011 Family History Medical History Relation [...] Mass Index 33.4 05/15/2024 11:14 AM EDT Plan of Treatment Upcoming Encounters Date Type Department Care Team (Late st Contact Info) Description 06/19/2024 10:30 AM EDT Nutrition [facility] DIABETES/NUTRITION [address] [place] [address] Ale Owens, WAYNE [address] [place] [address] 08/16/2024 10:00 AM EDT Office Visit [facility] MEDICINE [address] [place] [address] Dalton, Nikole, ACTIVITY THERAPY SPECIALIST [address] [place] [address] Health Maintenance Due Date Last Done Comments CT Colonography 1970 FIT DNA/Cologuard 1970 FIT 1970 FOBT 1970 HIV Screening 1970 Sigmoidoscopy 1970 Zoster Vaccines (1 of 2) 2020 Alcohol/Substance Use Screening 07/27/2024 07/28/2023 Mammogram 09/01/2024 09/02/2023, 07/0 07/2022, 02/28/2020, Additional history exists SDOH Screening 03/31/2025 03/31/2024 Depression Screening 05/15/2025 05/15/2024, 05/16/19 25 Tobacco Screening 05/15/2025 05/15/2024 Cervical Cancer Screening 07/02/2025 HPV/Cotest 07/02/2025 07/02/2020, 0502/2020, 07/02/2020, Additional history exists Pap Smear 07/02/2025 [...] 07/08/2011, 05/26/2011 Hepatitis C Screening Completed 04/16/2021 COVID-19 Vaccine Completed 05/15/2024, , 07/23/2020 Influenza Vaccine Completed 05/15/2024, , 11/21/2012 Pneumococcal Vaccine: 50+ Years Completed 05/15/2024 HIB Vaccines Aged Out No longer eligi [...] Routine 05/15/2024 12:23 PM EDT Essential hypertension FINE NEEDLE ASPIRATION Routine 05/03/2024 10:32 AM EDT BI MAMMOGRAM SCREENING TOMOSYNTHESIS BILATERAL Routine 09/02/2023 11:23 AM EDT LIPID PANEL, STANDARD Routine 08/04/2023 12:08 PM EDT Class 1 obesity due to excess calories with body mass index (BMI) of 34.0 to 34.9 in adult, unspecified whether serious comorbidity present ZZZ HISTORICAL HEPATITIS C AB W/REFL TO HCV RNA, QN, PCR Routine 04/16/2021 2:33 PM EST HM COLONOSCOPY Routine 02/24/2021 HM PAP/HPV Routine 07/02/2020 from Last 3 Months or Most Recently Relevant to Health Maintenance Results * (ABNORMAL) Basic Metabolic Panel (05/15/2024 12:23 PM EDT) Sodium 141 135 - 145 mmol/L [facility] Potassium 3.7 3.3 - 5.1 mmol/L [facility] Chloride 111(H) 96 - 108 mmol/L [facility] Carbon Dioxide 26 22 - 29 mmol/L [facility] Anion Gap 8(L) 12 - 20 [facility] Urea Nitrogen (BUN) 11 9 - 16 mg/dL [facility] Creatinine, Serum 0.59 0.5 - 1.4 mg/dL [facility] Estimated Glomerular Filt Rate >60 [facility] Comment:Chronic Kidney Disea se: Estimated GFR < 60 mL/min/1.95f8Gostnm Kidney Disease: Estimated GFR < 15 mL/min/1.73m2 Glucose 80 60 - 115 mg/dL [facility] Calcium 8.9 8.4 - 10.2 mg/dL [facility] Blood Venous blood specimen / Unknown 05/15/2024 12:23 PM EDT 05/15/2024 2:12 PM EDT [facility] LAB BLOOD ORDERABLES Final Re sult [facility] [address] [place] [phone] * Fine needle aspiration (05/03/2024 10:32 AM EDT) 05/03/2024 10:3 2 AM EDT 05/04/2024 6:50 AM EDT Narrative [facility] - 05/04/2024 11:05 AM EDT ----- ------- Name: Porrata,Sayra ?Age/Sex: 53/F ? : 1970 Unit#: [id number] ?? Attend Dr: Violette Vidal MD ?Re05/03/24 ?Status: DEP REF ? Location: HO.US ? Disch: ? ----- ------- SPEC : [id number] ? RECD: 05/04/24 ? STATUS: ??SOUT ? REQ NUM: [id number] ? FABIOLA: 05/03/24-1031 ? SUBM DR: Violette Vidal MD ? ENTERED: ??05/04/24 ?SP TYPE: Cytology ? OTHR DR: Nikole Luna ACTIVITY THERAPY SPECIALIST ? ORDERED: ??Fine Ndl Asp ? Diagnosis ?? Thyroid, right mid nodule, fine needle aspiration biopsy (cytology): ? -[place] System Classification:? Benign (category 2) ? -Description:? [...] Copies To: ?? Violette Vidal MD ?? [facility] Endocrinology ?? [address] ?? [place] [address] ?? [phone] ?? [email or web address] ?? Nikole Luna ?? [address] [facility] ?? [place] [address] ?? [phone] ----- ------- Signed (signature on file) Jie Whitley 05/04/241104 ? ----- ------- ? END OF REPORT ? us Generic External Data Provider LAB CYTOLOGY ARMIDA BARRIOS Final Result [facility] [address] [place] [address] [phone] * BI Mammogram Screening Tomosynthesis Bilateral (09/02/2023 11:23 AM EDT) Anatomical Region Laterality Modality Breast Bilateral Mammography 09/02/2023 11:2 3 AM EDT Narrative 09/27/2023 10:38 PM EDT ? [facility] [place] ? [address] ?[place] [address] ? Mammography Report ? Signed ? Patient: Porrata,Sayra ?MR#: [id number] ?? [id number] ? : 1970 ?Acct:[id number] ? Age/Sex: 52 / F ?ADM Date: 09/02/23 ? Loc: HO.MAMMO ? Attending DrKilo Freedman ? Ordering Physician: Lucinda Palomo MD ?Results: ?? 1Negative ? Date of Service: 09/02/23 ?Follow Up: 1 Year From Orig ?? inal Mammogram ? Procedure(s): MM tomosynthesis screening BI ?? Accession Number(s): [id number] ? cc: Lucinda Palomo MD; Nikole Luna ACTIVITY THERAPY SPECIALIST ? EXAMINATION: ?? MM SCREENING DIGITAL BREAST [...] by Concepción Jama MD in OV> ? 09/27/235 ? DD/ 1123 ? TD/TT: ? Shuttle Route Vehicle Operator: ? Procedure Note Franco Marx - 09/27/2023 [facility] [address] [place] [address] [place] [address] Mammography Report Signed Patient: Abiodun Pringle#: [id number] : 1970Acct:[id number] Age/Sex: 52 / FADM Date: 09/02/23 Loc: SILVIO Attending Dr: Marie Freedman Ordering Physician: Lucinda Palomoesults: 1Negative Date of Service: 09/02/23Follow Up: 1 Year From Orig inal Mammogram Procedure(s): MM tomosynthesis screening BI Accession Number(s): [id number] cc: Lucinda Palomo MD; [facility] ACTIVITY THERAPY SPECIALIST EXAMINATION: MM SCREENING DIGITAL BREAST TOMOSYNTHESIS, BILATERAL [...] date for their next mammogram. Dictated By: Concepción Jama MD Signed By: <Electronically signed by Concepción Jama MD in OV> 09/27/235 DD/ 1123 TD/TT: Shuttle Route Vehicle Operator: Lucinda Arceo MD IMG BI PROCEDURES Fin al Result * (ABNORMAL) Lipid Panel, Standard (08/04/2023 12:08 PM EDT) Triglycerides 50 <150 mg/dL [facility] Comment:Desirable Triglyceri de: less than 150 mg/dLBorderline High Triglyceride 150-199 mg/dLHigh Triglyceride: 200-499 mg/dLVery High Triglyceride: greater than or equal to 5OO mg/dL Cholesterol 185 <200 mg/dL [facility] Comment:Desirable Cholestero l: less than 200 mg/dLBorderline High Cholesterol: 200-239 mg/dLHigh Cholesterol: greater than 239 mg/dL LDL Cholesterol Calculated 124(H) <100 mg/dL [facility] Comment:Desirable LDL: less than 100 mg/dLNear Optimal/Above Optimal LDL: 110- 129 mg/dLBorderline High LDL: 130-159 mg/dLHigh LDL: 160-189 mg/dLVery High LDL: greater than or equal to 190 mg/dL HDL Cholesterol 51 >40 mg/dL [facility] Comment:Desirable HDL: great er than 40 mg/dL Note: This HDL assay may give artificially low results in patients with liver disease. Blood Venous blood specimen / Unknown 08/04/2023 12:08 PM EDT 08/04/2023 1:14 PM EDT [facility] ACTIVITY THERAPY SPECIALIST LAB BLOOD ORDERABLES Final Re sult [facility] [address] [place] [address] [phone] * HEPATITIS C AB W/REFL TO HCV RNA, QN, PCR (04/16/2021 2:33 PM EST) HEPATITIS C ANTIBODY NON-REACT CLAU NON-REACT CLAU [facility] INDEX 0.06 <1.00 [facility] Comment: ?? HCV antibody was non-reactive. There is no laboratory ?? evidence of HCV infection. ?? In most cases, no further action is required. However, if recent HCV exposure is suspected, a test for HCV RNA (test code 08073) is suggested. ?? For additional information please refer to http://education.[employer]/faq/CLE82t6 (This link is being provided for informational/ educational purposes only.) ?? 04/16/2021 2:33 PM EST Marie Freedman SWABBER HISTORICAL/NON ORDERABLE LABS F inal Result [facility] [address] * (ABNORMAL) Colonoscopy (02/24/2021) Colonoscopy Abnormal( A) Normal Comment:Repeat in 5 years Historical Provider MD HEALTH MAINTENANCE Final Result * Hm Pap Smear (07/02/2020) Pap Negative for intraephithelial lesion or malignancy Negative for intraephithelial lesion or malignancy, Other HPV Undetected Historical Provider MD HEALTH MAINTENANCE Final Result from Last 3 Months or Most Recently Relevant to Health Maintenance Insurance [facility] Care Teams Structural Designer Relationship Specialty Start Date End Date Nikole Luna FNP [address] [place] [id number] PCP - General Family Medicine 10/16/21
--- OUTSIDE RECORDS SUMMARY | 2024-05-17 18:38 | XMS_ITS | Encounter Summary ---
Author Organization [employer] Address [address] [facility] 7t [place] [address] Care Team Providers Care Food Processing Plant Manager Name Role Phone Cheryl [facility] Primary Care Provider [phone] Encounter Details Date Type Department Care Team [...] Info) Description 06/19/2024 10:30 AM EDT Nutrition [facility] DIABETES/NUTRITION [address] [place] [address] [place] [address] 08/16/2024 10:00 AM EDT Office Visit [facility] MEDICINE [address] [place] [address] Nikole Luna FNP [address] [place] [address] documented as of this encounter Visit Diagnoses Not on filedocumented in this encounter Additional Health Concerns Assessment Noted Time PHQ-9 Depression Total Score: 0 03/31/19 10:15 AM EST documented as of this encounter Care Teams Food Processing Plant Manager Relationship Specialty Start Date End Date Nikole Luna FNP [address] [place] [address] PCP - General Family Medicine 10/16/21 documented as of this encounter
--- OUTSIDE RECORDS SUMMARY | 2024-05-17 18:38 | XMS_ITS | Encounter Summary ---
Author Organization [employer] Address [address] [facility] [address] [place] [address] Care Team Providers Care Laminating Machine Operator Helper Name Role Phone Cheryl [facility] Primary Care Provider [phone] Reason for Visit * Reason Onset Date Comments Med Refill 05/01/2024 Encounter Details Date Type Department Care Team (Late st Contact Info) Description 05/01/2024 Refill [facility] MEDICINE [address] [place], [place] [phone] Marii Ortiz RN [address] [place] [address] Essential hypertension Social History Tobacco Use Types [...] Info) Description 06/19/2024 10:30 AM EDT Nutrition [facility] DIABETES/NUTRITION [address] [place] [address] [place] [address] 08/16/2024 10:00 AM EDT Office Visit [facility] MEDICINE [address] [place] [address] Nikole Luna FNP [address] [place] [address] documented as of this encounter Visit Diagnoses Diagnosis Essential hypertension Unspecified essential hypertension documented in this encounter Additional Health Concerns Assessment Noted Time PHQ-9 Depression Total Score: 0 03/31/19 10:15 AM EST documented as of this encounter Care Teams Laminating Machine Operator Helper Relationship Specialty Start Date End Date Lehighton KENNETH Agustin [address] [place] [address] PCP - General Family Medicine 10/16/21 documented as of this encounter
--- OUTSIDE RECORDS SUMMARY | 2024-05-17 18:38 | XMS_ITS | Encounter Summary ---
Author Organization [employer] Address [address] [facility] 7[address] [place] [address] Care Team Providers Care Harpoon Engagement Planning Operator Name Role Phone Cheryl [facility] Primary Care Provider [phone] Reason for Visit * Reason Onset Date Comments Lab Orders 05/01/2024 Encounter Details Date Type Department Care Team (Late st Contact Info) Description 05/01/2024 Telephone [facility] MEDICINE [address] [place], [place] [phone] Marii Ortiz RN [address] [place] [address] Lab Orders Social History Tobacco Use Types [...] Info) Description 06/19/2024 10:30 AM EDT Nutrition [facility] DIABETES/NUTRITION [address] [place] [address] Ale Owens, RD [address] [place] [address] 08/16/2024 10:00 AM EDT Office Visit [facility] MEDICINE [address] [place] [address] CherylNikole hutchinson, VARYING EXCEPTIONALITIES TEACHER [address] [place] [address] Scheduled Orders Name Type Priority Associated Diagnoses [...] documented as of this encounter Care Teams Harpoon Engagement Planning Operator Relationship Specialty Start Date End Date Nikole Luna FNP [address] [place] [address] PCP - General Family Medicine 10/16/21 documented as of this encounter
--- OUTSIDE RECORDS SUMMARY | 2024-05-17 18:38 | XMS_ITS | Encounter Summary ---
Author Organization [employer] Address [address] [facility] 7[address] [place] [address] Care Team Providers Care Guardian Family Member Name Role Phone Cheryl Nikole [facility] [employer] Primary Care Provider [phone] Reason for Visit * Reason Comments Hypertension Encounter Details Date Type Department Care Team (Latest Contact Info) Description 05/01/2024 11:00 AM EDT Clinical [address] [facility] MEDICINE [address] [place], [place] [phone] Marii Ortiz RN [address] [place], [place] [phone] Essential hypertension Social History Tobacco Use Types [...] Description 06/19/2024 10:[address] [facility] DIABETES/NUTRITION [address] [place] [address] [place] [address] 08/16/2024 10:00 AM EDT Office Visit [facility] MEDICINE [address] [place] [address] Nikole Luna FNP [address] [place] [address] documented as of this encounter Visit Diagnoses Diagnosis Essential hypertension Unspecified essential hypertension documented in this encounter Additional Health Concerns Assessment Noted Time PHQ-9 Depression Total Score: 0 03/31/19 25 10:15 AM EST documented as of this encounter Care Teams Guardian Family Member Relationship Specialty Start Date End Date Nikole Luna FNP [address] [place] [address] PCP - General Family Medicine 10/16/21 documented as of this encounter
--- OUTSIDE RECORDS SUMMARY | 2024-05-17 18:38 | XMS_ITS | Encounter Summary ---
Author Organization [employer] Address [address] [facility] 7t [place] [address] Care Team Providers Care Manufacturing Director Name Role Phone Cheryl [facility] Primary Care Provider [phone] Encounter Details Date Type Department Care Team [...] Info) Description 06/19/2024 10:30 AM EDT Nutrition [facility] DIABETES/NUTRITION [address] [place] [address] [place] [address] 08/16/2024 10:00 AM EDT Office Visit [facility] MEDICINE [address] [place] [address] Nikole Luna FNP [address] [place] [address] documented as of this encounter Visit Diagnoses Not on filedocumented in this encounter Additional Health Concerns Assessment Noted Time PHQ-9 Depression Total Score: 0 03/31/19 10:15 AM EST documented as of this encounter Care Teams Manufacturing Director Relationship Specialty Start Date End Date Nikole Luna FNP [address] [place] [address] PCP - General Family Medicine 10/16/21 documented as of this encounter
--- OUTSIDE RECORDS SUMMARY | 2024-05-17 18:38 | XMS_ITS | Encounter Summary ---
Author Organization [employer] Address [address] [facility] 7[address] [place] [address] Care Team Providers Care Foreclosure Field Inspector Name Role Phone Brainerd [facility] Primary Care Provider [phone] Reason for Visit * Reason Onset Date Comments Labs 05/02/2024 I informed the p atient, that an order for MMR titers was sent to the [facility] lab. She stated that she would have them done on 05/03/24. Encounter Details Date Type Department Care Team ([facility] st Contact Info) Description 05/02/2024 Telephone [facility] MEDICINE [address] [place], [place] [phone] [facility] [address] [place], [place] [phone] Labs (I informed the patient, that an order for MMR titers was sent to the [facility] lab. She stated that she [...] for MMR titers was sent to the [facility] lab. She stated that she would have them done on 05/03/24. documented in this encounter Plan of Treatment Upcoming Encounters Date Type Department Care Team (Late st Contact Info) Description 06/19/2024 10:30 AM EDT Nutrition [facility] DIABETES/NUTRITION [address] [place] [address] Ale Owens, WAYNE [address] [place] [address] 08/16/2024 10:00 AM EDT Office Visit [facility] MEDICINE [address] [place] [address] Nikole Luna FNP [address] [place] [address] documented as of this encounter Visit Diagnoses Not on filedocumented in this encounter Additional Health Concerns Assessment Noted Time PHQ-9 Depression Total Score: 0 03/31/19 25 10:15 AM EST documented as of this encounter Care Teams Foreclosure Field Inspector Relationship Specialty Start Date End Date Nikole Luna FNP [address] [place] [address] PCP - General Family Medicine 10/16/21 documented as of this encounter
== END 2024-05-17 15:44 | disposition home or self-care (01) ==
LOC: HO.ENCR 15:31
PROVIDERS: PCP Registered Nurse; Visit Provider Student in an Organized Health Care Education/Training Program
DX: E05.90 Thyrotoxicosis, unspecified without thyrotoxic crisis or storm (principal); E05.20 Thyrotoxicosis with toxic multinodular goiter without thyrotoxic crisis or storm
CPT/HCPCS: 99213

== ENCOUNTER → 2024-05-17 15:30 | Outpatient (BNVA) | payer OTHER, SELFPAY | PROVIDERS: PCP Registered Nurse; Visit Provider Student in an Organized Health Care Education/Training Program | DX: E05.20 Thyrotoxicosis with toxic multinodular goiter without thyrotoxic crisis or storm (principal) | CPT/HCPCS: 99212 ==

== ENCOUNTER 2024-08-17 09:39 | Outpatient (AMB) | payer OTHER, SELFPAY ==
[2024-08-17 09:42] VITALS: BP 140/94; PULSE 84; O2SAT 98; BMI 32.3
--- NOTE | 2024-08-17 09:42 | A.OFFVIS_ITS ---
Vital Signs 3 08/17/24 09:42 Height 5 ft 4 in Weight 188 lb 0.869 oz BMI 32.3 BP 140/94 H Blood Pressure Location Lt brachial Pulse 84 Pulse Source Pulse Oximeter Pulse Oximetry (%) 98 Oxygen Delivery Method Room Air Intake Visit Reasons: Subclinical hyperthyroidism Intake Note: Patient present today for Subclinical hyperthyroidism office visit. Plate Worker Helper Required: Yes Plate Worker Helper Language: Mobile Sales Consultant Services: Plate Worker Helper Present Plate Worker Helper Name: Vasquez [id number] Information Interpreted: non-clinical & clinical Accompanied by: Self / Same As Patient Allergies No Known Allergies (No Known Allergies*) Allergy (Verified 08/17/24 09:45) Medication List - Last Reconciled 08/17/24 by Violette Vidal MD No Known Home Meds HPI Comments Details: 53 YO F with who is seen for follow up of subclinical hyperthyroidism and multinodular goiter. HPI Has had thyroid nodules at least dating back to 2015. Apparently she did have FNA of the dominant right mid lobe 2.4 cm nodule back in November 2015 per the ultrasound report, however I do not have these results. So unclear if it was benign at that time. Thyroid ultrasound from April 2021, showed stable size of the dominant right mid lobe nodule which is mixed cystic solid, commented on as isoechoic with no other suspicious features, TR 2 nodule. Another right superior 1.1 cm new nodule TR 3 category. The subcentimeter right mid lobe nodule. A 1.1 cm right inferior TR 4 category nodule noted. A left superior solid, isoechoic nodule with echogenic foci, TR 4 category which had increased in size from subcentimeter in 2016 to 1 cm in size. Thyroid ultrasound from July 2023 showed stable size of the right midpole nodule which is when I reviewed the images mixed cystic solid, hypoechoic, TR 3 category. Right upper pole spongiform nodule remains stable in size. Right midpole subcentimeter nodule also stable in size. Right lower subcentimeter nodule TR 4 category also stable in size. The left superior TR 4 category nodule that was previously measured as 1 cm now measuring subcentimeter in size. Previously had normal thyroid function testing prior to summer. Since July 2023 she has been noted to have low TSH levels ranging anywhere from 0.11- 0.18. Normal free T4. Thyrotropin receptor antibody negative. Most recent labs done 01/12/2024 showed TSH low of 0.11, normal free T4 of 0.86. Thyroid uptake and scan from 12/02/2023, I reviewed the images myself which shows no increased uptake, however heterogenous areas of uptake noted with photopenic areas in the right upper pole, as well as the left upper pole and left lateral inferior pole. Currently denies any dysphagia or hoarseness of voice. Denies sensation of swelling in the neck or difficulty breathing while lying flat. [Denies] any tenderness in the neck. Does report intermittent palpitations. Denies any , tremors, weight loss, frequent bowel movements. Denies any ocular complaints, blurred or double vision. Denies hair loss, dry skin, heat or cold intolerance, weight gain, confusion. [Denies] any history of head or neck irradiation. [Denies] any family history of thyroid cancer or thyroid disease. Denies use of kelp or seaweed or recent exposures iodinated contrast dye No use of biotin 05/03/2024: Underwent FNA biopsy of the right midpole 2.4 cm nodule with benign cytology, [place] category 2. Interval history Denies tremors , reports intermittent palpitations. Denies any heat intolerance. Heart rate is normal. She was supposed to do blood work prior to the appointment today, forgot to do blood work. Physical exam General: sitting comfortably in no acute distress HEENT: normocephalic/atraumatic, Neck: supple, palpable 2 cm right-sided nodule Cardiac: normal heart sounds Pulm: normal breath sounds B/L, no added breath sounds Abd: not distended, no tenderness Extremities: no edema, no signs of myxedema Neuro: AAO x3, Speech: normal, no facial droop, moving all 4 extremities Laboratory Tests 01/15/20 04/23/20 08/04/23 17:43 09:42 12:08 TSH 0.55 0.58 0.12 L Free T4 0.82 Free T3 TSH Receptor Ab 10/22/23 01/12/24 12:47 11:31 TSH 0.18 L 0.11 L Free T4 0.78 0.86 Free T3 3.6 TSH Receptor Ab <1.00 THYROID UPTAKE AND SCAN 12/02/23 CLINICAL INFORMATION: Hyperthyroidism. COMPARISON: Thyroid ultrasound done on 08/19/2023. TECHNIQUE: Following the oral administration of 275 microcuries of I-123 sodium iodide, thyroid uptake was performed and expressed as a percentage of the administrated dose. Gamma scintillation camera images of the thyroid in the anterior and right and left anterior oblique views were obtained using a pinhole collimator following the administration of 10.0 mCi Tc-99m pertechnetate. FINDINGS: The uptake is 4.78% at 4 hours and 9.52% at 24 hours (Normal radioiodine uptake at 4 to 6 hours is about 5-15% and at 24 hours is 10% to 30%). The radioiodine uptake is slightly below normal. The radiopertechnetate thyroid scintigram demonstrates the thyroid gland heterogenous with the right lobe larger than the left. There is heterogenous tracer activity present bilaterally associated with multiple photopenic defects with the dominant photopenia seen involving mid part of the right lobe, corresponding to the dominant mixed echogenic nodule measuring 2.37 cm seen on the prior thyroid ultrasound dated 08/19/2023. The trapping function appears normal. NM/NM thyroid w uptake IMPRESSION: 1. The radioiodine uptake at 4 hours and at 24 hours is slightly below normal. 2. Abnormal morphologic appearance of the thyroid gland showing features consistent with multinodular gland, similar to prior thyroid ultrasound done on 08/19/2023. Electronically signed by: Chandrika De Paz MD 01/07/2024 11:20 AM [facility] US THYROID 08/19/23 CLINICAL INFORMATION: Hyperthyroidism. History of nodules. COMPARISON: Thyroid ultrasound 05/07/2021 and 11/18/2015. Ultrasound-guided thyroid biopsy 11/29/2015. TECHNIQUE: Linear transducer grayscale and color Doppler examination with attention to the region of the thyroid. FINDINGS: SIZE: Measurements of the thyroid lobes and nodules are given in sagittal, anteroposterior and transverse dimensions respectively. Right Thyroid Lobe: 5.3 x 2.1 x 2.1 cm, volume 12.3 mL. Previously 6.0 x 2.5 x 2.6 cm, volume 20.4 mL. Parenchyma: The gland echotexture is heterogeneous. Thyroid vascularity is increased. Left Thyroid Lobe: 5.0 x 1.3 x 1.4 cm, volume 4.9 mL. Previously 5.3 x 1.4 x 1.8 cm, volume 7.0 mL. Parenchyma: The gland echotexture is heterogeneous. Thyroid vascularity is normal. Isthmus: 0.3 cm in maximum AP dimension. Previously 0.3 cm. Estimated total number of nodules greater than or equal to 1 cm: 2. [place] nodules are described as follows: 1. Location: Right mid pole. Size: 2.4 x 1.7 x 1.8 cm, volume 3.8 mL. Previously: 2.2 x 2.2 x 1.8 cm, volume 4.6 mL. Nodule characteristics: Composition: Solid/almost completely solid (2). Echogenicity: Isoechoic (1). Shape: Not taller than wide (0). Margins: Smooth (0). Echogenic Foci: None (0). ACR TI-RADS total points: 3 Previous: 2 ACR TI-RADS category: 3 Previous: 2 Significant change in size (>/= 20% in 2 dimensions and minimal increase of 2 mm or 50% or greater increase in volume): No Change in features: No Change in ACR TI-RADS risk category: Yes 2. Location: Right upper pole. Size: 1.2 x 0.7 x 0.9 cm, volume 0.4 mL. Previously: 1.1 x 0.9 x 0.7 cm, volume 0.4 mL. Nodule characteristics: Composition: Spongiform (0). ACR TI-RADS total points: 0 Previous: 3 ACR TI-RADS category: 1 Previous: 3 Significant change in size (>/= 20% in 2 dimensions and minimal increase of 2 mm or 50% or greater increase in volume): No Change in features: Yes. Appearing spongiform in the current ultrasound. Change in ACR TI-RADS risk category: Yes 3. Location: Right mid pole. Size: 0.7 x 0.4 x 0.7 cm, volume 0.1 mL. Previously: 0.9 x 0.4 x 0.6 cm, volume 0.1 mL. Nodule characteristics: Composition: Mixed cystic and solid (1). Echogenicity: Isoechoic (1). Shape: Not taller than wide (0). Margins: Ill-defined (0). Echogenic Foci: None (0). ACR TI-RADS total points: 2 Previous: 2 ACR TI-RADS category: 2 Previous: 2 Significant change in size (>/= 20% in 2 dimensions and minimal increase of 2 mm or 50% or greater increase in volume): No Change in features: No Change in ACR TI-RADS risk category: No 4. Location: Right lower pole. Size: 0.6 x 0.6 x 0.8 cm, volume 0.2 mL. Previously: 1.1 x 0.9 x 0.9 cm, volume 0.5 mL. Nodule characteristics: Composition: Solid/almost completely solid (2). Echogenicity: Hypoechoic (2). Shape: Not taller than wide (0). Margins: Ill-defined (0). Echogenic Foci: None (0). ACR TI-RADS total points: 4 Previous: 3 ACR TI-RADS category: 4 Previous: 3 Significant change in size (>/= 20% in 2 dimensions and minimal increase of 2 mm or 50% or greater increase in volume): No Change in features: No Change in ACR TI-RADS risk category: Yes 5. Location: Left upper pole. Size: 0.8 x 0.6 x 0.8 cm, volume 0.2 mL. Previously: 1.0 x 0.6 x 0.4 cm, volume 0.1 mL. Nodule characteristics: Composition: Solid/almost completely solid (2). Echogenicity: Hypoechoic (2). Shape: Not taller than wide (0). Margins: Ill-defined (0). Echogenic Foci: None (0). ACR TI-RADS total points: 4 Previous: 6 ACR TI-RADS category: 4 Previous: 4 Significant change in size (>/= 20% in 2 dimensions and minimal increase of 2 mm or 50% or greater increase in volume): No Change in features: Yes. Previously described echogenic foci are not seen. Change in ACR TI-RADS risk category: Yes NODES: No lymphadenopathy is seen in the tissue surrounding the thyroid gland. US/US thyroid IMPRESSION: Enlarged, heterogeneous thyroid gland with multiple nodules. 1. 2.4 cm TR 3 nodule in the right mid pole. 2. 1.2 cm spongiform nodule in the right upper pole. 3. 0.7 cm TR 2 nodule in the right mid pole. 4. 0.8 cm TR 4 nodule in the right lower pole. 5. Single 0.8 cm TR 4 nodule in the left upper pole. If not previously obtained, FNA of the 2.4 cm TR 3 nodule in the right mid pole is recommended. Additional nodules could be follow-up by imaging in one year. US THYROID 04/2021 CLINICAL INFORMATION: Nontoxic single thyroid nodule. COMPARISON: Ultrasound soft tissue head/neck thyroid dated 11/18/2015. TECHNIQUE: Linear transducer grayscale and color Doppler examination with attention to the region of the thyroid. FINDINGS: SIZE: Measurements of the thyroid lobes and nodules are given in sagittal, anteroposterior and transverse dimensions respectively. Right Thyroid Lobe: 6.0 x 2.5 x 2.6 cm, volume 20.4 mL. Previously 5.8 x 2.8 x 2.8 cm, volume 24.0 mL. Parenchyma: The gland echotexture is homogeneous. Thyroid vascularity is increased. Left Thyroid Lobe: 5.3 x 1.4 x 1.8 cm, volume 7.0 mL. Previously 4.5 x 1.5 x 1.6 cm, volume 5.8 mL. Parenchyma: The gland echotexture is homogeneous. Thyroid vascularity is normal. Isthmus: 0.3 cm in maximum AP dimension. Previously 0.3 cm. Estimated total number of nodules greater than or equal to 1 cm: 4. [place] nodules are described as follows: 1. Location: Right mid. Size: 2.2 x 2.2 x 1.8 cm, volume 4.63 mL. Previously: 2.7 x 2.5 x 2.6 cm, volume 9.12 mL. Nodule characteristics: Composition: Mixed cystic and solid (1). Echogenicity: Isoechoic (1). Shape: Not taller than wide (0). Margins: Smooth (0). Echogenic Foci: None (0). ACR TI-RADS total points: 2 ACR TI-RADS category: 2 Significant change in size (>/= 20% in 2 dimensions and minimal increase of 2 mm or 50% or greater increase in volume): No Change in features: No Change in ACR TI-RADS risk category: No 2. Location: Right superior. Size: 1.1 x 0.9 x 0.7 cm, volume 0.40 mL. Previously: Not documented on the prior study. Nodule characteristics: Composition: Mixed cystic and solid (1). Echogenicity: Isoechoic (1). Shape: Not taller than wide (0). Margins: Smooth (0). Echogenic Foci: None (0). ACR TI-RADS total points: 3 ACR TI-RADS category: 3 3. Location: Right mid. Size: 0.9 x 0.4 x 0.6 cm, volume 0.11 mL. Previously: Not documented on the prior study. Nodule characteristics: Composition: Mixed cystic and solid (1). Echogenicity: Isoechoic (1). Shape: Not taller than wide (0). Margins: Smooth (0). Echogenic Foci: None (0). ACR TI-RADS total points: 2 ACR TI-RADS category: 2 4. Location: Right inferior. Size: 1.1 x 0.9 x 0.9 cm, volume 0.49 mL. Previously: Not documented on the prior study. Nodule characteristics: Composition: Mixed cystic and solid (1). Echogenicity: Isoechoic (1). Shape: Not taller than wide (0). Margins: Smooth (0). Echogenic Foci: Punctate echogenic foci (3). ACR TI-RADS total points: 5 ACR TI-RADS category: 4 5. Location: Left superior. Size: 1.0 x 0.6 x 0.4 cm, volume 0.12 mL. Previously: 0.4 x 0.3 x 0.4 cm, volume 0.03 mL. Nodule characteristics: Composition: Solid (2). Echogenicity: Isoechoic (1). Shape: Not taller than wide (0). Margins: Smooth (0). Echogenic Foci: Punctate echogenic foci (3). ACR TI-RADS total points: 6 ACR TI-RADS category: 4 Significant change in size (>/= 20% in 2 dimensions and minimal increase of 2 mm or 50% or greater increase in volume): Yes Change in features: Yes, punctate echogenic foci were not previously seen Change in ACR TI-RADS risk category: Yes NODES: No lymphadenopathy is seen in the tissue surrounding the thyroid gland. US/US thyroid IMPRESSION: A 1.0 cm left TR 4 thyroid nodule is increased in size from prior and demonstrates new punctate echogenic foci. Recommend one-year follow-up thyroid ultrasound. A 1.1 cm TR 4 right inferior thyroid nodule is new from prior. Recommend one-year follow-up thyroid ultrasound. The remainder of TR 2 and TR 3 thyroid nodules detailed above do not meet criteria for follow-up. [facility] Medical History Toxic multinodul goiter Subclinical hyperthyroidism Abnormal TSH H/O: hypertension Abnormal uterine bleeding Anemia Surgical History Hx of biopsy History of endometrial ablation Hx of tubal ligation Family History Father Diabetes HTN (hypertension) Mother Asthma Social History Household Members: Spouse Housing: House Alcohol intake: never Patient Tobacco Use Status: Never used Tobacco Second Hand Smoke Exposure: No Female Reproductive History Menstrual Age of Menarche: 10 Physical Exam Vital Signs: Last Vital Signs Pulse 84 08/17/24 09:42 BP 140/94 H 08/17/24 09:42 Pulse Ox 98 08/17/24 09:42 Oxygen Delivery Method Room Air 08/17/24 09:42 BMI result Body Mass Index 32.3 Assessment & Plan Assessment & Plan (1) Subclinical hyperthyroidism: Code(s): E05.90 - Thyrotoxicosis, unspecified without thyrotoxic crisis or storm Category: Medical Plan: 53-year-old female who is here today for follow up of subclinical hyperthyroidism and multinodular goiter. Has had thyroid nodules at least dating back to 2015. Apparently she did have FNA of the dominant right mid lobe 2.4 cm nodule back in November 2015 per the ultrasound report, however I do not have these results. So unclear if it was benign at that time. Thyroid ultrasound from April 2021, showed stable size of the dominant right mid lobe nodule which is mixed cystic solid, commented on as isoechoic with no other suspicious features, TR 2 nodule. Another right superior 1.1 cm new nodule TR 3 category. The subcentimeter right mid lobe nodule. A 1.1 cm right inferior TR 4 category nodule noted. A left superior solid, isoechoic nodule with echogenic foci, TR 4 category which had increased in size from subcentimeter in 2016 to 1 cm in size. Thyroid ultrasound from July 2023 showed stable size of the right midpole nodule which is when I reviewed the images mixed cystic solid, hypoechoic, TR 3 category. Right upper pole spongiform nodule remains stable in size. Right midpole subcentimeter nodule also stable in size. Right lower subcentimeter nodule TR 4 category also stable in size. The left superior TR 4 category nodule that was previously measured as 1 cm now measuring subcentimeter in size. Previously had normal thyroid function testing prior to summer. Since July 2023 she has been noted to have low TSH levels ranging anywhere from 0.11- 0.18. Normal free T4. Thyrotropin receptor antibody negative. Most recent labs done 01/12/2024 showed TSH low of 0.11, normal free T4 of 0.86. Thyroid uptake and scan from 12/02/2023, I reviewed the images myself which shows no increased uptake, however heterogenous areas of uptake noted with photopenic areas in the right upper pole, as well as the left upper pole and left lateral inferior pole. Given her uptake and scan showed photopenic areas which are collaborating with some of her nodules including the right mid lobe dominant 2.4 cm nodule that has even though he has been biopsied before in 2016 and has remained stable in size since I do not have those biopsy results in it meets criteria for FNA, 05/03/2024: Underwent FNA of the right midpole 2.4 cm thyroid nodule with benign cytology, [place] category 2. As far as the subclinical hyperthyroidism is concerned, given that she is less than 65 years of age with no history of heart disease or osteoporosis, with a TSH being greater than 0.1 at this time, she does not meet treatment criteria for subclinical hyperthyroidism in the purpose of today's appointment was to review clinical symptoms and labs. She forgot to do blood work prior to today's appointment. Overall her heart rate is stable, she does not have any significant symptoms except intermittent palpitations. At this time we will continue to monitor. We will plan to repeat a thyroid ultrasound in 1 year in April 2025. Plan: - ordered TSH, free T4, total T3 to be done now, we will reach out with the results -ordered thyroid ultrasound to be done in April 2025 prior to follow up in May 2025 (2) Toxic multinodul goiter: Code(s): E05.20 - Thyrotoxicosis with toxic multinodular goiter without thyrotoxic crisis or storm Category: Medical Plan: see above Plan See above Orders: Orders 2 US thyroid 04/23/25 E05.20 - Thyrotoxicosis with toxic multinodular goiter without thyrotoxic crisis or storm, E05.90 - Thyrotoxicosis, unspecified without thyrotoxic crisis or storm Patient Instructions: Do ultrasound of the thyroid in April 2025 , someone will call you to schedule this Follow up with me in May 2025 to discuss results Do blood work today , results will be communicated H?gase pérez ecograf?a de tiroides en marzo 2025; alguien le llamar? para programarla. Vuelva a contactarme en ezekiel 2025 para hablar sobre los resultados. H?gase un an?lisis de jo ann hoy; se le comunicar?n los resultados. Coding Level of Care Code Est Pt Level 3 (36359) Diagnoses Subclinical hyperthyroidism E05.90 Toxic multinodul goiter E05.20
--- OUTSIDE RECORDS SUMMARY | 2024-08-17 10:45 | XMS_ITS | Encounter Summary ---
Author Organization [employer] Address [address] [place] [address] [address] [place] [address] Care Team Providers Care Dub Room Engineer Name Role Phone [facility] Primary Care Provider Reason for Visit * Reason Onset Date Comments No Show 08/16/2024 Encounter Details Date Type Department Care Team ([facility] st Contact Info) Description 08/16/2024 Telephone [facility] [address], [place] [phone] [facility] [address], [place] [phone] No Show Social History Tobacco Use Types Packs/Day Years [...] encounter Miscellaneous Notes * Telephone Encounter - Isha Perkins - 08/16/2024 11:18 AM EDT PT NS FOR FU documented in this encounter Plan of Treatment Not on file documented as of this encounter Visit Diagnoses Not on filedocumented in this encounter Additional Health Concerns Assessment Noted Time PHQ-9 Depression Total Score: 0 05/16/19 11:20 AM EDT documented as of this encounter Care Teams Dub Room Engineer Relationship Specialty Start Date End Date Nikole Luna FNP [address] [place] [id number] PCP - General Family Medicine 10/16/21 documented as of this encounter
== END 2024-08-17 10:01 | disposition home or self-care (01) ==
LOC: HO.ENCR 09:40
PROVIDERS: PCP Registered Nurse; Visit Provider Student in an Organized Health Care Education/Training Program
DX: E05.90 Thyrotoxicosis, unspecified without thyrotoxic crisis or storm (principal); E05.20 Thyrotoxicosis with toxic multinodular goiter without thyrotoxic crisis or storm
CPT/HCPCS: 99213

== ENCOUNTER 2024-08-17 09:39 | Outpatient (REF) | payer OTHER, SELFPAY ==
[2024-08-17 11:34] LABS: Free T4 (Free Thyroxine) 0.82 ng/dL (0.71-1.85); Thyroid Stimulating Hormone 0.19 uIU/mL (0.32-4.0)
[2024-08-18 07:14] LABS: Triiodothyronine T3 Total 85 ng/dL (76-181)
== END 2024-08-17 09:40 | disposition home or self-care (01) ==
LOC: HO.LAB 09:39
PROVIDERS: PCP Registered Nurse; Visit Provider Student in an Organized Health Care Education/Training Program
DX: E05.20 Thyrotoxicosis with toxic multinodular goiter without thyrotoxic crisis or storm (principal)
CPT/HCPCS: 36415; 84439; 84443; 84480; 99212

== ENCOUNTER 2024-10-20 13:27 | Outpatient (REF) | payer OTHER, SELFPAY ==
--- NOTE | ~2024-10-20 | MM_ITS ---
EXAMINATION: MM SCREENING DIGITAL BREAST TOMOSYNTHESIS, BILATERAL CLINICAL INFORMATION: Screening. Asymptomatic. COMPARISON: Mammography: Comparison is made with available priors TECHNIQUE: Digital breast mammography with tomosynthesis is performed in both the craniocaudal and mediolateral oblique views along with computer-aided detection (CAD). FINDINGS: There are scattered areas of fibroglandular density (ACR BI-RADS breast composition Category b). There are no significant masses, abnormal calcifications, or other abnormalities. MM/MM tomosynthesis screening BI IMPRESSION: No mammographic evidence of malignancy. ASSESSMENT: BI-RADS BI-RADS 1 - Negative RECOMMENDATION: Routine annual mammography screening. 1 year F/U This examination should not preclude the clinical evaluation of a suspicious palpable abnormality. This patient's information was entered into a reminder system with a target due date for their next mammogram. Electronically signed by: Ping Jaimes DO 10/24/2024 02:50 PM EDT
--- OUTSIDE RECORDS SUMMARY | 2024-10-20 13:40 | XMS_ITS | Clinical Summary ---
Author Organization [facility] Address [address] [facility] [address] [place] [phone] Phone Care Team Providers Care Crystal Grower Name Role Phone Sandor Maier NP, Chiqui Primary Care Provider Loco cummins Allergies No known active allergies Medications cyclobenzaprine (FLEXERIL) 10 MG tablet Take 1 tablet (10 mg total) by mouth 3 (three) times a day as needed. 20 tablet 10/19/2019 Active ibuprofen (ADVIL,MOTRIN) 600 MG tablet Take 1 tablet (600 mg total) by mouth every 8 (eight) hours as needed for pain (specific location in comments) or fever. 20 tablet 10/19/2019 Active norethindrone (AYGESTIN) 5 mg tablet Take 1 tablet (5 mg total) by mouth daily. 30 tablet 1 09/19/2020 Active Active Problems Problem Noted Date Diagnosed Date Anemia 09/19/2020 Symptomatic anemia 09/18/2020 Overview (09/19/2020): H/o anemia with hgb 6.6 noted in chart in 2019 Abnormal uterine bleeding x ? Years, prolonged 2-3 weeks monthly per report Assessment & Plan (09/19/2020 11:42 AM EDT): Due to ongoing vaginal bleeding x1 mo Hemoglobin improved overnight to 7.8 posttransfusion She had a prior vaginal bleed that went on for some time for which midwives at [place] gave her an oral medication This bleeding started prior to her tubal ligation on 08/22 and has continued daily since then I attempted to schedule the patient a follow-up with Dr. Barboza, I was placed on voicemail, I left a message for the nursing staff to convey the circumstances of admission to Dr. Barboza. And asked my medical instrument cable fabricator to schedule her a follow- up appointment, follow-up CBC will be done on Wednesday norethindrone to start tomorrow. Patient is aware of these instructions History of anemia Abnormal uterine bleeding Overview (09/19/2020): Long h/o of prolonged menses Had endometrial biopsy in June 2020 with [facility]; took some sort of pill x a month that stopped bleeding I recommend she call her bulk station agent today to get appt within 2 weeks to establish a long term care social worker plan for her bleeding (such as daily progestin, OCP, LNG IUD) I will send in Rx for oral norethindrone to start today, presuming she is discharged Social History Tobacco Use Types Packs/Day Years Used Date Smoking Tobacco: Never Smokeless Tobacco: Never Alcohol Use Standard Drinks/Week Comments Never 0 (1 standard drink = 0.6 oz pur e alcohol) Education Answer Date Recorded Are you interested in more education? Not on alfred e 06/19/2022 Are you concerned about learning? Not on file 06/19/2022 No 06/19/2022 No 06/19/2022 Digital Access Answer Date Recorded No 07/18/2022 No 07/18/2022 No 07/18/2022 Reliable internet access at home? Not on file 07/18/2022 Device with a working camera? Not on file Comments Unknown Sex and Gender Information Value Date Recorded Sex Assigned at Female 07/14/2018 7:14 PM EDT Legal Sex Female 9:34 PM EDT Gender Identity Female 07/14/2018 7:14 PM EDT Sexual Orientation Straight 03/16/2019 10 :32 PM EST Last Filed Vital Signs Vital Sign Reading Time Taken Comments Blood Pressure 133/82 09/19/2020 6:08 AM EDT Pulse 69 09/19/2020 6:08 AM EDT Temperature 36.4 C (97.5 F) 09/19/2020 6:08 AM EDT Respiratory Rate 18 09/19/2020 6:08 AM EDT Oxygen Saturation 97% 09/19/2020 6:08 AM EDT Inhaled Oxygen Concentration - - Weight 88.5 kg (195 lb) 09/18/2020 9:20 PM EDT Height 162.6 cm (5' 4 ) 09/18/2020 9:20 PM EDT Body Mass Index 33.47 09/18/2020 9:20 PM EDT Plan of Treatment Health Maintenance Due Date Last Done Comments LIPID PANEL 1970 DEPRESSION SCREENING 1982 HEPATITIS C SCREENING 1988 HIV ONE-TIME SCREENING (18-6 5 YEARS) 1988 PAP SMEAR 09/14/1991 MAMMOGRAM 2010 COLOGUARD 09/14/2015 COLONOSCOPY 09/14/2015 COLORECTAL CANCER SCREENING 09/14/2015 FIT TEST 09/14/2015 FOBT 09/14/2015 SIGMOIDOSCOPY 09/14/2015 VIRTUAL COLONOSCOPY 09/14/2015 PNEUMOCOCCAL VACCINES (50+ years) (1 of 1 - PCV) 2020 ZOSTER VACCINES (1 of 2) 2020 Adult Td,Tdap Booster 05/25/2021 05/26/2011 COVID-19 VACCINE (3 - 2023-2 5 season) 2023 08/13/2020, 07/23/2020 HEPATITIS A VACCINES Aged Out 2012, 05/26/2011 No longer eligible based on patient's age to complete this topic SMOKING STATUS SCREENING (On ce After 26 Yrs) Completed 09/18/2020 HIB VACCINES Aged Out No longer eligi ble based on patient's age to complete this topic MENINGOCOCCAL VACCINES (ACWY) Aged Out No longer eligible based on patient's age to complete this topic MENINGOCOCCAL VACCINES (B) Aged Out N o longer eligible based on patient's age to complete this topic Medical Devices Not on file Insurance [id number] [place] [id number] [facility] [employer] [place] [address] [place] [address] [place] [address] [place] [address] [employer] [facility] [employer] [facility] [employer] Member Subscriber Plan / Payer (Ef fective 2019-Present) Name:Sayra Pringle Member ID:[id number] Relation to Subscriber:Self Name:Sayra Pringle Subscriber ID:[id number] Payer ID:Not on file Group ID:Not on file Type:Indemnity Address: [address] [place] [id number] [facility] [employer] Advance Directives For more information, please contact: [phone] (9AM - 5PM [facility], Wednesday-Wednesday) * Full Code (Latest Code Status on File) Date Activated Date Inactivated Comments 09/18/2020 9:25 PM Question Answer Comments Code Status Confirmed With: Patient Care Teams Crystal Grower Relationship Specialty Start Date End Date Chiqui Patten NP PCP - General 12/08/16 Additional Source Comments The information contained in this document represents components of the legal health record. It is not the complete legal health record.[facility]
--- OUTSIDE RECORDS SUMMARY | 2024-10-20 13:40 | XMS_ITS | Encounter Summary ---
Author Organization [employer] Address [address] [facility] [address] [place] [address] Care Team Providers Care Director Information Security Name Role Phone Nikole Luna INFANT NANNY Primary Care Provider [phone] Encounter Details Date Type Department Care Team (Late st Contact Info) Description 11/23/2022 Abstract [facility] [address] [place] [address] Kiley Arriaga Social History Tobacco Use Types Packs/Day Years Used Date Smoking Tobacco: Never Assessed Comments Unknown Sex and Gender Information Value Date Recorded Sex Assigned at Female 12/22/2021 10:20 AM EDT Legal Sex Female 10:20 AM EDT Gender Identity Female 12/22/2021 10:20 AM EDT Sexual Orientation Choose not to disclose 2021 10:20 AM EDT documented as of this encounter Plan of Treatment Not on file documented as of this encounter Procedures Procedure Name Priority Date/Time Associated Diagnosis Comments PAP/HPV Routine 07/02/2020 PAP/HPV Routine 04/17/2020 documented in this encounter Results * Pap Smear (07/02/2020) Pap Negative for intraephithelial lesion or malignancy Negative for intraephithelial lesion or malignancy, Other HPV Undetected Historical Provider HEALTH MAINTENANCE Final Result * Pap Smear (04/17/2020) Pap Other Negative for intraephithelial lesion or malignancy, Other HPV Undetected Narrative Kiley Arriaga - 04/17/2020 Unsatisfactory us Historical Provider HEALTH MAINTENANCE Final Result documented in this encounter Visit Diagnoses Not on filedocumented in this encounter Care Teams Director Information Security Relationship Specialty Start Date End Date Nikole Luna FNP [address] [place] [phone] PCP - General Family Medicine 10/16/21 documented as of this encounter
--- OUTSIDE RECORDS SUMMARY | 2024-10-20 13:40 | XMS_ITS | Clinical Summary ---
Author Organization [employer] Address [address] [facility] [address] [place] [address] Care Team Providers Care Telemarketing Sales Representative Name Role Phone Cheryl [facility] Primary Care Provider [phone] Allergies No known active allergies Medications olmesartan (Benicar) 5 MG tabletIndications :Essential hypertension Take 1 tablet (5 mg) by mouth Once per day. 30 tablet 11 03/31/2024 03/31/19 26 Active amLODIPine (Norvasc) 5 MG tabletIndications :Essential hypertension Take 1 tablet (5 mg) by mouth Once per day. 90 tablet 05/01/2024 Active Active Problems Problem Noted Date Diagnosed Date Subclinical hyperthyroidism 05/18/2024 Abnormal uterine bleeding 05/27/2023 Overview (05/27/2023): Long h/o of prolonged menses Had endometrial biopsy in June 2020 with [place]; took some sort of pill x a month that stopped bleeding I recommend she call her celluloid trimmer today to get appt within 2 weeks to establish a long-term plan for her bleeding (such as daily progestin, OCP, LNG IUD) I will send in Rx for oral norethindrone to start today, presuming she is discharged History of anemia 05/27/2023 Vitamin D deficiency 05/27/2023 Essential hypertension 07/08/2021 Endometrial hyperplasia 06/05/2021 Thyroid nodule 04/16/2021 Overview (08/16/2024): Follows with [facility] endocrinology for subclinical hyperthyroidism and multinodular goiter. Ultrasound from 07/2023 showed stable right midpole nodule T RADS 3. Right lower nodule also stable, T RADS 4. Status post FNA biopsy 05/03/2024 which was benign. Plan for repeat ultrasound in 1 year, 6-month follow-up for subclinical hyperthyroidism. Does not meet treatment recommendations at this time. Anemia 09/18/2020 Overview (05/27/2023): H/o anemia with hgb 6.6 noted in chart in 2019 Abnormal uterine bleeding x ? Years, prolonged 2-3 weeks monthly per report Last Assessment & Plan: Due to ongoing vaginal bleeding x1 mo Hemoglobin improved overnight to 7.8 posttransfusion She had a prior vaginal bleed that went on for some time for which midwives at [place] gave her an oral medication This bleeding started prior to her tubal ligation on 08/22 and has continued daily since then I attempted to schedule the patient a follow-up with Dr. Barboza, I was placed on INBEPil, I left a message for the nursing staff to convey the circumstances of admission to Dr. Barboza. And asked my medical device engineer to schedule her a follow- up appointment, follow-up CBC will be done on Wednesday norethindrone to start tomorrow. Patient is aware of these instructions Resolved Problems Problem Noted Date Diagnosed Date Resolved Date Pain of left lower extremity 06/01/2021 08/16/2024 Pain of left hip joint 04/03/202108/16 Encounters Date Type Department Care Team Description 08/17/2024 Orders Only GENERIC EXTERNAL DATA DEPARTMENT Provider, Generic External Data 08/16/2024 Telephone [facility] [address] [place] [address] CherylNikole FNP No Show 08/15/2024 Telephone [facility] [address] [place] [address] [place] chart prep from Last 3 Months Immunizations Immunization Administration Dates Next Due Hep A, Adult [...] 78 05/15/2024 11:14 AM EDT Temperature 36.3 C (97.4 F) 05/15/2024 11:14 AM EDT Respiratory Rate 20 05/15/2024 11:14 AM EDT Oxygen Saturation 99% 05/15/2024 11:14 AM EDT Inhaled Oxygen Concentration - - Weight 86.4 kg (190 lb 6.4 oz) 06/19/2024 1:05 P M EDT Height 162.6 cm (5' 4 ) 06/19/2024 1:05 PM EDT Body Mass Index 32.68 06/19/2024 1:05 PM EDT Plan of Treatment Health Maintenance Due Date Last Done Comments CT Colonography 1970 FIT DNA/Cologuard 1970 FIT 1970 FOBT 1970 HIV Screening 1970 Sigmoidoscopy 1970 Disability Screening 1970 Alcohol/Substance Use Screening 1982 Zoster Vaccines (1 of 2) 2020 Mammogram 09/01/2024 09/02/2023, 07/0 07/2022, 02/28/2020, Additional history exists Influenza Vaccine (#1) 2024 , 11/14/2013, 11/21/2012 SDOH Screening 03/31/2025 03/31/2024 Depression Screening 05/15/2025 05/15/2024, 05/16/19 Tobacco Screening 05/18/2025 05/18/2024 Cervical Cancer Screening 07/02/2025 HPV/Cotest 07/02/2025 07/02/2020, [...] 04/16/2021 COVID-19 Vaccine Completed 05/15/2024, , 07/23/2020 Pneumococcal Vaccine: 50+ Years Completed 05/15/2024 HIB Vaccines Aged Out No longer eligi ble based on patient's age to complete this topic HPV Vaccines Aged Out No longer eligi ble based on patient's age to complete this topic IPV Vaccines Aged Out No longer eligi ble based on patient's age to complete this topic Meningococcal B Vaccine Aged Out No l onger eligible based on patient's age to complete [...] Procedure Name Priority Date/Time Associated Diagnosis Comments T3, TOTAL Routine 08/17/2024 10:21 AM EDT TSH Routine 08/17/2024 10:21 AM EDT T4, FREE Routine 08/17/2024 10:21 AM EDT BI MAMMOGRAM SCREENING TOMOSYNTHESIS BILATERAL Routine 09/02/2023 11:23 AM EDT LIPID PANEL, STANDARD Routine 08/04/2023 12:08 PM EDT Class 1 obesity due to excess calories with body mass index (BMI) of 34.0 to 34.9 in adult, unspecified whether serious comorbidity present [facility] HISTORICAL HEPATITIS C AB W/REFL TO HCV RNA, QN, PCR Routine 04/16/2021 2:33 PM EST COLONOSCOPY Routine 02/24/2021 PAP/HPV Routine 07/02/2020 from Last 3 Months or Most Recently Relevant to Health Maintenance Results * T3, Total (08/17/2024 10:21 AM EDT) T3, Total 85 76 - 181 ng/dL [facility] Comment:THIS TEST WAS PERFOR MED AT:[facility] [place] [id number] OCAMPO MD 08/17/2024 10:2 1 AM EDT 08/17/2024 10:21 AM EDT Generic External Data Provider LAB BLOOD ORDERAB LES Final Result Performing Organization Address City/[facility]/ZIP Co de Phone Number [facility] [address] [place] [address] [phone] * (ABNORMAL) TSH (08/17/2024 10:21 AM EDT) [facility] Thyroid Stimulating Hormone 0.19(L) 0.32 - 4.0 uIU/mL [facility] Comment:TSH 3rd Generation ( [facility]) 08/17/2024 10:2 1 AM EDT 08/17/2024 10:21 AM EDT us Generic External Data Provider LAB BLOOD ORDERAB LES Final Result Performing Organization Address City/[facility]/ZIP Co de Phone Number [facility] [address] [place] [phone] * T4, Free (08/17/2024 10:21 AM EDT) Free T4 (Free Thyroxine) 0.82 0.71 - 1.85 ng/dL [facility] 08/17/2024 10:2 1 AM EDT 08/17/2024 10:21 AM EDT us Generic External Data Provider LAB BLOOD ORDERAB LES Final Result [facility] [address] [place] [address] [phone] * BI Mammogram Screening Tomosynthesis Bilateral (09/02/2023 11:23 AM EDT) Anatomical Region Laterality Modality Breast Bilateral Mammography 09/02/2023 11:2 3 AM EDT Narrative 09/27/2023 10:38 PM EDT [facility] [address] [place] [address] Mammography Report Signed Patient: Sayra Pringle MR#: [id number] : 1970 Acct:[id number] Age/Sex: 52 / F ADM Date: 09/02/23 Loc: HO.MAMMO Attending Dr: Marie Freedman Ordering Physician: Lucinda Palomo MD Results: 1Negative Date of Service: 09/02/23 Follow Up: 1 Year From [facility] Mammogram Procedure(s): MM tomosynthesis screening BI Accession Number(s): [id number] cc: Lucinda Palomo MD; [facility] DEPUTY SHERIFF BAILIFF EXAMINATION: MM SCREENING DIGITAL BREAST TOMOSYNTHESIS, BILATERAL [...] signed by Concepción Jama MD in OV> 09/27/23 2235 DD/ 1123 TD/TT: Labor Relations Worker: Procedure Note Donotuseinterpreter, Image - 09/27/2023 [facility] [address] [place] [address] Mammography Report Signed Patient: Abiodun Pringle#: [id number] : 1970Acct:[id number] Age/Sex: 52 / FADM Date: 09/02/23 Loc: SILVIO Attending Dr: Marie Freedman Ordering Physician: Lucinda Palomo MDResults: 1Negative Date of Service: 09/02/23Follow Up: 1 Year From Orig inal Mammogram Procedure(s): MM tomosynthesis screening BI Accession Number(s): [id number] cc: Lucinda Palomo MD; [facility] DEPUTY SHERIFF BAILIFF EXAMINATION: MM SCREENING DIGITAL BREAST TOMOSYNTHESIS, BILATERAL [...] signed by Concepción Jama MD in OV> 09/27/23 2235 DD/ 1123 TD/TT: Labor Relations Worker: Lucinda Arceo MD IMG BI PROCEDURES Fin al Result * (ABNORMAL) Lipid Panel, Standard (08/04/2023 12:08 PM EDT) Triglycerides 50 <150 mg/dL [facility] Comment:Desirable Triglyceri de: less than 150 mg/dLBorderline High Triglyceride 150-199 mg/dLHigh Triglyceride: 200-499 mg/dLVery High Triglyceride: greater than or equal to 5OO mg/dL Cholesterol 185 <200 mg/dL [facility] Comment:Desirable Cholestero l: less than 200 mg/dLBorderline High Cholesterol: 200-239 mg/dLHigh Cholesterol: greater than 239 mg/dL LDL Cholesterol Calculated 124(H) <100 mg/dL [facility] Comment:Desirable LDL: less than 100 mg/dLNear Optimal/Above Optimal LDL: 110- 129 mg/dLBorderline High LDL: 130-159 mg/dLHigh LDL: 160-189 mg/dLVery High LDL: greater than or equal to 190 mg/dL HDL Cholesterol 51 >40 mg/dL [facility] Comment:Desirable HDL: great er than 40 mg/dL Note: This HDL assay may give artificially low results in patients with liver disease. Blood Venous blood specimen / Unknown 08/04/2023 12:08 PM EDT 08/04/2023 1:14 PM EDT us [facility] DEPUTY SHERIFF BAILIFF LAB BLOOD ORDERABLES Final Re sult [facility] [address] [place] [phone] * HEPATITIS C AB W/REFL TO HCV RNA, QN, PCR (04/16/2021 2:33 PM EST) HEPATITIS C ANTIBODY NON-REACT CLAU NON-REACT CLAU [facility] INDEX 0.06 <1.00 [facility] Comment: HCV antibody was non-reactive. There is no laboratory evidence of HCV infection. In most cases, no further action is required. However, if recent HCV exposure is suspected, a test for HCV RNA (test code 62185) is suggested. For additional information please refer to [email or web address] (This link is being provided for informational/ educational purposes only.) 04/16/2021 2:33 PM EST Marie Freedman NP HISTORICAL/NON ORDERABLE LABS F inal Result [facility] [address] * (ABNORMAL) Colonoscopy (02/24/2021) Colonoscopy Abnormal( A) Normal Comment:Repeat in 5 years Historical Provider MD HEALTH MAINTENANCE Final Result * Pap Smear (07/02/2020) Pap Negative for intraephithelial lesion or malignancy Negative for intraephithelial lesion or malignancy, Other HPV Undetected Historical Provider MD HEALTH MAINTENANCE Final Result from Last 3 Months or Most Recently Relevant to Health Maintenance Insurance [facility] Care Teams Telemarketing Sales Representative Relationship Specialty Start Date End Date Nikole Luna FNP [address] [place] [phone] PCP - General Family Medicine 10/16/21
== END 2024-10-20 13:28 | disposition home or self-care (01) ==
LOC: HO.MAMMO 13:27
PROVIDERS: PCP Registered Nurse; Visit Provider Registered Nurse
DX: Z12.31 Encounter for screening mammogram for malignant neoplasm of breast (principal)
CPT/HCPCS: 77063; 77067

== ENCOUNTER → 2024-10-20 13:30 | Outpatient (BNV) | payer OTHER, SELFPAY | PROVIDERS: PCP Registered Nurse; Visit Provider Internal Medicine | DX: Z12.31 Encounter for screening mammogram for malignant neoplasm of breast (principal) | CPT/HCPCS: 77063; 77067 ==